=== PATIENT | male | born 1940 | race Caucasian/White ===

== ENCOUNTER 2018-02-10 14:17 | Outpatient (CLI) | payer MEDICARE, BC, SELFPAY ==
[2018-02-10 15:40] LABS: Abs Immature Grans 0.04 k/cumm (0.0-0.09); Absolute Basophil Count 0.02 k/cumm (0.0-0.2); Absolute Eosinophil Count 0.06 k/cumm (0.0-0.7); Absolute Lymphocyte Count 1.39 k/cumm (1.2-3.4); Absolute Monocyte Count 0.54 k/cumm (0.11-0.7); Absolute Neutrophil Count 5.64 k/cumm (1.2-6.7); Basophils % 0.3; Eosinophils % 0.8; HCT 36.6 % (40.0-50.0); HGB 13.1 g/dL (13.5-17.5); Immature Grans % 0.5; Lymphocytes % 18.1; Mean Corp. HGB Concentration 35.8 g/dL (32.0-36.0); Mean Corpuscular Hemoglobin 32.9 pg (27.0-33.0); Mean Platelet Volume 8.8 fL (8.0-11.0); Neutrophils % 73.3; Platelet Count 264 x1000/uL (130-400); RBC 3.98 m/cumm (4.50-6.00); RBC Distribution Width 12.5 % (11.8-14.1); White Blood Cell Count 7.69 k/cumm (4.4-10.8)
[2018-02-10 16:11] LABS: ALT 25 U/L (12-78); AST 19 U/L (15-37); Albumin 3.5 g/dL (3.4-5.0); Alkaline Phosphatase 78 U/L (46-116); Anion Gap 13.5 mmol/L (3-11); BUN 17 mg/dL (7-18); Bilirubin, Total 0.5 mg/dL (0.2-1.0); CO2 26.5 mmol/L (21.0-32.0); CREATININE 0.95 mg/dL (0.70-1.30); Calcium 8.8 mg/dL (8.5-10.1); Chloride 100 mmol/L (98-107); Glucose 148 mg/dL (70-100); Potassium 3.3 mmol/L (3.5-5.1); Sodium 140 mmol/L (136-145); Total Protein 6.9 g/dL (6.4-8.2)
[2018-02-13 09:22] LABS: PSA, Diagnostic 1.7 ng/ml (0-6.5)
== END 2018-02-10 14:37 ==
PROVIDERS: PCP Nurse Practitioner; Visit Provider Internal Medicine Hematology & Oncology
DX: C61 Malignant neoplasm of prostate (principal)
CPT/HCPCS: 36415; 80053; 84153; 85025

== ENCOUNTER 2018-05-02 14:36 | Outpatient (CLI) | payer MEDICARE, BC, SELFPAY ==
[2018-05-02 15:40] LABS: HCT 38.2 % (40.0-50.0); HGB 13.6 g/dL (13.5-17.5); Mean Corp. HGB Concentration 35.6 g/dL (32.0-36.0); Mean Corpuscular Hemoglobin 32.6 pg (27.0-33.0); Mean Corpuscular Volume 91.6 fL (80-95); Mean Platelet Volume 9.4 fL (8.0-11.0); Platelet Count 265 x1000/uL (130-400); RBC 4.17 m/cumm (4.50-6.00); RBC Distribution Width 12.3 % (11.8-14.1); White Blood Cell Count 7.86 k/cumm (4.4-10.8)
[2018-05-02 16:14] LABS: ALT 18 U/L (12-78); AST 19 U/L (15-37); Albumin 3.4 g/dL (3.4-5.0); Alkaline Phosphatase 85 U/L (46-116); Anion Gap 8.4 mmol/L (3-11); BUN 17 mg/dL (7-18); Bilirubin, Total 0.6 mg/dL (0.2-1.0); CO2 32.6 mmol/L (21.0-32.0); CREATININE 0.94 mg/dL (0.70-1.30); Calcium 9.2 mg/dL (8.5-10.1); Chloride 96 mmol/L (98-107); Glucose 102 mg/dL (70-100); Potassium 3.6 mmol/L (3.5-5.1); Sodium 137 mmol/L (136-145); Total Protein 6.7 g/dL (6.4-8.2)
== END 2018-05-02 14:56 ==
PROVIDERS: PCP Nurse Practitioner; Visit Provider Nurse Practitioner
DX: E78.00 Pure hypercholesterolemia, unspecified (principal); I10 Essential (primary) hypertension; R73.01 Impaired fasting glucose; Z01.818 Encounter for other preprocedural examination
CPT/HCPCS: 36415; 80053; 85027

== ENCOUNTER 2018-05-22 01:27 | Outpatient (CLI) | payer MEDICARE, BC, SELFPAY ==
[2018-05-22 11:51] LABS: Abs Immature Grans 0.05 k/cumm (0.0-0.09); Absolute Basophil Count 0.04 k/cumm (0.0-0.2); Absolute Eosinophil Count 0.22 k/cumm (0.0-0.7); Absolute Lymphocyte Count 2.49 k/cumm (1.2-3.4); Absolute Neutrophil Count 6.34 k/cumm (1.2-6.7); Basophils % 0.4; Eosinophils % 2.2; HCT 37.3 % (40.0-50.0); HGB 13.4 g/dL (13.5-17.5); Immature Grans % 0.5; Lymphocytes % 24.8; Mean Corp. HGB Concentration 35.9 g/dL (32.0-36.0); Mean Corpuscular Volume 91.9 fL (80-95); Mean Platelet Volume 8.6 fL (8.0-11.0); Neutrophils % 63.1; Platelet Count 289 x1000/uL (130-400); RBC 4.06 m/cumm (4.50-6.00); RBC Distribution Width 12.3 % (11.8-14.1); White Blood Cell Count 10.04 k/cumm (4.4-10.8)
[2018-05-22 12:03] LABS: ALT 18 U/L (12-78); AST 20 U/L (15-37); Albumin 3.4 g/dL (3.4-5.0); Alkaline Phosphatase 82 U/L (46-116); Anion Gap 10.9 mmol/L (3-11); BUN 17 mg/dL (7-18); Bilirubin, Total 0.5 mg/dL (0.2-1.0); CO2 27.1 mmol/L (21.0-32.0); CREATININE 0.87 mg/dL (0.70-1.30); Chloride 100 mmol/L (98-107); Glucose 112 mg/dL (70-100); Potassium 3.1 mmol/L (3.5-5.1); Sodium 138 mmol/L (136-145)
[2018-05-23 09:37] LABS: PSA, Diagnostic 2.5 ng/ml (0-6.5)
== END 2018-05-22 01:47 ==
PROVIDERS: PCP Nurse Practitioner; Visit Provider Internal Medicine Hematology & Oncology
DX: C61 Malignant neoplasm of prostate (principal)
CPT/HCPCS: 36415; 80053; 84153; 85025

== ENCOUNTER 2018-06-01 07:58 | Outpatient (CLI) | payer MEDICARE, BC, SELFPAY ==
[2018-06-01 13:44] LABS: BUN 15 mg/dL (7-18); CREATININE 0.97 mg/dL (0.70-1.30); Calcium 9.1 mg/dL (8.5-10.1); Chloride 101 mmol/L (98-107); Glucose 136 mg/dL (70-100); Sodium 137 mmol/L (136-145)
== END 2018-06-01 08:18 ==
PROVIDERS: PCP Nurse Practitioner; Visit Provider Internal Medicine Hematology & Oncology
DX: E87.6 Hypokalemia (principal)
CPT/HCPCS: 36415; 80048

== ENCOUNTER 2018-06-12 07:20 | Outpatient (CLI) | payer MEDICARE, BC, SELFPAY ==
[2018-06-12 11:00] LABS: HCT 42.2 % (40.0-50.0); HGB 14.8 g/dL (13.5-17.5); Mean Corp. HGB Concentration 35.1 g/dL (32.0-36.0); Mean Corpuscular Hemoglobin 32.7 pg (27.0-33.0); Mean Corpuscular Volume 93.4 fL (80-95); Mean Platelet Volume 9.2 fL (8.0-11.0); Platelet Count 316 x1000/uL (130-400); RBC 4.52 m/cumm (4.50-6.00); RBC Distribution Width 12.9 % (11.8-14.1)
[2018-06-12 11:09] LABS: ALT 17 U/L (12-78); AST 16 U/L (15-37); Albumin 3.4 g/dL (3.4-5.0); Alkaline Phosphatase 105 U/L (46-116); Anion Gap 8.6 mmol/L (3-11); BUN 17 mg/dL (7-18); Bilirubin, Total 0.6 mg/dL (0.2-1.0); CO2 29.4 mmol/L (21.0-32.0); CREATININE 0.94 mg/dL (0.70-1.30); Calcium 8.8 mg/dL (8.5-10.1); Chloride 97 mmol/L (98-107); Glucose 150 mg/dL (70-100); Potassium 3.6 mmol/L (3.5-5.1); Sodium 135 mmol/L (136-145); Total Protein 7.7 g/dL (6.4-8.2)
[2018-06-12 11:11] LABS: Absolute Basophil Count 0.14 k/cumm (0.0-0.2); Absolute Eosinophil Count 0.27 k/cumm (0.0-0.7); Absolute Lymphocyte Count 1.78 k/cumm (1.2-3.4); Absolute Monocyte Count 0.41 k/cumm (0.11-0.7); Diff Comment Manual Differential; RBC Morphology Normal
[2018-06-13 09:51] LABS: PSA, Diagnostic 4.5 ng/ml (0-6.5)
== END 2018-06-12 07:40 ==
PROVIDERS: PCP Nurse Practitioner; Visit Provider Internal Medicine Hematology & Oncology
DX: C61 Malignant neoplasm of prostate (principal)
CPT/HCPCS: 36415; 80053; 84153; 85025

== ENCOUNTER 2018-07-05 02:59 | Outpatient (CLI) | payer MEDICARE, BC, SELFPAY ==
[2018-07-05 10:13] LABS: Abs Immature Grans 0.13 k/cumm (0.0-0.09); Absolute Eosinophil Count 0.05 k/cumm (0.0-0.7); Absolute Lymphocyte Count 1.82 k/cumm (1.2-3.4); Absolute Monocyte Count 0.91 k/cumm (0.11-0.7); Absolute Neutrophil Count 9.35 k/cumm (1.2-6.7); Basophils % 0.2; Eosinophils % 0.4; HCT 39.9 % (40.0-50.0); HGB 14.2 g/dL (13.5-17.5); Immature Grans % 1.1; Lymphocytes % 14.8; Mean Corp. HGB Concentration 35.6 g/dL (32.0-36.0); Mean Corpuscular Hemoglobin 32.8 pg (27.0-33.0); Mean Corpuscular Volume 92.1 fL (80-95); Mean Platelet Volume 8.7 fL (8.0-11.0); Monocytes % 7.4; Neutrophils % 76.1; Platelet Count 292 x1000/uL (130-400); RBC 4.33 m/cumm (4.50-6.00); RBC Distribution Width 12.2 % (11.8-14.1); White Blood Cell Count 12.29 k/cumm (4.4-10.8)
[2018-07-05 10:16] LABS: Absolute Basophil Count 0.02 k/cumm (0.0-0.2)
[2018-07-05 10:17] LABS: ALT 17 U/L (12-78); AST 17 U/L (15-37); Albumin 3.6 g/dL (3.4-5.0); Alkaline Phosphatase 97 U/L (46-116); Anion Gap 10.8 mmol/L (3-11); BUN 17 mg/dL (7-18); Bilirubin, Total 0.8 mg/dL (0.2-1.0); CO2 27.2 mmol/L (21.0-32.0); Calcium 9.1 mg/dL (8.5-10.1); Chloride 95 mmol/L (98-107); Glucose 101 mg/dL (70-100); Potassium 3.5 mmol/L (3.5-5.1); Sodium 133 mmol/L (136-145); Total Protein 7.3 g/dL (6.4-8.2)
[2018-07-06 10:02] LABS: PSA, Diagnostic 3.8 ng/ml (0-6.5)
== END 2018-07-05 03:19 ==
PROVIDERS: PCP Nurse Practitioner; Visit Provider Internal Medicine Hematology & Oncology
DX: C61 Malignant neoplasm of prostate (principal)
CPT/HCPCS: 36415; 80053; 84153; 85025

== ENCOUNTER 2018-08-15 09:35 | Outpatient (CLI) | payer MEDICARE, BC, SELFPAY ==
[2018-08-15 10:32] LABS: Abs Immature Grans 0.08 k/cumm (0.0-0.09); Absolute Basophil Count 0.02 k/cumm (0.0-0.2); Absolute Eosinophil Count 0.05 k/cumm (0.0-0.7); Absolute Lymphocyte Count 1.35 k/cumm (1.2-3.4); Absolute Monocyte Count 0.78 k/cumm (0.11-0.7); Absolute Neutrophil Count 7.99 k/cumm (1.2-6.7); Basophils % 0.2; Eosinophils % 0.5; HCT 37.5 % (40.0-50.0); Immature Grans % 0.8; Lymphocytes % 13.1; Mean Corp. HGB Concentration 34.7 g/dL (32.0-36.0); Mean Corpuscular Hemoglobin 32.7 pg (27.0-33.0); Mean Corpuscular Volume 94.2 fL (80-95); Mean Platelet Volume 9.3 fL (8.0-11.0); Monocytes % 7.6; Neutrophils % 77.8; Platelet Count 284 x1000/uL (130-400); RBC 3.98 m/cumm (4.50-6.00); RBC Distribution Width 12.5 % (11.8-14.1); White Blood Cell Count 10.27 k/cumm (4.4-10.8)
[2018-08-15 10:55] LABS: ALT 21 U/L (12-78); AST 17 U/L (15-37); Albumin 3.5 g/dL (3.4-5.0); Alkaline Phosphatase 81 U/L (46-116); Anion Gap 9.6 mmol/L (3-11); BUN 17 mg/dL (7-18); Bilirubin, Total 0.8 mg/dL (0.2-1.0); CO2 27.4 mmol/L (21.0-32.0); CREATININE 0.87 mg/dL (0.70-1.30); Calcium 8.7 mg/dL (8.5-10.1); Chloride 98 mmol/L (98-107); Glucose 140 mg/dL (70-100); Potassium 3.5 mmol/L (3.5-5.1); Sodium 135 mmol/L (136-145); Total Protein 6.4 g/dL (6.4-8.2)
[2018-08-16 09:12] LABS: PSA, Diagnostic 2.7 ng/ml (0-6.5)
== END 2018-08-15 09:55 ==
PROVIDERS: PCP Nurse Practitioner; Visit Provider Internal Medicine Hematology & Oncology
DX: C61 Malignant neoplasm of prostate (principal)
CPT/HCPCS: 36415; 80053; 84153; 85025

== ENCOUNTER 2018-11-09 01:55 | Outpatient (CLI) | payer MEDICARE, SELFPAY ==
[2018-11-09 08:31] LABS: Hemoglobin A1C 6.6 % (4.5-6.2)
[2018-11-09 09:14] LABS: ALT 24 U/L (12-78); AST 17 U/L (15-37); Albumin 3.5 g/dL (3.4-5.0); Alkaline Phosphatase 79 U/L (46-116); Anion Gap 12.8 mmol/L (3-11); BUN 14 mg/dL (7-18); Bilirubin, Total 0.9 mg/dL (0.2-1.0); CO2 28.2 mmol/L (21.0-32.0); CREATININE 0.87 mg/dL (0.70-1.30); Calcium 8.8 mg/dL (8.5-10.1); Calculated LDL 66 mg/dL; Chloride 98 mmol/L (98-107); Cholesterol 159 mg/dL (50-200); Glucose 108 mg/dL (70-100); HDL Cholesterol 44 mg/dL (40-60); Potassium 3.4 mmol/L (3.5-5.1); Sodium 139 mmol/L (136-145); Total Protein 6.6 g/dL (6.4-8.2); Triglyceride 245 mg/dL (30-150)
== END 2018-11-09 02:15 ==
PROVIDERS: PCP Nurse Practitioner; Visit Provider Nurse Practitioner
DX: E78.00 Pure hypercholesterolemia, unspecified (principal); I10 Essential (primary) hypertension; R73.01 Impaired fasting glucose
CPT/HCPCS: 36415; 80053; 80061; 83721; 83036

== ENCOUNTER 2018-11-16 01:47 | Outpatient (CLI) | payer MEDICARE, SELFPAY ==
[2018-11-16 09:51] LABS: Absolute Basophil Count 0.03 k/cumm (0.0-0.2); Absolute Eosinophil Count 0.04 k/cumm (0.0-0.7); Absolute Monocyte Count 1.02 k/cumm (0.11-0.7); Basophils % 0.2; Eosinophils % 0.3; HCT 38.1 % (40.0-50.0); HGB 13.6 g/dL (13.5-17.5); Immature Grans % 0.8; Lymphocytes % 10.1; Mean Corp. HGB Concentration 35.7 g/dL (32.0-36.0); Mean Corpuscular Hemoglobin 32.9 pg (27.0-33.0); Mean Corpuscular Volume 92.3 fL (80-95); Mean Platelet Volume 8.7 fL (8.0-11.0); Monocytes % 7.9; Neutrophils % 80.7; Platelet Count 284 x1000/uL (130-400); RBC 4.13 m/cumm (4.50-6.00); RBC Distribution Width 11.9 % (11.8-14.1); White Blood Cell Count 12.89 k/cumm (4.4-10.8)
[2018-11-16 10:29] LABS: ALT 21 U/L (12-78); AST 13 U/L (15-37); Albumin 2.4 g/dL (3.4-5.0); Alkaline Phosphatase 70 U/L (46-116); Anion Gap 8.4 mmol/L (3-11); BUN 18 mg/dL (7-18); Bilirubin, Total 0.8 mg/dL (0.2-1.0); CO2 28.6 mmol/L (21.0-32.0); CREATININE 0.83 mg/dL (0.70-1.30); Calcium 9.2 mg/dL (8.5-10.1); Chloride 98 mmol/L (98-107); Glucose 147 mg/dL (70-100); Potassium 3.3 mmol/L (3.5-5.1); Sodium 135 mmol/L (136-145); Total Protein 6.7 g/dL (6.4-8.2)
[2018-11-17 10:19] LABS: PSA, Diagnostic 6.2 ng/ml (0-6.5)
== END 2018-11-16 02:07 ==
PROVIDERS: PCP Nurse Practitioner; Visit Provider Internal Medicine Hematology & Oncology
DX: C61 Malignant neoplasm of prostate (principal)
CPT/HCPCS: 36415; 80053; 84153; 85025

== ENCOUNTER 2018-12-05 01:38 | Outpatient (CLI) | payer MEDICARE, SELFPAY ==
--- NOTE | 2018-12-05 08:15 | DI.NM_ITS ---
SYMPTOMS/DIAGNOSIS: RISING PSA, EVALUATE FOR BONE METS, H/O PROSTATE CA, C61 WHOLE BODY BONE SCAN: 24.6 mCi of technetium 99 labelled methylene diphosphonate was injected intravenously. Examination is compared with the previous whole body bone scan from [facility] of 08/09/2017. There are a few small focal areas of minimally increased uptake involving lumbar spine, which are nonspecific and which are consistent with degenerative changes. A small focus of increased uptake is also noted at the proximal aspect of the left 7th rib. This is also nonspecific. Today's CT does not show a specific lesion at this site, but there are degenerative changes throughout the thoracic spine. Focus of mildly increased uptake is also seen in the right 6th rib anteriorly; this may represent prior trauma. No other area of significantly increased uptake seen. CONCLUSION: A few foci of nonspecific increased uptake are seen consistent with degenerative change. The pattern of presumed degenerative changes has changed slightly since the previous examination, but there is no convincing evidence of bony metastatic disease.
[2018-12-05 08:52] LABS: Abs Immature Grans 0.11 k/cumm (0.0-0.09); Absolute Basophil Count 0.03 k/cumm (0.0-0.2); Absolute Eosinophil Count 0.06 k/cumm (0.0-0.7); Absolute Lymphocyte Count 2.42 k/cumm (1.2-3.4); Basophils % 0.3; Eosinophils % 0.5; HCT 38.3 % (40.0-50.0); HGB 13.6 g/dL (13.5-17.5); Lymphocytes % 21.2; Mean Corp. HGB Concentration 35.5 g/dL (32.0-36.0); Mean Corpuscular Hemoglobin 33.1 pg (27.0-33.0); Mean Corpuscular Volume 93.2 fL (80-95); Mean Platelet Volume 9.2 fL (8.0-11.0); Monocytes % 8.8; Neutrophils % 68.2; Platelet Count 272 x1000/uL (130-400); RBC 4.11 m/cumm (4.50-6.00); RBC Distribution Width 12.3 % (11.8-14.1); White Blood Cell Count 11.42 k/cumm (4.4-10.8)
[2018-12-05 08:53] LABS: Absolute Neutrophil Count 7.79 k/cumm (1.2-6.7)
[2018-12-05 09:16] LABS: ALT 31 U/L (12-78); AST 20 U/L (15-37); Albumin 3.6 g/dL (3.4-5.0); Alkaline Phosphatase 70 U/L (46-116); Anion Gap 13.4 mmol/L (3-11); BUN 15 mg/dL (7-18); Bilirubin, Total 0.7 mg/dL (0.2-1.0); CO2 26.6 mmol/L (21.0-32.0); CREATININE 0.94 mg/dL (0.70-1.30); Calcium 8.7 mg/dL (8.5-10.1); Chloride 97 mmol/L (98-107); Glucose 112 mg/dL (70-100); Sodium 137 mmol/L (136-145); Total Protein 7.2 g/dL (6.4-8.2)
[2018-12-05 09:19] LABS: Potassium 2.5 mmol/L (3.5-5.1)
--- NOTE | 2018-12-05 10:30 | DI.CT_ITS ---
SYMPTOM/DIAGNOSIS: PROSTATE CA C61, RISING PSA. RESTAGING. CHEST , ABDOMEN AND PELVIS CT: 12/05 CT examination of the chest, abdomen and pelvis was performed with a bolus infusion of 100 cc Omnipaque 350 and ingestion of dilute Barium. There are multiple enlarged lymph nodes in the superior mediastinum with a 28 mm in diameter right paratracheal node at the level of the aortic arch. There is subcarinal adenopathy noted as well measuring up to about 4.5 cm in diameter on transaxial images. There is an 18 mm in diameter left perihilar rounded nodule in the lower lobe adjacent to the inner lobar fissure. No pleural effusion seen. Areas of atelectasis noted in the left lung base. Tracheobronchial tree appears intact. No evidence of pulmonary embolic disease. Thoracic aorta and major branches appear intact. Cardiac size within normal limits. No pericardial effusion. There are multiple low attenuation lesions in the liver. The largest, which lies in the right hepatic lobe, measures about 15 mm in diameter. This appears to have been present on previous examination of Feb 2012 and measures about 14 mm in diameter at that time. Most of the hepatic lesions have attenuation consistent with cysts. The largest lesion has intermediate attenuation and may represent hemangioma. Metastatic lesion not excluded but less likely considering the lack of waste/materials exchange specialist time. Gallbladder, bile ducts and pancreas are unremarkable. Right renal cysts noted. Otherwise the kidneys and adrenals are unremarkable. No retroperitoneal pelvic or mesenteric adenopathy. Small and large bowel are unremarkable in appearance. Abdominal aorta is of normal diameter and no major vascular abnormality is seen. Note is made of Fink rods at the lumbosacral junction. No focal bony lesion identified on scanning of the chest, abdomen or pelvis. Marked degenerative changes noted throughout the spine. CONCLUSION: Findings of mediastinal adenopathy and left perihilar lung mass, no prior chest CT available for comparison. The findings could represent metastatic disease from prostate carcinoma but the possibility of primary lung carcinoma would also have to be raised. Indeterminate hepatic lesions most likely represent benign process as they are largely unchanged from previous CT of 2011. No additional significant imaging findings.
[2018-12-05] MEDS: Omnipaque 350 MG/ML 100 ML BTL IJ (10:33)
[2018-12-05] MEDS: Breeza Beverage 473 ML BTL PO (10:34)
[2018-12-05] MEDS: Omnipaque 350 MG/ML 50 ML BTL PO (10:34)
--- NOTE | 2018-12-06 05:09 | NUR.NOTE ---
Nursing Note: faxed referal 12/06/18
[2018-12-06 09:43] LABS: PSA, Screening 7.4 ng/ml (0-6.5)
== END 2018-12-05 01:58 ==
PROVIDERS: PCP Nurse Practitioner; Visit Provider Nurse Practitioner Adult Health
DX: R97.21 Rising PSA following treatment for malignant neoplasm of prostate (principal)
CPT/HCPCS: 74177; 78306; 80053; 84153; 71260; 85025; J3490; Q9967

== ENCOUNTER 2018-12-05 11:34 | Emergency (ER) | payer MEDICARE, SELFPAY ==
--- NOTE | 2018-12-05 11:38 | NUR.NOTE ---
Nursing Note: pt was sent here from DR Cottrell for having a critical K level pt took 2 of his at home potassium pills 1100 to fix this PT is unsure of the dosage
[2018-12-05 11:40] VITALS: BP 152/73; PULSE 72; RESP 16; TEMP 36.5; O2SAT 95
--- NOTE | 2018-12-05 11:54 | W.ED.GENAD ---
Discharge Plan Disposition Patient Disposition: HOME Condition: Good Discharge Details Chief Complaint: GenMedical Clinical Impression: Hypokalemia Primary Care Provider: Kenisha Steinberg ED Provider: Alex Garay Home Meds and New Rx's Prescriptions: Continued acetaminophen [Tylenol] 325 MG tablet 1 - 2 tab PO PRN RF: 0 lupron 1 ea IM DIRECTED RF: 0 aspirin [Aspirin Low-Strength] 81 MG tablet,chewable 81 mg PO DAILY Qty: 1 RF: 12 multivitamin [Daily Vitamin] 1 EACH tablet 1 ea PO DAILY RF: 0 naproxen 250 MG tablet 250 mg PO PRN RF: 0 capsaicin 60 GM cream 1 applic Topical DAILY RF: 0 magnesium oxide 400 MG tablet 400 mg PO DAILY RF: 0 abiraterone [Zytiga] 250 MG tablet 4 tab PO DAILY RF: 0 prednisone 5 MG tablet 5 mg PO BID RF: 0 calcium carbonate-vitamin D3 [Calcium 600 + D(3)] 1 EACH tablet 1 ea PO BID RF: 0 omega 0-azv-fkw-fish oil 1 EACH capsule 1 ea PO DAILY RF: 0 potassium chloride 10 MEQ capsule, extended release 40 meq PO DAILY Qty: 360 RF: 3 omeprazole 20 mg capsule,delayed release(DR/EC) 20 mg PO DAILY Qty: 90 RF: 3 atenolol-chlorthalidone [Tenoretic 50] 50-25 mg tablet 1 tab PO DAILY Qty: 90 RF: 3 atorvastatin 20 mg tablet 20 mg PO QHS Qty: 90 RF: 3 Discharge Instructions Instructions: Hypokalemia (ED) Additional Instructions: For the next 3 days please take 3 tablets in the morning and 3 tablets in the afternoon for a total of 60 mEq daily. Please follow-up with your primary care provider for redraw of your labs and return to the emergency department for any new or worsening symptoms. Referrals: Kenisha Steinberg, JENNYFER [Primary Care Provider] - 2 days (For recheck of your labs) Discharge Data Discharge Date/Time-TO BE ENTERED AT DEPARTURE: 12/05/18 15:35 Medical Decision Making Patient presenting the emergency department for chief complaint of low potassium. Patient states that he was informed by his oncologist that he should come to the emergency department due to low potassium of 2.5. Patient states that he has ongoing low potassium and typically takes potassium pills but due to needing to be n.p.o. for CT imaging that he had done this morning he had not taken his oral potassium. When finding out it was low he took 2 tablets prior to coming to the emergency department. This was a total of 20 mEq. Patient denies any chest pain, muscle cramps, states that he is otherwise asymptomatic and has no complaints. Physical exam is unremarkable. Plan to check patient's labs and further give potassium repletion. Of notation patient is due for a bone scan and already had preprocedural injection given that patient is asymptomatic I feel that if radiology can still perform this that patient is stable to continue with this test. Review of labs does show a potassium of 2.7 nonspecific elevated white blood cell count, low sodium and chloride and increased anion gap. Given this patient was given IV potassium and plan to give further oral potassium after 10 mEq IV. Patient reassessed after IV potassium was completed and still remains asymptomatic. Given this I feel that patient can be safely discharged with continuing oral potassium. For the next 3 days I did have patient increase potassium by 20 mEq for a total of 60 mEq daily and then prefer to have patient rechecked by primary care provider for reassessment of his labs. Return precautions were discussed. After discussion of diagnosis and plan of care patient has no further needs, questions, or concerns and states clear understanding to return to the emergency department for any worsening symptoms. HPI General Mode of arrival: ambulatory. Date/Time Provider Initiated Documentation: 12/05/18 11:42. Limitations to Documentation: no limitations. Information obtained by: patient and RN notes reviewed. History of Present Illness 78 year old M presents to the emergency department with the chief complaint of low potassium, described as similar to prior episodes, Quality is described as other (Denies any pain or discomfort), Patient notes no other symptoms.. Patient did receive the following treatments prior to arrival, other (2 tablets oral potassium total 20meq) Related Data Home Medications Medication Instructions Recorded Confirmed acetaminophen [Tylenol] 1 - 2 tab PO PRN 07/10/12 12/05/18 Lupron 1 ea IM DIRECTED 07/12/12 12/05/18 aspirin [Aspirin Low-Strength] 81 mg PO DAILY #1 tab-cap 08/31/13 12/05/18 multivitamin [Daily Vitamin] 1 ea PO DAILY 11/23/13 12/05/18 naproxen 250 mg PO PRN 11/18/14 12/05/18 capsaicin 1 applic TOPICAL DAILY script 07/22/16 12/05/18 magnesium oxide 400 mg PO DAILY 08/27/16 12/05/18 abiraterone [Zytiga] 4 tab PO DAILY 10/08/16 12/05/18 calcium carbonate-vitamin D3 1 ea PO BID 03/10/17 12/05/18 [Calcium 600 + D(3)] prednisone 5 mg PO BID tab-cap 03/10/17 12/05/18 omega 3-kzz-kml-fish oil 1 ea PO DAILY 08/18/17 12/05/18 potassium chloride 40 meq PO DAILY #360 tab-cap 11/23/17 12/05/18 omeprazole 20 mg capsule,delayed 20 mg PO DAILY #90 cap 06/19/18 12/05/18 release atenolol 50 mg-chlorthalidone 25 1 tab PO DAILY #90 tab-cap 08/14/18 12/05/18 mg tablet atorvastatin 20 mg tablet 20 mg PO QHS #90 tab 10/30/18 12/05/18 Previous Rx's Medication Instructions Recorded potassium chloride 40 meq PO DAILY #360 tab-cap 11/23/17 omeprazole 20 mg capsule,delayed 20 mg PO DAILY #90 cap 06/19/18 release atenolol 50 mg-chlorthalidone 25 1 tab PO DAILY #90 tab-cap 08/14/18 mg tablet atorvastatin 20 mg tablet 20 mg PO QHS #90 tab 10/30/18 Allergies Allergy/AdvReac Type Severity Reaction Status Date / Time amlodipine Allergy Severe swelling Verified 12/05/18 11:42 of face losartan AdvReac Intermediate Jittery Verified 12/05/18 11:42 hydrochlorothiazide AdvReac Unknown Verified 12/05/18 11:42 lisinopril AdvReac cough Verified 12/05/18 11:42 General Stated Complaint: GenMedical BRANDON: 3 Review of Systems Constitutional Denies body ache(s), Denies chills and Denies fever(s) Cardiovascular Denies chest pain and Denies dyspnea Respiratory Denies dyspnea Gastrointestinal Denies abdominal pain, Denies nausea and Denies vomiting Musculoskeletal Denies myalgias and Denies muscle cramps Integumentary/Breasts Denies rash Neurologic Denies sensory deficit [facility] Medical History GERD (gastroesophageal reflux disease) HLD (hyperlipidemia) HTN (hypertension) IFG (impaired fasting glucose) Prostate cancer Surgical History S/P cervical discectomy (Resolved 06/13/18) Social History Smoking/Tobacco Use Status: Never Alcohol Intake: never Drug use: Never Do you feel safe at home: Yes Do you feel safe in your relationship?: Yes Exam Const General: cooperative, no acute distress and not ill appearing Orientation: alert, awake and oriented x3 HENMT Mouth: moist mucous membranes Resp Effort & Inspection: normal respiratory effort, able to speak in complete sentences and no respiratory distress Cardio Rate: regular rate Rhythm: regular rhythm Heart Sounds: S1 normal, S2 normal, no click, no gallops, no murmurs and no rubs Neuro General: alert, awake, oriented x3, moves all extremities and no focal motor deficits Sensory Exam: no sensory deficits noted Course Vital Signs Temperature 36.5 C 12/05/18 11:40 Pulse 72 12/05/18 11:40 Respiratory Rate 16 12/05/18 11:40 Blood Pressure 152/73 H 12/05/18 11:40 Pulse Oximetry 95 12/05/18 11:40 Temperature 36.5 C 12/05/18 11:40 Temperature Source Skin 12/05/18 11:40 Pulse 72 12/05/18 11:40 Respiratory Rate 16 12/05/18 11:40 Respiratory Effort 12/05/18 11:42 Blood Pressure 152/73 H 12/05/18 11:40 Blood Pressure Position Supine 12/05/18 11:40 Pulse Oximetry 95 12/05/18 11:40 Oxygen Delivery Method Room Air 12/05/18 11:40 Oxygen Flow Rate 0 12/05/18 11:40 Pain Level 0 12/05/18 11:40
[2018-12-05 12:04] LABS: Abs Immature Grans 0.11 k/cumm (0.0-0.09); Absolute Basophil Count 0.03 k/cumm (0.0-0.2); Absolute Eosinophil Count 0.06 k/cumm (0.0-0.7); Absolute Lymphocyte Count 2.16 k/cumm (1.2-3.4); Absolute Monocyte Count 0.91 k/cumm (0.11-0.7); Basophils % 0.2; Eosinophils % 0.5; HCT 38.7 % (40.0-50.0); HGB 13.7 g/dL (13.5-17.5); Immature Grans % 0.9; Mean Corp. HGB Concentration 35.4 g/dL (32.0-36.0); Mean Corpuscular Hemoglobin 32.7 pg (27.0-33.0); Mean Corpuscular Volume 92.4 fL (80-95); Mean Platelet Volume 9.2 fL (8.0-11.0); Monocytes % 7.2; Neutrophils % 74.2; Platelet Count 265 x1000/uL (130-400); RBC 4.19 m/cumm (4.50-6.00); RBC Distribution Width 12.2 % (11.8-14.1)
[2018-12-05 12:05] LABS: Absolute Neutrophil Count 9.42 k/cumm (1.2-6.7)
[2018-12-05 12:20] LABS: ALT 28 U/L (12-78); AST 18 U/L (15-37); Albumin 3.4 g/dL (3.4-5.0); Alkaline Phosphatase 67 U/L (46-116); Anion Gap 12.2 mmol/L (3-11); BUN 15 mg/dL (7-18); Bilirubin, Total 0.7 mg/dL (0.2-1.0); CO2 26.8 mmol/L (21.0-32.0); CREATININE 0.97 mg/dL (0.70-1.30); Calcium 8.4 mg/dL (8.5-10.1); Chloride 95 mmol/L (98-107); Glucose 159 mg/dL (70-100); Sodium 134 mmol/L (136-145)
[2018-12-05 12:21] LABS: Potassium 2.7 mmol/L (3.5-5.1)
[2018-12-05] MEDS: POTASSIUM CHLORIDE 10 MEQ/100 ML BAG 100 MEQ IVPB (12:59)
[2018-12-05] MEDS: Normal Saline 500 ML IV (12:59)
[2018-12-05 17:42] VITALS: BP 152/73; PULSE 72; RESP 16; TEMP 36.5; O2SAT 95
== END 2018-12-05 15:35 | disposition home or self-care (01) ==
PROVIDERS: Emergency Provider Nurse Practitioner Family; PCP Nurse Practitioner
DX: E87.6 Hypokalemia (principal); I10 Essential (primary) hypertension; C61 Malignant neoplasm of prostate
CPT/HCPCS: 36415; 74177; 78306; 80053; 84153; 93005; 96361; 96365; 99284; 71260; 85025; 93010; 99283; J3480; J3490; Q9967

== ENCOUNTER 2018-12-08 08:14 | Outpatient (CLI) | payer MEDICARE, SELFPAY ==
[2018-12-08 09:31] LABS: Potassium 3.3 mmol/L (3.5-5.1)
== END 2018-12-08 08:34 ==
PROVIDERS: PCP Nurse Practitioner; Visit Provider Nurse Practitioner
DX: E87.6 Hypokalemia (principal)
CPT/HCPCS: 36415; 84132

== ENCOUNTER 2018-12-13 01:40 | Outpatient (CLI) | payer MEDICARE, SELFPAY ==
[2018-12-13 07:40] LABS: Absolute Basophil Count 0.02 k/cumm (0.0-0.2); Absolute Eosinophil Count 0.09 k/cumm (0.0-0.7); Absolute Lymphocyte Count 1.58 k/cumm (1.2-3.4); Absolute Monocyte Count 0.78 k/cumm (0.11-0.7); Absolute Neutrophil Count 9.62 k/cumm (1.2-6.7); Basophils % 0.2; Eosinophils % 0.7; HCT 37.9 % (40.0-50.0); HGB 13.2 g/dL (13.5-17.5); Immature Grans % 0.8; Mean Corp. HGB Concentration 34.8 g/dL (32.0-36.0); Mean Corpuscular Hemoglobin 32.8 pg (27.0-33.0); Monocytes % 6.4; Neutrophils % 78.9; Platelet Count 322 x1000/uL (130-400); RBC 4.03 m/cumm (4.50-6.00); RBC Distribution Width 12.2 % (11.8-14.1); White Blood Cell Count 12.19 k/cumm (4.4-10.8)
[2018-12-13 07:53] LABS: ALT 31 U/L (12-78); AST 21 U/L (15-37); Albumin 3.3 g/dL (3.4-5.0); Alkaline Phosphatase 69 U/L (46-116); Anion Gap 12.7 mmol/L (3-11); BUN 14 mg/dL (7-18); Bilirubin, Total 1.1 mg/dL (0.2-1.0); CO2 25.3 mmol/L (21.0-32.0); CREATININE 0.88 mg/dL (0.70-1.30); Calcium 8.6 mg/dL (8.5-10.1); Chloride 97 mmol/L (98-107); Glucose 125 mg/dL (70-100); Potassium 3.4 mmol/L (3.5-5.1); Sodium 135 mmol/L (136-145); Total Protein 6.9 g/dL (6.4-8.2)
[2018-12-14 11:47] LABS: PSA, Screening 9.6 ng/ml (0-6.5)
== END 2018-12-13 02:00 ==
PROVIDERS: Nurse Practitioner Adult Health; PCP Nurse Practitioner; Visit Provider Internal Medicine Hematology & Oncology
DX: C61 Malignant neoplasm of prostate (principal)
CPT/HCPCS: 36415; 80053; 84153; 85025

== ENCOUNTER 2019-01-08 13:08 | Emergency (ER) | payer MEDICARE, SELFPAY ==
[2019-01-08] VITALS (29 sets, daily range): BP systolic 106–135; BP diastolic 48–76; PULSE 60–75; RESP 14–26; TEMP 36.4–36.9; O2SAT 88–95
--- NOTE | 2019-01-08 13:23 | ED.GENADUL_ITS ---
Discharge Plan Disposition Patient Disposition: HOME Condition: Stable Discharge Details Chief Complaint: SOB Clinical Impression: Dyspnea, Hypokalemia, Hypomagnesemia, Left lower lobe pneumonia Primary Care Provider: Kenisha Steinberg ED Provider: Yadiel Soares Home Meds and New Rx's Prescriptions: New cefpodoxime 200 mg tablet 200 mg PO BID Qty: 20 RF: 0 Continued fexofenadine [Allergy Relief (fexofenadine)] 180 mg tablet 180 mg PO DAILY Qty: 7 RF: 0 acetaminophen [Tylenol] 325 MG tablet 1 - 2 tab PO PRN RF: 0 lupron 1 ea IM DIRECTED RF: 0 aspirin [Aspirin Low-Strength] 81 MG tablet,chewable 81 mg PO DAILY Qty: 1 RF: 12 multivitamin [Daily Vitamin] 1 EACH tablet 1 ea PO DAILY RF: 0 naproxen 250 MG tablet 250 mg PO PRN RF: 0 capsaicin 60 GM cream 1 applic Topical DAILY RF: 0 magnesium oxide 400 MG tablet 400 mg PO DAILY RF: 0 calcium carbonate-vitamin D3 [Calcium 600 + D(3)] 1 EACH tablet 1 ea PO BID RF: 0 omega 8-nex-bnf-fish oil 1 EACH capsule 1 ea PO DAILY RF: 0 omeprazole 20 mg capsule,delayed release(DR/EC) 20 mg PO DAILY Qty: 90 RF: 3 atenolol-chlorthalidone [Tenoretic 50] 50-25 mg tablet 1 tab PO DAILY Qty: 90 RF: 3 atorvastatin 20 mg tablet 20 mg PO QHS Qty: 90 RF: 3 enzalutamide 40 mg capsule 160 mg PO DAILY RF: 0 potassium chloride 10 MEQ capsule, extended release 20 meq PO TID RF: 0 Discharge Instructions Instructions: Hypokalemia (ED), Dyspnea (ED), Hypomagnesemia (ED), Pneumonia (ED) Additional Instructions: Please return immediately to the emergency department if you develop any new or worsening symptoms or if you become otherwise concerned. It is extremely important that you call as soon as possible to schedule follow-up appointments this week with both your primary care doctor and your oncologist as we discussed. You received potassium in the emergency department today and should continue your potassium supplementation at home. Please take antibiotics as prescribed. Follow-up with Dr. Cottrell in clinic as planned. Return for any acute concern Referrals: Jonnie Cottrell MD [MD CONSULTING PHYSICIAN] - Kenisha Steinberg NP [Primary Care Provider] - Discharge Data Discharge Date/Time-TO BE ENTERED AT DEPARTURE: 01/08/19 18:47 Medical Decision Making <Marilee Johnson MD - Last Filed: 01/29/19 16:55> Loyd Roche is an 78-year-old man with a history of prostate cancer currently undergoing treatment, hypertension, hyperlipidemia who presented to the emergency department with dyspnea with exertion for the past 2 weeks. On exam patient is well and nontoxic appearing. Lungs are clear to auscultation. No lower extremity edema or posterior calf tenderness to palpation. Concern for pneumonia versus PE versus less likely ACS versus other. Exam/history is not consistent with acute emergent intracranial process, acute emergent intra- abdominal process, sepsis. Plan for EKG, CT chest, screening labs, telemetry. Will monitor and reassess. Labs resulted with hypo kalemia at 2.7, magnesium at 1.5. Will replete potassium and magnesium. I did discuss patient presentation results with Dr. Cottrell, his oncologist, who agreed with CT chest and recommended that if patient not be admitted for respiratory concerns, then patient could either be more preferably admitted for inpatient monitoring of his electrolyte status or followed as an outpatient if patient desired discharge. Patient continues to have no complaint while at rest. We will continue to monitor. Patient continues to be asymptomatic on reassessment. Patient signed out to Dr. Soares at time of shift change with CT, repeat troponin, reassessment pending. Medical Records Medical records reviewed: Yes I reviewed the patient's medical records. Lab Data Lab results reviewed: Yes I reviewed the patient's lab results. ECG Data Attestation: I personally reviewed and interpreted this ECG (s) as follows: Interpretation: EKG shows sinus rhythm at 72, normal axis, diffuse nonspecific ST changes, these same changes are present on EKG 05/13, however due to artifact on prior EKG unclear if changes are at baseline. Nondiagnostic EKG, no STEMI. <Yadiel Soares MD - Last Filed: 01/08/19 20:00> Received signout from Dr. Johnson. Please see her note regarding details initial presentation, exam, plan of care. Patient's CT scan of the chest revealed new airspace consolidation in the left lower lobe with air bronchograms, favoring pneumonia. Bilateral atelectasis. Stable 2 cm nodule. Stable liver densities. Repeat troponin negative. CT scan with developing left lower lobe airspace disease consistent with pneumonia. Discussed with patient he opts for treatment as an outpatient as per previous conversation with Dr. Johnson. We will start him on oral cephalosporin, he will follow-up with Dr. Cottrell in clinic. He is stable and improved at this time. ECG Data Attestation: I personally reviewed and interpreted this ECG (s) as follows: Interpretation: EKG obtained at 1818 hrs. reveals a normal sinus rhythm with a rate of 70, the QRS is narrow and there is no ST segment elevation. Nonspecific ST segment flattening present. HPI <Marilee Johnson MD - Last Filed: 01/29/19 16:55> General Mode of arrival: ambulatory . Date/Time Provider Initiated Documentation: 01/08/19 13:23 . Limitations to Documentation: no limitations . Information obtained by: patient, family, RN notes reviewed and old records reviewed . HPI Narrative: Loyd Roche is an 78-year-old man with a history of prostate cancer currently being treated, hypertension, hyperlipidemia presenting to the emergency department with shortness of breath. Patient is accompanied by his also provides a history. They report that patient has been on oral chemotherapeutic agents recently. Approximately 2 weeks ago his oral chemotherapeutic agent was switched. At that time he seemed to develop some shortness of breath with exertion. 1 week ago his oral chemotherapeutic agents were stopped entirely. Patient reports that his shortness of breath seems to have continued to progress gradually. He reports that he has no shortness of breath at rest or when lying flat. He denies having any pain. He notes mild dry cough for approximately 2 weeks. Denies fevers, vomiting, diarrhea, numbness, weakness, rash. Patient states he has been taking his medications as prescribed. No other recent illness. Has had some decreased appetite recently. Related Data Home Medications Medication Instructions Recorded Confirmed acetaminophen [Tylenol] 1 - 2 tab PO PRN 07/10/12 01/08/19 Lupron 1 ea IM DIRECTED 07/12/12 01/08/19 aspirin [Aspirin Low-Strength] 81 mg PO DAILY #1 tab-cap 08/31/13 01/08/19 multivitamin [Daily Vitamin] 1 ea PO DAILY 11/23/13 01/08/19 naproxen 250 mg PO PRN 11/18/14 01/08/19 capsaicin 1 applic TOPICAL DAILY script 07/22/16 01/08/19 magnesium oxide 400 mg PO DAILY 08/27/16 01/08/19 calcium carbonate-vitamin D3 1 ea PO BID 03/10/17 01/08/19 [Calcium 600 + D(3)] omega 7-wga-ixe-fish oil 1 ea PO DAILY 08/18/17 01/08/19 omeprazole 20 mg capsule,delayed 20 mg PO DAILY #90 cap 06/19/18 01/08/19 release atenolol 50 mg-chlorthalidone 25 1 tab PO DAILY #90 tab-cap 08/14/18 01/08/19 mg tablet atorvastatin 20 mg tablet 20 mg PO QHS #90 tab 10/30/18 01/08/19 enzalutamide 40 mg capsule 160 mg PO DAILY 12/28/18 01/02/19 fexofenadine 180 mg tablet 180 mg PO DAILY #7 tab 01/02/19 01/08/19 cefpodoxime 200 mg PO BID #20 tab 01/08/19 potassium chloride 20 meq PO TID 01/08/19 01/08/19 Previous Rx's Medication Instructions Recorded omeprazole 20 mg capsule,delayed 20 mg PO DAILY #90 cap 06/19/18 release atenolol 50 mg-chlorthalidone 25 1 tab PO DAILY #90 tab-cap 08/14/18 mg tablet atorvastatin 20 mg tablet 20 mg PO QHS #90 tab 10/30/18 fexofenadine 180 mg tablet 180 mg PO DAILY #7 tab 01/02/19 cefpodoxime 200 mg PO BID #20 tab 01/08/19 Allergies Allergy/AdvReac Type Severity Reaction Status Date / Time amlodipine Allergy Severe swelling Verified 01/08/19 13:29 of face losartan AdvReac Intermediate Jittery Verified 01/08/19 13:29 hydrochlorothiazide AdvReac Unknown Verified 01/08/19 13:29 lisinopril AdvReac cough Verified 01/08/19 13:29 General Stated Complaint: SOB BRANDON: 3 Review of Systems <Marilee Johnson MD - Last Filed: 01/29/19 16:55> Review of Systems Narrative: Constitutional: denies fevers Eyes: denies eye pain ENT: denies facial pain, dental pain, sore throat Cardiovascular: denies chest pain, edema Respiratory: denies SOB at rest, orthopnea, PND, reports dyspnea on exertion, cough GI: denies abdominal pain, vomiting, diarrhea : denies flank pain MSK: denies back pain, neck pain, arthralgias, myalgias Skin: denies rash Neuro: denies headaches, numbness, weakness PFSH <Marilee Johnson MD - Last Filed: 01/29/19 16:55> Medical History GERD (gastroesophageal reflux disease) HLD (hyperlipidemia) HTN (hypertension) IFG (impaired fasting glucose) Prostate cancer Surgical History (Updated 12/15/18 @ 13:34 by Kathy Issa RN) S/P cervical discectomy (Resolved 06/13/18) Anterior discectomy and instrumented fusion C5-6 S/P lumbar spinal fusion (Acute) 1986 and 1989 S/P prostatectomy (Acute ~03/2003) Status post lumbar spinal fusion (Acute ~10/2005) C5 Social History Smoking/Tobacco Use Status: Never Alcohol Intake: never Drug use: Never Do you feel safe at home: Yes Do you feel safe in your relationship?: Yes Exam <Marilee Johnson MD - Last Filed: 01/29/19 16:55> Narrative Exam Narrative: Constitutional: well and [id number]-ghtwpsimp, pleasant, conversing normally HENT: head atraumatic/normocephalic/normal inspection, mucous membranes moist Eyes: conjunctiva normal, sclera normal, pupils 3mm b/l Neck: no stridor, normal ROM, trachea midline Chest: normal inspection Resp: normal work of breathing, LCTAB Cardio: normal rate, normal rhythm, no murmur appreciated GI: abdomen soft, non-tender, non-distended Back: normal inspection, no rash Skin: warm, dry, normal color, no rash Neuro: alert, not altered, grossly non-focal, normal tone Ext: no edema, no posterior calf tenderness to palpation Psych: normal mood, normal affect, normal behavior Course <Marilee Johnson MD - Last Filed: 01/29/19 16:55> Vital Signs Vital signs: Vital Signs Temperature 36.9 C 01/08/19 13:16 Pulse 74 01/08/19 13:16 Respiratory Rate 15 01/08/19 13:16 Blood Pressure 135/69 01/08/19 13:16 Pulse Oximetry 95 01/08/19 13:16 Temperature 36.9 C 01/08/19 13:16 Temperature Source Skin 01/08/19 13:16 Pulse 74 01/08/19 13:16 Respiratory Rate 15 01/08/19 13:16 Blood Pressure 135/69 01/08/19 13:16 Blood Pressure Position Sitting 01/08/19 13:16 Pulse Oximetry 95 01/08/19 13:16 Oxygen Delivery Method Room Air 01/08/19 13:16 Oxygen Flow Rate 0 01/08/19 13:16 Pain Level 0 01/08/19 13:16 Sign Out <Marilee Johnson MD - Last Filed: 01/29/19 16:55> Sign Out Data: Sign Out Comment: Patient signed out to Dr. Soares pending CT scan results at time of shift change Last updated by Marilee Johnson MD at 01/08/19 16:53
[2019-01-08 13:44] LABS: Abs Immature Grans 0.03 k/cumm (0.0-0.09); Absolute Basophil Count 0.03 k/cumm (0.0-0.2); Absolute Eosinophil Count 0.21 k/cumm (0.0-0.7); Absolute Lymphocyte Count 1.32 k/cumm (1.2-3.4); Absolute Monocyte Count 0.71 k/cumm (0.11-0.7); Absolute Neutrophil Count 3.28 k/cumm (1.2-6.7); Basophils % 0.5; Eosinophils % 3.8; HCT 32.8 % (40.0-50.0); HGB 11.8 g/dL (13.5-17.5); Immature Grans % 0.5; Lymphocytes % 23.7; Mean Corpuscular Hemoglobin 32.9 pg (27.0-33.0); Mean Corpuscular Volume 91.4 fL (80-95); Mean Platelet Volume 8.5 fL (8.0-11.0); Monocytes % 12.7; Neutrophils % 58.8; Platelet Count 353 x1000/uL (130-400); RBC 3.59 m/cumm (4.50-6.00); RBC Distribution Width 12.3 % (11.8-14.1); White Blood Cell Count 5.58 k/cumm (4.4-10.8)
[2019-01-08 13:57] LABS: INR 1.1 (0.9-1.1); PTT Activated 25.2 sec (21.0-31.4); Prothrombin Time 10.9 sec (9.3-11.0)
[2019-01-08 14:01] LABS: ALT 25 U/L (16-63); AST 34 U/L (15-37); Albumin 2.9 g/dL (3.4-5.0); Alkaline Phosphatase 72 U/L (46-116); Anion Gap 10.9 mmol/L (3-11); BUN 7 mg/dL (7-18); CO2 28.1 mmol/L (21.0-32.0); CREATININE 0.99 mg/dL (0.70-1.30); Calcium 8.1 mg/dL (8.5-10.1); Chloride 92 mmol/L (98-107); Glucose 150 mg/dL (70-100); Magnesium 1.5 mg/dL (1.8-2.4); NT-proBNP 323 pg/mL; Sodium 131 mmol/L (136-145); Total Protein 6.4 g/dL (6.4-8.2)
[2019-01-08 14:04] LABS: Potassium 2.7 mmol/L (3.5-5.1); Troponin I < 0.05 ng/mL (0.00-0.06)
[2019-01-08 14:13] LABS: D-Dimer 1698 ng/mlFEU (<500)
--- NOTE | 2019-01-08 14:14 | DI.CT_ITS ---
EXAM: CT CHEST PE CTA CLINICAL HISTORY: SOB WITH EXERTION TECHNIQUE: CT angiography was performed with multi slice acquisition and multi planar and 3D reconst ruction. CT angiography was performed utilizing intravenous infusion of 100 cc of Omnipaque 350. COMPARISON: CT CHEST/ABD/PEL W from 12/05/2018 FINDINGS: The examination is compared with most recent prior CT 12/05/2018. Images obtained through the upper abdomen show unremarkable appearance of visualized portions of kidneys except for a previously noted right renal cyst. Adrenals unremarkable. Poorly defined low attenuation hepatic lesions again noted , these had previously been noted to be stable since 2011. No evidence of pulmonary embolic disease. No thoracic aortic dissection or aneurysm. Stable mediast inal adenopathy noted since December 05. Left perihilar mass again noted about 17 millimeters in greatest diameter, grossly unchanged from Nov ust study. There is increasing consolidation in the left lower lobe distal to the level of the mass which may represent a postobstructive consolidation, this was not present on the previous examination . No other significant change in appearance of the lungs. Tracheobronchial tree appears intact exce pt for narrowing of subsegmental left lower lobe bronchi. IMPRESSION: 1. No evidence of pulmonary embolic disease. 2. New left lower lobe air space consolidation, suspect postobstructive pneumonia.
[2019-01-08] MEDS: POTASSIUM CHLORIDE 20 MEQ/100 ML BAG 50 MEQ IVPB (14:20)
[2019-01-08] MEDS: MAGNESIUM SULFATE 2 GM/50 ML BAG IVPB (14:20)
[2019-01-08] MEDS: Normal Saline 1,000 ML 100 ML IV (14:22)
[2019-01-08] MEDS: Normal Saline Flush 10 ML SYR IVP (14:28)
[2019-01-08] MEDS: Omnipaque 350 MG/ML 100 ML BTL IJ (16:48)
--- NOTE | 2019-01-08 17:33 | DI.VRAD_ITS ---
EXAM: CT Angiography Chest With Contrast EXAM DATE/TIME: 01/08/2019 2:14 PM CLINICAL HISTORY: 78 years old, male; Other: SOB with exertion TECHNIQUE: Imaging protocol: Computed tomographic angiography of the chest with intravenous contrast. 3D rendering: MIP reconstructed images were created and reviewed. Radiation optimization: All CT scans at this facility use at least one of these dose optimization techniques: automated exposure control; mA and/or kV adjustment per patient size (includes targeted exams where dose is matched to clinical indication); or iterative reconstruction. Contrast material: OMNIPAQUE 350; Contrast volume: 100 ml; Contrast route: IV; COMPARISON: CT CHEST/ABD/PEL W 12/05/2018 10:20 AM FINDINGS: Pulmonary arteries: Normal. No pulmonary emboli. 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 No acute aortic pathology. Mild calcific atherosclerotic disease of the aorta is present. Thyroid: Heterogeneous thyroid gland may be further evaluated with ultrasound if clinically warranted and feasible. Lungs: Stable 2 cm nodule in the anterior segment of the left upper lobe on image 42 series 5 could be related to infiltrative disease from known prostate carcinoma. New airspace consolidation in the left lower lobe with associated air bronchograms favors infectious pneumonia in the appropriate medical setting. There is superimposed atelectasis at the left lung base likewise appreciated. There is dependent atelectasis also noted in both lungs. Remainder of the lungs appear grossly clear. Airways are patent. Pleural space: Unremarkable. No pneumothorax. No pleural effusion. Heart: The heart is moderately enlarged. No pericardial thickening or effusion. There is mild atherosclerotic calcification of the coronary arteries. Suggestion of asymmetric left ventricular hypertrophy. Diaphragm: There is stable elevation of the left hemidiaphragm. Liver: Ill-defined hypodense lesions throughout the liver, the largest identified in the right hepatic lobe measuring 1.4 cm are essentially stable. Other smaller hypodense lesions are seen in the left hepatic lobe on image 80 series 5 and the left hepatic lobe on image 75 series 5. Lymph nodes: Stable mediastinal adenopathy is present. For example, a 1.7 cm right paratracheal lymph node on image 26 series 5 is stable. Another example, a 2 cm subcarinal lymph node on image 47 series 5 is also stable. This may be related to reactive or infiltrative adenopathy from known prostate carcinoma. Bones/joints: No acute skeletal pathology. Severe multilevel degenerative changes of the spine, as manifested by multilevel anterior osteophytes and multilevel decrease in intervertebral disc space. Soft tissues: Unremarkable. Other findings: No acute findings in the visualized upper abdominal organs otherwise appreciated. IMPRESSION: New left lower lobe airspace consolidation favoring infectious pneumonia in the appropriate clinical setting. Otherwise stable examination, detailed above. Dictated and Authenticated by: Karsten Ramírez MD. Ordering:DC Hunt MD
[2019-01-08 18:01] LABS: Troponin I < 0.05 ng/mL (0.00-0.06)
[2019-01-08] MEDS: Cefpodoxime 200 MG TAB PO (18:40)
== END 2019-01-08 18:47 | disposition home or self-care (01) ==
PROVIDERS: Student in an Organized Health Care Education/Training Program; Emergency Provider Emergency Medicine; PCP Nurse Practitioner
DX: R06.00 Dyspnea, unspecified (principal); E87.6 Hypokalemia; E83.42 Hypomagnesemia; J18.9 Pneumonia, unspecified organism; C61 Malignant neoplasm of prostate; I10 Essential (primary) hypertension; Z79.899 Other long term (current) drug therapy
CPT/HCPCS: 36415; 71275; 80053; 93005; 96365; 96366; 96368; 99285; 83735; 83880; 84484; 85025; 85379; 85610; 85730; 93010; J3480; J3490

== ENCOUNTER 2019-02-06 02:07 | Outpatient (CLI) | payer MEDICARE, SELFPAY ==
[2019-02-06 10:17] LABS: Abs Immature Grans 0.02 k/cumm (0.0-0.09); Absolute Basophil Count 0.05 k/cumm (0.0-0.2); Absolute Eosinophil Count 0.23 k/cumm (0.0-0.7); Absolute Lymphocyte Count 2.08 k/cumm (1.2-3.4); Absolute Monocyte Count 0.86 k/cumm (0.11-0.7); Absolute Neutrophil Count 5.06 k/cumm (1.2-6.7); Basophils % 0.6; Eosinophils % 2.8; HCT 38.2 % (40.0-50.0); HGB 13.3 g/dL (13.5-17.5); Immature Grans % 0.2; Lymphocytes % 25.1; Mean Corp. HGB Concentration 34.8 g/dL (32.0-36.0); Mean Corpuscular Hemoglobin 31.7 pg (27.0-33.0); Mean Platelet Volume 8.5 fL (8.0-11.0); Monocytes % 10.4; Neutrophils % 60.9; Platelet Count 373 x1000/uL (130-400)
[2019-02-06 11:04] LABS: ALT 25 U/L (16-63); AST 27 U/L (15-37); Albumin 3.6 g/dL (3.4-5.0); Alkaline Phosphatase 82 U/L (46-116); Anion Gap 9.1 mmol/L (3-11); BUN 14 mg/dL (7-18); Bilirubin, Total 0.8 mg/dL (0.2-1.0); CO2 30.9 mmol/L (21.0-32.0); CREATININE 0.87 mg/dL (0.70-1.30); Calcium 9.5 mg/dL (8.5-10.1); Chloride 99 mmol/L (98-107); Glucose 122 mg/dL (70-100); Potassium 4.1 mmol/L (3.5-5.1); Sodium 139 mmol/L (136-145); Total Protein 6.9 g/dL (6.4-8.2)
[2019-02-07 10:19] LABS: PSA, Diagnostic 0.8 ng/ml (0-6.5)
== END 2019-02-06 02:27 ==
PROVIDERS: PCP Family Medicine; Visit Provider Internal Medicine Hematology & Oncology
DX: C61 Malignant neoplasm of prostate (principal); C79.51 Secondary malignant neoplasm of bone
CPT/HCPCS: 36415; 80053; 84153; 85025

== ENCOUNTER 2019-02-15 01:06 | Outpatient (CLI) | payer MEDICARE, SELFPAY ==
--- NOTE | 2019-02-15 14:15 | DI.CT_ITS ---
EXAM: CT CHEST W CLINICAL HISTORY: PROSTATE CANCER C61, RESTAGING TECHNIQUE: CT examination of the chest was performed with a bolus infusion of 70 cc of Omnipaque 350 . COMPARISON: CT CHEST/ABD/PEL W from 12/05/2018 CT CHEST PE CTA from 01/08/2019 FINDINGS: Current examination is compared with previous examination of 01/08/2019. Previously noted left lower lobe airspace consolidation appears decreased on today's examination. No new consolidation seen. N onspecific pretracheal left hilar and subcarinal nodes grossly unchanged or slightly smaller in dede rison with the prior study. No new adenopathy. Multiple small focal low-attenuation hepatic lesions probably unchanged from previous studies including December 05. Right renal cyst again noted. Adre nals unremarkable. Pancreas unremarkable. Spleen normal in appearance. IMPRESSION: Interval decrease in degree of left lower lobe consolidation. No gross interval change in nonspecifi c mediastinal adenopathy, presumably neoplastic.
[2019-02-15] MEDS: Omnipaque 350 MG/ML 100 ML BTL IJ (14:33)
== END 2019-02-15 01:26 ==
PROVIDERS: PCP Family Medicine; Visit Provider Internal Medicine Hematology & Oncology
DX: C61 Malignant neoplasm of prostate (principal); Z12.89 Encounter for screening for malignant neoplasm of other sites; J98.4 Other disorders of lung; K76.89 Other specified diseases of liver
CPT/HCPCS: 71260; J3490

== ENCOUNTER 2019-02-20 02:37 | Outpatient (CLI) | payer MEDICARE, SELFPAY ==
[2019-02-20 10:30] LABS: Abs Immature Grans 0.01 k/cumm (0.0-0.09); Absolute Basophil Count 0.04 k/cumm (0.0-0.2); Absolute Eosinophil Count 0.22 k/cumm (0.0-0.7); Absolute Lymphocyte Count 1.87 k/cumm (1.2-3.4); Absolute Monocyte Count 0.66 k/cumm (0.11-0.7); Absolute Neutrophil Count 3.54 k/cumm (1.2-6.7); Basophils % 0.6; Eosinophils % 3.5; HCT 36.2 % (40.0-50.0); HGB 12.6 g/dL (13.5-17.5); Immature Grans % 0.2; Lymphocytes % 29.5; Mean Corp. HGB Concentration 34.8 g/dL (32.0-36.0); Mean Corpuscular Hemoglobin 31.5 pg (27.0-33.0); Mean Corpuscular Volume 90.5 fL (80-95); Mean Platelet Volume 8.6 fL (8.0-11.0); Monocytes % 10.4; Neutrophils % 55.8; Platelet Count 351 x1000/uL (130-400); RBC Distribution Width 11.9 % (11.8-14.1); White Blood Cell Count 6.34 k/cumm (4.4-10.8)
[2019-02-20 11:09] LABS: ALT 25 U/L (16-63); AST 25 U/L (15-37); Albumin 3.4 g/dL (3.4-5.0); Alkaline Phosphatase 76 U/L (46-116); Anion Gap 10.5 mmol/L (3-11); BUN 12 mg/dL (7-18); Bilirubin, Total 0.6 mg/dL (0.2-1.0); CO2 27.5 mmol/L (21.0-32.0); CREATININE 0.81 mg/dL (0.70-1.30); Calcium 9.1 mg/dL (8.5-10.1); Chloride 102 mmol/L (98-107); Glucose 116 mg/dL (70-100); Potassium 3.6 mmol/L (3.5-5.1); Sodium 140 mmol/L (136-145); Total Protein 6.4 g/dL (6.4-8.2)
[2019-02-21 10:25] LABS: PSA, Diagnostic 0.7 ng/ml (0-6.5)
== END 2019-02-20 02:57 ==
PROVIDERS: PCP Family Medicine; Visit Provider Internal Medicine Hematology & Oncology
DX: C61 Malignant neoplasm of prostate (principal)
CPT/HCPCS: 36415; 80053; 84153; 85025

== ENCOUNTER 2019-03-13 01:53 | Outpatient (CLI) | payer MEDICARE, SELFPAY ==
[2019-03-13 09:40] LABS: Abs Immature Grans 0.02 k/cumm (0.0-0.09); Absolute Basophil Count 0.04 k/cumm (0.0-0.2); Absolute Eosinophil Count 0.18 k/cumm (0.0-0.7); Absolute Lymphocyte Count 1.96 k/cumm (1.2-3.4); Absolute Monocyte Count 0.68 k/cumm (0.11-0.7); Absolute Neutrophil Count 3.74 k/cumm (1.2-6.7); Basophils % 0.6; Eosinophils % 2.7; HCT 35.8 % (40.0-50.0); HGB 12.7 g/dL (13.5-17.5); Immature Grans % 0.3; Lymphocytes % 29.6; Mean Corp. HGB Concentration 35.5 g/dL (32.0-36.0); Mean Corpuscular Hemoglobin 31.7 pg (27.0-33.0); Mean Corpuscular Volume 89.3 fL (80-95); Mean Platelet Volume 8.5 fL (8.0-11.0); Monocytes % 10.3; Neutrophils % 56.5; Platelet Count 331 x1000/uL (130-400); RBC 4.01 m/cumm (4.50-6.00); RBC Distribution Width 12.1 % (11.8-14.1); White Blood Cell Count 6.62 k/cumm (4.4-10.8)
[2019-03-13 10:20] LABS: ALT 27 U/L (16-63); AST 26 U/L (15-37); Albumin 3.5 g/dL (3.4-5.0); Alkaline Phosphatase 90 U/L (46-116); Anion Gap 9.5 mmol/L (3-11); BUN 14 mg/dL (7-18); Bilirubin, Total 0.6 mg/dL (0.2-1.0); CO2 27.5 mmol/L (21.0-32.0); CREATININE 0.77 mg/dL (0.70-1.30); Calcium 9.4 mg/dL (8.5-10.1); Chloride 101 mmol/L (98-107); Glucose 110 mg/dL (70-100); Sodium 138 mmol/L (136-145); Total Protein 6.6 g/dL (6.4-8.2)
[2019-03-14 15:10] LABS: PSA, Diagnostic 0.9 ng/mL (0.0-6.5)
== END 2019-03-13 02:13 ==
PROVIDERS: PCP Family Medicine; Visit Provider Internal Medicine Hematology & Oncology
DX: C61 Malignant neoplasm of prostate (principal)
CPT/HCPCS: 36415; 80053; 84153; 85025

== ENCOUNTER 2019-04-10 03:03 | Outpatient (CLI) | payer MEDICARE, SELFPAY ==
[2019-04-10 09:50] LABS: Abs Immature Grans 0.02 k/cumm (0.0-0.09); Absolute Basophil Count 0.04 k/cumm (0.0-0.2); Absolute Eosinophil Count 0.24 k/cumm (0.0-0.7); Absolute Lymphocyte Count 1.95 k/cumm (1.2-3.4); Absolute Monocyte Count 0.74 k/cumm (0.11-0.7); Absolute Neutrophil Count 3.32 k/cumm (1.2-6.7); Basophils % 0.6; Eosinophils % 3.8; HCT 35.8 % (40.0-50.0); HGB 12.6 g/dL (13.5-17.5); Immature Grans % 0.3; Lymphocytes % 30.9; Mean Corp. HGB Concentration 35.2 g/dL (32.0-36.0); Mean Corpuscular Hemoglobin 31.3 pg (27.0-33.0); Mean Corpuscular Volume 88.8 fL (80-95); Mean Platelet Volume 8.7 fL (8.0-11.0); Monocytes % 11.7; Neutrophils % 52.7; Platelet Count 329 x1000/uL (130-400); RBC 4.03 m/cumm (4.50-6.00); RBC Distribution Width 12.5 % (11.8-14.1); White Blood Cell Count 6.31 k/cumm (4.4-10.8)
[2019-04-10 11:19] LABS: ALT 24 U/L (16-63); AST 27 U/L (15-37); Albumin 3.6 g/dL (3.4-5.0); Alkaline Phosphatase 79 U/L (46-116); Anion Gap 9.3 mmol/L (3-11); BUN 17 mg/dL (7-18); Bilirubin, Total 0.6 mg/dL (0.2-1.0); CO2 26.7 mmol/L (21.0-32.0); CREATININE 0.71 mg/dL (0.70-1.30); Calcium 9.6 mg/dL (8.5-10.1); Chloride 103 mmol/L (98-107); Glucose 137 mg/dL (74-106); Potassium 4.1 mmol/L (3.5-5.1); Sodium 139 mmol/L (136-145); Total Protein 6.7 g/dL (6.4-8.2)
[2019-04-11 13:09] LABS: PSA, Ultrasensitive 1.3 ng/mL (<= 7.2)
== END 2019-04-10 03:23 ==
PROVIDERS: PCP Family Medicine; Visit Provider Internal Medicine Hematology & Oncology
DX: C61 Malignant neoplasm of prostate (principal)
CPT/HCPCS: 36415; 80053; 84153; 85025

== ENCOUNTER 2019-05-08 02:31 | Outpatient (CLI) | payer MEDICARE, SELFPAY ==
[2019-05-08 09:52] LABS: Abs Immature Grans 0.02 k/cumm (0.0-0.09); Absolute Basophil Count 0.03 k/cumm (0.0-0.2); Absolute Eosinophil Count 0.24 k/cumm (0.0-0.7); Absolute Monocyte Count 0.61 k/cumm (0.11-0.7); Absolute Neutrophil Count 2.77 k/cumm (1.2-6.7); Basophils % 0.5; Eosinophils % 4.3; HCT 36.6 % (40.0-50.0); Immature Grans % 0.4 %; Lymphocytes % 34.1; Mean Corp. HGB Concentration 35.5 g/dL (32.0-36.0); Mean Corpuscular Hemoglobin 31.7 pg (27.0-33.0); Mean Corpuscular Volume 89.3 fL (80-95); Mean Platelet Volume 8.5 fL (8.0-11.0); Neutrophils % 49.7; Platelet Count 301 x1000/uL (130-400); RBC Distribution Width 12.8 % (11.8-14.1); White Blood Cell Count 5.57 k/cumm (4.4-10.8)
[2019-05-08 11:18] LABS: ALT 18 U/L (16-63); AST 24 U/L (15-37); Albumin 3.6 g/dL (3.4-5.0); Alkaline Phosphatase 81 U/L (46-116); BUN 12 mg/dL (7-18); Bilirubin, Total 0.9 mg/dL (0.2-1.0); CREATININE 0.85 mg/dL (0.70-1.30); Calcium 9.5 mg/dL (8.5-10.1); Chloride 101 mmol/L (98-107); Glucose 126 mg/dL (74-106); Potassium 4.3 mmol/L (3.5-5.1); Sodium 139 mmol/L (136-145); Total Protein 6.7 g/dL (6.4-8.2)
[2019-05-09 19:10] LABS: PSA, Ultrasensitive 2.1 ng/mL (<= 7.2)
== END 2019-05-08 02:51 ==
PROVIDERS: PCP Family Medicine; Visit Provider Internal Medicine Hematology & Oncology
DX: C61 Malignant neoplasm of prostate (principal)
CPT/HCPCS: 36415; 80053; 84153; 85025

== ENCOUNTER 2019-05-09 00:34 | Outpatient (CLI) | payer MEDICARE, SELFPAY ==
[2019-05-09] MEDS: Omnipaque 350 MG/ML 100 ML BTL IJ (14:58)
--- NOTE | 2019-05-09 15:02 | DI.CT_ITS ---
EXAM: CT CHEST W CLINICAL HISTORY: PROSTATE CANCER C61 WITH METASTASES TO MEDIASTINAL LYMPH NODES, ON TREATMENT, REST AGING TECHNIQUE: Imaging Protocol: Axial computed tomography images with coronal and sagittal reformatted images were created and reviewed CONTRAST MATERIAL: Intravenous: Omnipaque 350 Contrast volume:70 mL contrast route:IV - COMPARISON: CT CHEST W from 02/15/2019 FINDINGS: Tracheobronchial tree: Patent where visualized. Mediastinum and Raven: The subcarinal adenopathy now measures 4.1 cm transverse x 2.7 cm craniocaudad. This compares to 4 x 2.7 centimeters on the prior examination. There is a right paratracheal lymph node, which now measures 1.7 x 1.3 cm. Previously this measured 2.1 x 1.3 cm. There is a right par atracheal lymph node, which measures 1.1 cm and is unchanged. Pulmonary parenchyma: The area of nodularity in the left lower lobe adjacent to the major fissure is stable. There is a stable area of consolidation in the left lower lobe. No new pulmonary nodules or infiltrates are present. Pleura: No effusion or pneumothorax. Heart: Mild cardiomegaly. Mild coronary artery calcification. No pericardial effusion. Aorta: Atherosclerosis. Upper abdomen: Stable low-attenuation lesions in the liver. Stable right renal cyst. Lymph nodes: Please see above. Bones: DISH. IMPRESSION: 1. Stable or slight decrease in size of mediastinal lymph nodes. 2. Stable left lower lobe nodularity and consolidation. DATA REPOSITORY: All CT scans at this facility are submitted to the National Radiology Data Registry (NRDR) Dose Index Registry (DIR) with the [employer] (ACR). RADIATION OPTIMIZATION: All CT scans at this facility use at least one of these dose optimization te chniques: automated exposure control; mA and/or kV adjustment per patient size (includes targeted exa ms where dose is matched to clinical indication); or iterative reconstruction.
== END 2019-05-09 00:54 ==
PROVIDERS: PCP Family Medicine; Visit Provider Internal Medicine Hematology & Oncology
DX: C61 Malignant neoplasm of prostate (principal); R91.1 Solitary pulmonary nodule; R59.0 Localized enlarged lymph nodes; I51.7 Cardiomegaly; K76.89 Other specified diseases of liver
CPT/HCPCS: 71260; J3490

== ENCOUNTER 2019-06-19 02:23 | Outpatient (CLI) | payer MEDICARE, SELFPAY ==
[2019-06-19 10:06] LABS: Abs Immature Grans 0.01 k/cumm (0.0-0.09); Absolute Basophil Count 0.03 k/cumm (0.0-0.2); Absolute Lymphocyte Count 2.19 k/cumm (1.2-3.4); Absolute Monocyte Count 0.61 k/cumm (0.11-0.7); Absolute Neutrophil Count 2.67 k/cumm (1.2-6.7); Basophils % 0.5; Eosinophils % 3.5; HCT 38.9 % (40.0-50.0); HGB 13.9 g/dL (13.5-17.5); Immature Grans % 0.2 %; Lymphocytes % 38.4; Mean Corp. HGB Concentration 35.7 g/dL (32.0-36.0); Mean Corpuscular Hemoglobin 32.2 pg (27.0-33.0); Mean Platelet Volume 8.5 fL (8.0-11.0); Monocytes % 10.7; Neutrophils % 46.7; Platelet Count 328 x1000/uL (130-400); RBC 4.32 m/cumm (4.50-6.00); RBC Distribution Width 12.6 % (11.8-14.1); White Blood Cell Count 5.71 k/cumm (4.4-10.8)
[2019-06-19 11:17] LABS: ALT 20 U/L (16-63); AST 26 U/L (15-37); Albumin 3.6 g/dL (3.4-5.0); Alkaline Phosphatase 84 U/L (46-116); Anion Gap 11.6 mmol/L (3-11); BUN 16 mg/dL (7-18); Bilirubin, Total 0.7 mg/dL (0.2-1.0); CO2 26.4 mmol/L (21.0-32.0); CREATININE 0.76 mg/dL (0.70-1.30); Calcium 9.4 mg/dL (8.5-10.1); Chloride 101 mmol/L (98-107); Glucose 121 mg/dL (74-106); Potassium 4.2 mmol/L (3.5-5.1); Sodium 139 mmol/L (136-145); Total Protein 6.7 g/dL (6.4-8.2)
[2019-06-20 12:28] LABS: PSA, Ultrasensitive 4.5 ng/mL (<= 7.2)
== END 2019-06-19 02:43 ==
PROVIDERS: PCP Family Medicine; Visit Provider Internal Medicine Hematology & Oncology
DX: C61 Malignant neoplasm of prostate (principal)
CPT/HCPCS: 36415; 80053; 84153; 85025

== ENCOUNTER 2019-07-04 02:03 | Outpatient (CLI) | payer MEDICARE, SELFPAY ==
--- NOTE | 2019-07-04 | DI.CT_ITS ---
EXAM: CT CHEST/ABD/PEL W CLINICAL HISTORY: PROSTATE CA WITH MEDIASTINAL METASTASES, ON HORMONE THERAPY. TECHNIQUE: Imaging Protocol: Axial computed tomography images with coronal and sagittal reformatted images were created and reviewed CONTRAST MATERIAL: Intravenous: Omnipaque 350 Contrast volume:100 ml Oral: yes COMPARISON: CT CHEST/ABD/PEL W from 12/05/2018 CT CHEST PE CTA from 01/08/2019 CT CHEST W from 05/09/2019 NM BONE SCAN WHOLE BODY GRP from 07/04/2019 FINDINGS: CHEST: Thyroid: Unremarkable Tracheobronchial tree: Patent where visualized. Mediastinum and Raven: There has been interval increase in size of mediastinal and left hilar adenopat hy. The right paratracheal node now measures 2.3 cm in diameter. A subcarinal node measures 5.2 by 2. 9 cm in transverse and AP dimensions. Other smaller lymph nodes have also increased in size. Pulmonary parenchyma: There is increased size of previously noted left lower lobe nodule, now measuri ng 2 cm in diameter. There are increased densities in the left lower lobe compared with the previous exam. The findings could represent interstitial metastases. . Pleura: No effusion or pneumothorax. Aorta: Mild dilatation of the ascending aorta. Pulmonary arteries are well opacified and no emboli ar e seen. Heart: Enlarged, unchanged. Bones: Diffuse flowing osteophytes. The bones appear osteoporotic. ABDOMEN: Liver: Multiple small low-density lesions in the liver appear stable.. Gallbladder and biliary tract: No radiodense calculus or dilation. Pancreas: Normal density, no abnormal calcifications or inflammatory process. Spleen: Normal. Kidneys: Normal size, contour and axis. No radiodense stones or obstructive uropathy. No masses seen. Right renal cysts. Retroaortic left renal vein. Adrenal glands: No masses seen. Aorta: Abdominal portion non-dilated. Lymph nodes: Within normal limits. PELVIS: Bladder: Symmetric distention, no gross wall thickening. The patient is status post prostatectomy. Bowel: No obstruction or bowel wall thickening. Peritoneal cavity: No ascites, collection or mesenteric inflammatory response. Bones: There is hardware in the lower lumbar spine creating artifact. Prominent disc osteophytes are seen. Reproductive organs: Within normal limits. IMPRESSION: Interval increase in size of adenopathy in the chest. Interval increase in size of left lower lobe no dule and left lower lobe pulmonary densities. Stable low-density liver lesions, most of which appear to represent cysts. DATA REPOSITORY: All CT scans at this facility are submitted to the National Radiology Data Registry (NRDR) Dose Index Registry (DIR) with the [employer] (ACR). RADIATION OPTIMIZATION: All CT scans at this facility use at least one of these dose optimization te chniques: automated exposure control; mA and/or kV adjustment per patient size (includes targeted exa ms where dose is matched to clinical indication); or iterative reconstruction.
--- NOTE | 2019-07-04 08:00 | DI.NM_ITS ---
EXAM: NM BONE SCAN WHOLE BODY GRP CLINICAL HISTORY: PROSTATE CA, RISING PSA, RESTAGING EXAM. TECHNIQUE: Injected Dose: 25 mCi Tc-99m MDP Delayed Images: 2-3 hours. COMPARISON: WHOLE BODY BONE SCAN from 12/05/2018 CT CHEST/ABD/PEL W from 07/04/2019 FINDINGS: Again noted is increased activity in the lower cervical spine, which may be secondary to previous dat nikki. There are small foci of mildly increased activity in the thoracic and lumbar spine, which eith er appear unchanged or decreased in intensity when compared with the previous exam. Previously noted increased activity in an anterior right rib is no longer seen. Increased activity in the AC joints and knees are consistent with degenerative changes. Bilateral renal excretion is identified. . IMPRESSION: Small nonspecific foci of increased activity in the thoracic and lumbar spine either stable or decrea sed in intensity. No new areas of abnormal bony labeling are seen. DATA REPOSITORY:
[2019-07-04 08:30] LABS: ALT 16 U/L (16-63); AST 29 U/L (15-37); Albumin 3.5 g/dL (3.4-5.0); Alkaline Phosphatase 74 U/L (46-116); BUN 17 mg/dL (7-18); Bilirubin, Total 0.6 mg/dL (0.2-1.0); CREATININE 0.93 mg/dL (0.70-1.30); Calcium 8.6 mg/dL (8.5-10.1); Chloride 102 mmol/L (98-107); Glucose 143 mg/dL (74-106); Potassium 3.3 mmol/L (3.5-5.1); Sodium 139 mmol/L (136-145)
[2019-07-04 08:36] LABS: Abs Immature Grans 0.02 k/cumm (0.0-0.09); Absolute Basophil Count 0.03 k/cumm (0.0-0.2); Absolute Eosinophil Count 0.22 k/cumm (0.0-0.7); Absolute Lymphocyte Count 1.95 k/cumm (1.2-3.4); Absolute Monocyte Count 0.56 k/cumm (0.11-0.7); Absolute Neutrophil Count 2.85 k/cumm (1.2-6.7); Basophils % 0.5; Eosinophils % 3.9; HCT 37.5 % (40.0-50.0); HGB 13.6 g/dL (13.5-17.5); Immature Grans % 0.4 %; Lymphocytes % 34.6; Mean Corp. HGB Concentration 36.3 g/dL (32.0-36.0); Mean Corpuscular Hemoglobin 32.4 pg (27.0-33.0); Mean Corpuscular Volume 89.3 fL (80-95); Mean Platelet Volume 8.4 fL (8.0-11.0); Monocytes % 9.9; Neutrophils % 50.7; Platelet Count 303 x1000/uL (130-400); RBC Distribution Width 12.7 % (11.8-14.1); White Blood Cell Count 5.63 k/cumm (4.4-10.8)
[2019-07-04] MEDS: Normal Saline - Diluent 50 ML VIAL IV (09:42)
[2019-07-04] MEDS: Omnipaque 350 MG/ML 100 ML BTL IJ (09:43)
[2019-07-04] MEDS: Normal Saline Flush 10 ML SYR IVP (10:13)
[2019-07-05 11:20] LABS: PSA, Ultrasensitive 6.4 ng/mL (<= 7.2)
== END 2019-07-04 02:23 ==
PROVIDERS: PCP Family Medicine; Visit Provider Internal Medicine Hematology & Oncology
DX: C61 Malignant neoplasm of prostate (principal); C79.51 Secondary malignant neoplasm of bone; R97.20 Elevated prostate specific antigen [PSA]; R59.0 Localized enlarged lymph nodes; R91.8 Other nonspecific abnormal finding of lung field; I51.7 Cardiomegaly; K76.89 Other specified diseases of liver; Z90.79 Acquired absence of other genital organ(s)
CPT/HCPCS: 74177; 78306; 80053; 84153; 71260; 85025; J3490

== ENCOUNTER 2019-07-24 04:35 | Outpatient (CLI) | payer MEDICARE, SELFPAY ==
[2019-07-24 08:51] LABS: Absolute Basophil Count 0.04 k/cumm (0.0-0.2); Absolute Lymphocyte Count 2.29 k/cumm (1.2-3.4); Absolute Monocyte Count 1.27 k/cumm (0.11-0.7); Absolute Neutrophil Count 6.35 k/cumm (1.2-6.7); Basophils % 0.4; HCT 37.7 % (40.0-50.0); HGB 13.4 g/dL (13.5-17.5); Lymphocytes % 22.6; Mean Corp. HGB Concentration 35.5 g/dL (32.0-36.0); Mean Corpuscular Hemoglobin 32.2 pg (27.0-33.0); Mean Corpuscular Volume 90.6 fL (80-95); Mean Platelet Volume 8.2 fL (8.0-11.0); Monocytes % 12.5; Neutrophils % 62.5; Platelet Count 378 x1000/uL (130-400); RBC 4.16 m/cumm (4.50-6.00); RBC Distribution Width 12.7 % (11.8-14.1); White Blood Cell Count 10.15 k/cumm (4.4-10.8)
[2019-07-24 08:52] LABS: ALT 25 U/L (16-63); AST 25 U/L (15-37); Albumin 3.4 g/dL (3.4-5.0); Alkaline Phosphatase 70 U/L (46-116); Anion Gap 9.1 mmol/L (3-11); BUN 14 mg/dL (7-18); Bilirubin, Total 0.4 mg/dL (0.2-1.0); CO2 25.9 mmol/L (21.0-32.0); CREATININE 0.77 mg/dL (0.70-1.30); Calcium 8.9 mg/dL (8.5-10.1); Chloride 104 mmol/L (98-107); Glucose 118 mg/dL (74-106); Potassium 3.7 mmol/L (3.5-5.1); Sodium 139 mmol/L (136-145); Total Protein 6.9 g/dL (6.4-8.2)
[2019-07-25 13:14] LABS: PSA, Ultrasensitive 10.3 ng/mL (<= 7.2)
== END 2019-07-24 04:55 ==
PROVIDERS: PCP Family Medicine; Visit Provider Internal Medicine Hematology & Oncology
DX: C61 Malignant neoplasm of prostate (principal)
CPT/HCPCS: 36415; 80053; 84153; 85025

== ENCOUNTER 2019-08-17 03:43 | Outpatient (RCR) | payer MEDICARE, SELFPAY ==
[2019-08-17] MEDS: Normal Saline Flush 10 ML SYR IVP (10:37)
[2019-08-17 10:44] LABS: Abs Immature Grans 0.15 k/cumm (0.0-0.09); Absolute Basophil Count 0.03 k/cumm (0.0-0.2); Absolute Eosinophil Count 0.01 k/cumm (0.0-0.7); Basophils % 0.2; Eosinophils % 0.1; HCT 36.5 % (40.0-50.0); HGB 12.6 g/dL (13.5-17.5); Immature Grans % 1.2 %; Mean Corp. HGB Concentration 34.5 g/dL (32.0-36.0); Mean Corpuscular Hemoglobin 31.9 pg (27.0-33.0); Mean Corpuscular Volume 92.4 fL (80-95); Neutrophils % 70.5; Platelet Count 313 x1000/uL (130-400); RBC 3.95 m/cumm (4.50-6.00); RBC Distribution Width 13.1 % (11.8-14.1); White Blood Cell Count 12.98 k/cumm (4.4-10.8)
[2019-08-17 10:45] LABS: Absolute Lymphocyte Count 2.34 k/cumm (1.2-3.4); Absolute Neutrophil Count 9.15 k/cumm (1.2-6.7)
[2019-08-17 10:58] LABS: ALT 24 U/L (16-63); AST 20 U/L (15-37); Albumin 3.3 g/dL (3.4-5.0); Alkaline Phosphatase 61 U/L (46-116); Anion Gap 7.5 mmol/L (3-11); BUN 16 mg/dL (7-18); Bilirubin, Total 0.5 mg/dL (0.2-1.0); CO2 27.5 mmol/L (21.0-32.0); CREATININE 0.76 mg/dL (0.70-1.30); Calcium 8.7 mg/dL (8.5-10.1); Chloride 101 mmol/L (98-107); Glucose 107 mg/dL (74-106); Potassium 3.7 mmol/L (3.5-5.1); Sodium 136 mmol/L (136-145); Total Protein 6.8 g/dL (6.4-8.2)
[2019-08-20 10:58] LABS: PSA, Ultrasensitive 8.8 ng/mL (<= 7.2)
== END 2019-08-23 23:59 | disposition home or self-care (01) ==
LOC: INF 03:43
PROVIDERS: PCP Family Medicine; Visit Provider Internal Medicine Hematology & Oncology
DX: C61 Malignant neoplasm of prostate (principal); Z45.2 Encounter for adjustment and management of vascular access device
CPT/HCPCS: 36591; 80053; 84153; 85025

== ENCOUNTER 2019-08-29 01:27 | Outpatient (CLI) | payer MEDICARE, SELFPAY ==
--- NOTE | 2019-08-29 | DI.CT_ITS ---
EXAM: CT CHEST W CLINICAL HISTORY: METASTATIC PROSTATE CA,C61,C77.1, MEDIASTINAL ADENOPATHY TECHNIQUE: Imaging Protocol: Axial computed tomography images with coronal and sagittal reformatted images were created and reviewed CONTRAST MATERIAL: Intravenous: Omnipaque 350 Contrast volume:70 ml. COMPARISON: ABD PELVIS WITH CONTRAST from 03/09/2011 ABD PELVIS WITH CONTRAST from 07/13/2011 CT CHEST/ABD/PEL W from 07/04/2019 NM BONE SCAN WHOLE BODY GRP from 07/04/2019 FINDINGS: Tracheobronchial tree: Patent where visualized. Pulmonary parenchyma: There has been interval decrease in the left lower lobe nodule, now measuring 1.5 cm. There is been some improvement in the left lower lobe areas of increased density. No new no dules are identified. Pleura: No effusion or pneumothorax. Heart: The left atrium is dilated. Mild coronary artery calcifications are seen. Aorta: Thoracic aorta non-dilated. Lymph nodes: There has been significant interval decrease in size of mediastinal and hilar adenopathy . The right paratracheal lymph node measures 13 millimeters in greatest dimension. The subcarinal a denopathy measures 3.6 x 1.6 cm compared with 5.2 x 2.9 cm on the previous exam.. Bones: Flowing osteophytes and and prominent lucency is again present in the mid to lower thoracic sp ine.. Tubes, Catheters, and Lines: Port over the right pectoral muscle with the tip near the junction of th e SVC with right atrium. Upper abdomen: There are stable low-density lesions in the liver.. IMPRESSION: Interval decrease in size left lower lobe nodule and adjacent interstitial changes. Interval decreas e in size of mediastinal adenopathy. RADIATION DOSE DELIVERED: Total DLP DATA REPOSITORY: All CT scans at this facility are submitted to the National Radiology Data Registry (NRDR) Dose Index Registry (DIR) with the [employer] (ACR). RADIATION OPTIMIZATION: All CT scans at this facility use at least one of these dose optimization te chniques: automated exposure control; mA and/or kV adjustment per patient size (includes targeted exa ms where dose is matched to clinical indication); or iterative reconstruction.
[2019-08-29] MEDS: Normal Saline - Diluent 50 ML VIAL IV (13:25)
[2019-08-29] MEDS: Omnipaque 350 MG/ML 100 ML BTL 70 ML IJ (13:26)
[2019-08-29] MEDS: Normal Saline Flush 10 ML SYR IVP (13:28)
== END 2019-08-29 01:47 ==
PROVIDERS: PCP Family Medicine; Visit Provider Internal Medicine Hematology & Oncology
DX: C61 Malignant neoplasm of prostate (principal); C77.1 Secondary and unspecified malignant neoplasm of intrathoracic lymph nodes; K76.89 Other specified diseases of liver; R91.1 Solitary pulmonary nodule
CPT/HCPCS: 96523; 71260; J3490

== ENCOUNTER 2019-09-07 10:25 | Outpatient (RCR) | payer MEDICARE, SELFPAY ==
[2019-08-29] MEDS: Heparin 500 UNITS/5 ML SYRINGE IV (13:03)
[2019-08-29] MEDS: Normal Saline Flush 10 ML SYR IVP (13:03)
[2019-09-07] MEDS: Normal Saline Flush 10 ML SYR IVP (10:35)
[2019-09-07 10:57] LABS: Abs Immature Grans 0.11 k/cumm (0.0-0.09); Absolute Lymphocyte Count 2.03 k/cumm (1.2-3.4); Absolute Monocyte Count 1.08 k/cumm (0.11-0.7); Basophils % 0.1; HGB 12.4 g/dL (13.5-17.5); Immature Grans % 0.8 %; Lymphocytes % 14.8; Mean Corp. HGB Concentration 33.5 g/dL (32.0-36.0); Mean Corpuscular Hemoglobin 31.3 pg (27.0-33.0); Mean Corpuscular Volume 93.4 fL (80-95); Mean Platelet Volume 8.4 fL (8.0-11.0); Monocytes % 7.9; Neutrophils % 76.4; Platelet Count 319 x1000/uL (130-400); RBC 3.96 m/cumm (4.50-6.00); RBC Distribution Width 13.9 % (11.8-14.1); White Blood Cell Count 13.69 k/cumm (4.4-10.8)
[2019-09-07 10:59] LABS: Absolute Basophil Count 0.01 k/cumm (0.0-0.2); Absolute Neutrophil Count 10.46 k/cumm (1.2-6.7)
[2019-09-07 11:00] LABS: ALT 29 U/L (16-63); AST 20 U/L (15-37); Albumin 3.4 g/dL (3.4-5.0); Alkaline Phosphatase 61 U/L (46-116); Anion Gap 6.2 mmol/L (3-11); BUN 23 mg/dL (7-18); Bilirubin, Total 0.5 mg/dL (0.2-1.0); CO2 28.8 mmol/L (21.0-32.0); Calcium 8.9 mg/dL (8.5-10.1); Chloride 100 mmol/L (98-107); Glucose 99 mg/dL (74-106); Potassium 3.9 mmol/L (3.5-5.1); Sodium 135 mmol/L (136-145); Total Protein 6.9 g/dL (6.4-8.2)
== END 2019-09-23 23:59 | disposition home or self-care (01) ==
LOC: INF 10:25
PROVIDERS: PCP Family Medicine; Visit Provider Internal Medicine Hematology & Oncology
DX: C61 Malignant neoplasm of prostate (principal); Z45.2 Encounter for adjustment and management of vascular access device
CPT/HCPCS: 36591; 80053; 84153; 96523; 85025

== ENCOUNTER 2019-10-19 10:00 | Outpatient (RCR) | payer MEDICARE, SELFPAY ==
[2019-09-28] MEDS: Normal Saline Flush 10 ML SYR IVP (10:37)
[2019-09-28 10:43] LABS: Abs Immature Grans 0.06 k/cumm (0.0-0.09); Absolute Basophil Count 0.02 k/cumm (0.0-0.2); Absolute Eosinophil Count 0.01 k/cumm (0.0-0.7); Absolute Lymphocyte Count 1.45 k/cumm (1.2-3.4); Absolute Monocyte Count 0.82 k/cumm (0.11-0.7); Absolute Neutrophil Count 6.52 k/cumm (1.2-6.7); Basophils % 0.2; Eosinophils % 0.1; HCT 34.9 % (40.0-50.0); HGB 11.8 g/dL (13.5-17.5); Immature Grans % 0.7 %; Lymphocytes % 16.3; Mean Corp. HGB Concentration 33.8 g/dL (32.0-36.0); Mean Corpuscular Hemoglobin 31.9 pg (27.0-33.0); Mean Corpuscular Volume 94.3 fL (80-95); Monocytes % 9.2; Neutrophils % 73.5; Platelet Count 270 x1000/uL (130-400); RBC Distribution Width 14.5 % (11.8-14.1); White Blood Cell Count 8.88 k/cumm (4.4-10.8)
[2019-09-28 11:06] LABS: ALT 29 U/L (16-63); AST 19 U/L (15-37); Albumin 3.3 g/dL (3.4-5.0); Alkaline Phosphatase 59 U/L (46-116); Anion Gap 7.8 mmol/L (3-11); BUN 18 mg/dL (7-18); Bilirubin, Total 0.5 mg/dL (0.2-1.0); CO2 26.2 mmol/L (21.0-32.0); CREATININE 0.89 mg/dL (0.70-1.30); Calcium 8.6 mg/dL (8.5-10.1); Chloride 102 mmol/L (98-107); Glucose 122 mg/dL (74-106); Potassium 3.9 mmol/L (3.5-5.1); Sodium 136 mmol/L (136-145); Total Protein 6.5 g/dL (6.4-8.2)
[2019-10-01 11:10] LABS: PSA, Diagnostic 3.2 ng/mL (0.0-6.5)
[2019-10-19] MEDS: Normal Saline Flush 10 ML SYR IVP (10:28)
[2019-10-19] MEDS: Heparin 500 UNITS/5 ML SYRINGE IV (10:28)
[2019-10-19 10:31] LABS: Abs Immature Grans 0.11 k/cumm (0.0-0.09); Absolute Basophil Count 0.03 k/cumm (0.0-0.2); Absolute Lymphocyte Count 1.95 k/cumm (1.2-3.4); Absolute Monocyte Count 1.14 k/cumm (0.11-0.7); Basophils % 0.2; HGB 12.8 g/dL (13.5-17.5); Immature Grans % 0.8 %; Lymphocytes % 14.5; Mean Corp. HGB Concentration 34.6 g/dL (32.0-36.0); Mean Corpuscular Hemoglobin 32.2 pg (27.0-33.0); Mean Platelet Volume 8.2 fL (8.0-11.0); Monocytes % 8.5; Platelet Count 342 x1000/uL (130-400); RBC 3.98 m/cumm (4.50-6.00); RBC Distribution Width 14.7 % (11.8-14.1); White Blood Cell Count 13.42 k/cumm (4.4-10.8)
[2019-10-19 10:40] LABS: ALT 30 U/L (16-63); AST 22 U/L (15-37); Albumin 3.5 g/dL (3.4-5.0); Alkaline Phosphatase 61 U/L (46-116); Anion Gap 7.8 mmol/L (3-11); BUN 18 mg/dL (7-18); Bilirubin, Total 0.5 mg/dL (0.2-1.0); CO2 29.2 mmol/L (21.0-32.0); CREATININE 0.88 mg/dL (0.70-1.30); Calcium 9.2 mg/dL (8.5-10.1); Chloride 100 mmol/L (98-107); Glucose 130 mg/dL (74-106); Potassium 3.3 mmol/L (3.5-5.1); Sodium 137 mmol/L (136-145); Total Protein 6.9 g/dL (6.4-8.2)
[2019-10-22 10:33] LABS: PSA, Diagnostic 2.2 ng/mL (0.0-6.5)
== END 2019-10-23 23:59 | disposition home or self-care (01) ==
LOC: INF 10:00
PROVIDERS: PCP Family Medicine; Visit Provider Internal Medicine Hematology & Oncology
DX: C61 Malignant neoplasm of prostate (principal); Z45.2 Encounter for adjustment and management of vascular access device
CPT/HCPCS: 36591; 80053; 84153; 85025

== ENCOUNTER 2019-11-09 10:38 | Outpatient (RCR) | payer MEDICARE, SELFPAY ==
[2019-11-09] MEDS: Normal Saline Flush 10 ML SYR IVP (10:30)
[2019-11-09 11:08] LABS: Abs Immature Grans 0.11 k/cumm (0.0-0.09); Absolute Eosinophil Count 0.01 k/cumm (0.0-0.7); Absolute Lymphocyte Count 1.56 k/cumm (1.2-3.4); Absolute Monocyte Count 1.14 k/cumm (0.11-0.7); Absolute Neutrophil Count 11.73 k/cumm (1.2-6.7); Basophils % 0.1; Eosinophils % 0.1; HCT 37.6 % (40.0-50.0); HGB 12.6 g/dL (13.5-17.5); Immature Grans % 0.8 %; Lymphocytes % 10.7; Mean Corp. HGB Concentration 33.5 g/dL (32.0-36.0); Mean Corpuscular Hemoglobin 31.5 pg (27.0-33.0); Mean Platelet Volume 8.4 fL (8.0-11.0); Monocytes % 7.8; Neutrophils % 80.5; Platelet Count 336 x1000/uL (130-400); RBC Distribution Width 15.1 % (11.8-14.1); White Blood Cell Count 14.57 k/cumm (4.4-10.8)
[2019-11-09 11:16] LABS: Absolute Basophil Count 0.01 k/cumm (0.0-0.2)
[2019-11-09 11:18] LABS: ALT 39 U/L (16-63); AST 22 U/L (15-37); Albumin 3.5 g/dL (3.4-5.0); Alkaline Phosphatase 57 U/L (46-116); Anion Gap 9.5 mmol/L (3-11); BUN 22 mg/dL (7-18); Bilirubin, Total 0.4 mg/dL (0.2-1.0); CO2 28.5 mmol/L (21.0-32.0); CREATININE 0.81 mg/dL (0.70-1.30); Calcium 8.9 mg/dL (8.5-10.1); Chloride 99 mmol/L (98-107); Glucose 149 mg/dL (74-106); Potassium 3.3 mmol/L (3.5-5.1); Sodium 137 mmol/L (136-145); Total Protein 6.8 g/dL (6.4-8.2)
[2019-11-12 13:57] LABS: PSA, Ultrasensitive 1.6 ng/mL (<= 7.2)
== END 2019-11-23 23:59 | disposition home or self-care (01) ==
LOC: INF 10:38
PROVIDERS: PCP Family Medicine; Visit Provider Internal Medicine Hematology & Oncology
DX: C61 Malignant neoplasm of prostate (principal); Z45.2 Encounter for adjustment and management of vascular access device
CPT/HCPCS: 36591; 80053; 84153; 85025

== ENCOUNTER 2019-12-14 04:33 | Outpatient (RCR) | payer MEDICARE, SELFPAY ==
[2019-11-30] MEDS: Normal Saline Flush 10 ML SYR IVP (10:20)
[2019-11-30 10:49] LABS: Absolute Basophil Count 0.03 10^3/uL (0.0-0.2); Absolute Eosinophil Count 0.01 10^3/uL (0.0-0.7); Absolute Lymphocyte Count 1.99 10^3/uL (1.2-3.4); Absolute Monocyte Count 0.93 10^3/uL (0.1-0.8); Absolute Neutrophil Count 8.16 10^3/uL (1.2-6.7); Basophils % 0.3; Eosinophils % 0.1; HCT 37.1 % (40.0-50.0); HGB 12.3 g/dL (13.5-17.5); Immature Grans % 0.9; Lymphocytes % 17.7; MCH 31.2 pg (27.0-33.0); MCHC 33.2 % (32.0-36.0); MCV 94.2 fL (80-95); MPV 8.3 fL (8.0-11.0); Monocytes % 8.3; Neutrophils % 72.7; Nucleated RBC 0 %; Platelet Count 266 10^3/uL (130-400); RBC 3.94 10^6/uL (4.36-5.78); RDW 14.8 % (11.8-14.1); RDW-SD 50.6 fL; WBC 11.23 10^3/uL (4.4-10.8)
[2019-11-30 11:02] LABS: ALT 39 U/L (16-63); AST 24 U/L (15-37); Albumin 3.4 g/dL (3.4-5.0); Alkaline Phosphatase 54 U/L (46-116); Anion Gap 8.2 mmol/L (3-11); BUN 20 mg/dL (7-18); Bilirubin, Total 0.5 mg/dL (0.2-1.0); CO2 27.8 mmol/L (21.0-32.0); CREATININE 0.88 mg/dL (0.70-1.30); Calcium 8.8 mg/dL (8.5-10.1); Chloride 99 mmol/L (98-107); Glucose 172 mg/dL (74-106); Potassium 3.5 mmol/L (3.5-5.1); Sodium 135 mmol/L (136-145); Total Protein 6.6 g/dL (6.4-8.2)
[2019-12-03 09:56] LABS: PSA, Diagnostic 0.9 ng/mL (0.0-6.5)
[2019-12-14] MEDS: Normal Saline Flush 10 ML SYR IVP (09:41)
[2019-12-14 09:44] LABS: Abs Immature Grans 0.08 10^3/uL (0.0-0.06); Absolute Basophil Count 0.04 10^3/uL (0.0-0.2); Absolute Eosinophil Count 0.07 10^3/uL (0.0-0.7); Absolute Lymphocyte Count 2.13 10^3/uL (1.2-3.4); Absolute Neutrophil Count 8.79 10^3/uL (1.2-6.7); Basophils % 0.3; Eosinophils % 0.6; HGB 12.7 g/dL (13.5-17.5); Immature Grans % 0.7; Lymphocytes % 17.7; MCH 31.9 pg (27.0-33.0); MCHC 33.4 % (32.0-36.0); MCV 95.5 fL (80-95); MPV 8.4 fL (8.0-11.0); Monocytes % 7.6; Neutrophils % 73.1; Nucleated RBC 0 %; Platelet Count 246 10^3/uL (130-400); RBC 3.98 10^6/uL (4.36-5.78); RDW 14.6 % (11.8-14.1); RDW-SD 50.5 fL; WBC 12.03 10^3/uL (4.4-10.8)
[2019-12-14 09:47] LABS: Absolute Monocyte Count 0.91 10^3/uL (0.1-0.8)
[2019-12-14 09:58] LABS: ALT 34 U/L (16-63); AST 27 U/L (15-37); Albumin 3.5 g/dL (3.4-5.0); Alkaline Phosphatase 64 U/L (46-116); BUN 16 mg/dL (7-18); Bilirubin, Total 0.6 mg/dL (0.2-1.0); CREATININE 0.82 mg/dL (0.70-1.30); Chloride 100 mmol/L (98-107); Glucose 124 mg/dL (74-106); Potassium 3.7 mmol/L (3.5-5.1); Sodium 135 mmol/L (136-145); Total Protein 6.7 g/dL (6.4-8.2)
[2020-01-04] MEDS: Normal Saline Flush 10 ML SYR IVP (09:35)
[2020-01-04 10:06] LABS: Abs Immature Grans 0.11 10^3/uL (0.0-0.06); Absolute Basophil Count 0.05 10^3/uL (0.0-0.2); Absolute Eosinophil Count 0.01 10^3/uL (0.0-0.7); Absolute Lymphocyte Count 2.46 10^3/uL (1.2-3.4); Absolute Monocyte Count 1.15 10^3/uL (0.1-0.8); Absolute Neutrophil Count 5.67 10^3/uL (1.2-6.7); Basophils % 0.5; Eosinophils % 0.1; HCT 35.4 % (40.0-50.0); HGB 12.1 g/dL (13.5-17.5); Immature Grans % 1.2; MCHC 34.2 % (32.0-36.0); MCV 93.7 fL (80-95); MPV 8.4 fL (8.0-11.0); Monocytes % 12.2; Nucleated RBC 0 %; Platelet Count 289 10^3/uL (130-400); RBC 3.78 10^6/uL (4.36-5.78); RDW 14.2 % (11.8-14.1); RDW-SD 47.7 fL; WBC 9.45 10^3/uL (4.4-10.8)
[2020-01-04 10:20] LABS: ALT 34 U/L (16-63); AST 20 U/L (15-37); Albumin 3.3 g/dL (3.4-5.0); Alkaline Phosphatase 51 U/L (46-116); Anion Gap 7.2 mmol/L (3-11); BUN 22 mg/dL (7-18); Bilirubin, Total 0.5 mg/dL (0.2-1.0); CO2 27.8 mmol/L (21.0-32.0); CREATININE 0.82 mg/dL (0.70-1.30); Chloride 100 mmol/L (98-107); Glucose 111 mg/dL (74-106); Potassium 3.5 mmol/L (3.5-5.1); Sodium 135 mmol/L (136-145); Total Protein 6.5 g/dL (6.4-8.2)
[2020-01-07 10:13] LABS: PSA, Ultrasensitive 0.65 ng/mL (<= 7.2)
== END 2019-12-23 23:29 | disposition home or self-care (01) ==
LOC: INF 04:33
PROVIDERS: PCP Family Medicine; Visit Provider Internal Medicine Hematology & Oncology
DX: C61 Malignant neoplasm of prostate (principal); Z45.2 Encounter for adjustment and management of vascular access device
CPT/HCPCS: 36591; 80053; 84153; 85025

== ENCOUNTER 2020-01-23 02:59 | Outpatient (CLI) | payer MEDICARE, SELFPAY ==
--- NOTE | 2020-01-23 | DI.CT_ITS ---
EXAM: CT CHEST/ABD/PEL W CLINICAL HISTORY: METASTATIC PROSTATE CA,C61,C77.1,ON CHEMO, RESTAGING EXAM. TECHNIQUE: Imaging Protocol: Axial computed tomography images with coronal and sagittal reformatted images were created and reviewed CONTRAST MATERIAL: Intravenous: Omnipaque 350 Contrast volume:100 ml Oral: no COMPARISON: CT CT CHEST/ABD/PEL W from 07/04/[address] CHEST W from 08/29/2019 FINDINGS: CHEST: Thyroid: Unremarkable Tracheobronchial tree: Patent where visualized. Mediastinum and Raven: Continued decrease in mediastinal adenopathy. The largest node is again in the subcarinal region. It is difficult to separate from the esophagus, now measures approximately 12 by 18 millimeters. Pulmonary parenchyma: 13 millimeter left lower lobe nodule, decreased from the previous exam. The neri ngs are suboptimally evaluated due to respiratory motion and basilar atelectasis. No new nodules are seen. Pleura: No effusion or pneumothorax. Lymph nodes: Within normal limits. Aorta: Thoracic portion non-dilated. Heart: Enlarged. Bones: Severe osteoporosis and flowing osteophytes. No compression fractures. ABDOMEN: Liver: Normal density. Stable low-density lesions, presumably cysts. Gallbladder and biliary tract: No radiodense calculus or dilation. Pancreas: Normal density, no abnormal calcifications or inflammatory process. Spleen: Normal. Kidneys: Normal size, contour and axis. No radiodense stones or obstructive uropathy. No masses seen. Right renal cysts. Adrenal glands: No masses seen. Aorta: Abdominal portion non-dilated. Retroaortic left renal vein. Lymph nodes: Within normal limits. PELVIS: Bladder: Symmetric distention, no gross wall thickening. Bowel: No obstruction or bowel wall thickening. Peritoneal cavity: No ascites, collection or mesenteric inflammatory response. Bones: Severe osteoporosis. Hardware in the lumbar spine. Reproductive organs: Status post prostatectomy. IMPRESSION: Significant decrease in size of mediastinal adenopathy. Decreased size of left lower lobe nodule. No evidence of metastatic disease in the abdomen or pelvis. RADIATION DOSE DELIVERED: 1,737.67mGy.cm Total DLP DATA REPOSITORY: All CT scans at this facility are submitted to the National Radiology Data Registry (NRDR) Dose Index Registry (DIR) with the [employer] (ACR). RADIATION OPTIMIZATION: All CT scans at this facility use at least one of these dose optimization te chniques: automated exposure control; mA and/or kV adjustment per patient size (includes targeted exa ms where dose is matched to clinical indication); or iterative reconstruction.
[2020-01-23] MEDS: Omnipaque 350 MG/ML 100 ML BTL IJ (10:10)
[2020-01-23] MEDS: Normal Saline - Diluent 50 ML VIAL IV (10:11)
[2020-01-23] MEDS: Normal Saline Flush 10 ML SYR IVP (10:12)
== END 2020-01-23 03:19 ==
PROVIDERS: PCP Family Medicine; Visit Provider Internal Medicine Hematology & Oncology
DX: C61 Malignant neoplasm of prostate (principal); C77.1 Secondary and unspecified malignant neoplasm of intrathoracic lymph nodes; R91.1 Solitary pulmonary nodule; R59.0 Localized enlarged lymph nodes
CPT/HCPCS: 74177; 71260; J3490

== ENCOUNTER 2020-01-23 06:53 | Outpatient (RCR) | payer MEDICARE, SELFPAY | END 2020-01-23 23:00 | disposition other institution (70) | LOC: INF 06:53 | PROVIDERS: PCP Family Medicine; Visit Provider Internal Medicine Hematology & Oncology | DX: Z45.2 Encounter for adjustment and management of vascular access device (principal); C61 Malignant neoplasm of prostate; C77.1 Secondary and unspecified malignant neoplasm of intrathoracic lymph nodes; R91.1 Solitary pulmonary nodule; R59.0 Localized enlarged lymph nodes | CPT/HCPCS: 36591; 74177; 80053; 84153; 96523; 71260; 85025; J3490 ==

== ENCOUNTER 2020-01-23 08:00 | Outpatient (RCR) | payer MEDICARE, SELFPAY ==
[2020-01-23] MEDS: Normal Saline Flush 10 ML SYR IVP (08:13)
[2020-01-23] MEDS: Heparin 500 UNITS/5 ML SYRINGE (08:13)
== END 2020-01-23 23:59 | disposition home or self-care (01) ==
LOC: INF 08:00
PROVIDERS: PCP Family Medicine; Visit Provider Internal Medicine Hematology & Oncology
DX: Z53.9 Procedure and treatment not carried out, unspecified reason (principal)
CPT/HCPCS: 96523

== ENCOUNTER 2020-02-01 05:37 | Outpatient (RCR) | payer MEDICARE, SELFPAY ==
[2020-02-01] MEDS: Normal Saline Flush 10 ML SYR IVP (13:27)
[2020-02-01 13:43] LABS: Abs Immature Grans 0.07 10^3/uL (0.0-0.06); Absolute Basophil Count 0.05 10^3/uL (0.0-0.2); Absolute Eosinophil Count 0.12 10^3/uL (0.0-0.7); Absolute Lymphocyte Count 1.36 10^3/uL (1.2-3.4); Absolute Monocyte Count 0.52 10^3/uL (0.1-0.8); Absolute Neutrophil Count 7.45 10^3/uL (1.2-6.7); Basophils % 0.5; Eosinophils % 1.3; HCT 35.4 % (40.0-50.0); HGB 11.8 g/dL (13.5-17.5); Immature Grans % 0.7; Lymphocytes % 14.2; MCH 31.7 pg (27.0-33.0); MCHC 33.3 % (32.0-36.0); MCV 95.2 fL (80-95); MPV 8.8 fL (8.0-11.0); Monocytes % 5.4; Neutrophils % 77.9; Nucleated RBC 0 %; Platelet Count 272 10^3/uL (130-400); RBC 3.72 10^6/uL (4.36-5.78); RDW 13.3 % (11.8-14.1); RDW-SD 46.3 fL; WBC 9.57 10^3/uL (4.4-10.8)
[2020-02-01 13:51] LABS: ALT 28 U/L (16-63); AST 23 U/L (15-37); Albumin 3.2 g/dL (3.4-5.0); Alkaline Phosphatase 62 U/L (46-116); Anion Gap 10.2 mmol/L (3-11); BUN 17 mg/dL (7-18); Bilirubin, Total 0.5 mg/dL (0.2-1.0); CO2 25.8 mmol/L (21.0-32.0); CREATININE 0.92 mg/dL (0.70-1.30); Calcium 8.9 mg/dL (8.5-10.1); Chloride 101 mmol/L (98-107); Glucose 159 mg/dL (74-106); Potassium 4.1 mmol/L (3.5-5.1); Sodium 137 mmol/L (136-145); Total Protein 6.6 g/dL (6.4-8.2)
[2020-02-04 10:54] LABS: PSA, Ultrasensitive 0.22 ng/mL (<= 7.2)
== END 2020-02-23 23:59 | disposition home or self-care (01) ==
LOC: INF 05:37
PROVIDERS: PCP Family Medicine; Visit Provider Internal Medicine Hematology & Oncology
DX: C61 Malignant neoplasm of prostate (principal); Z45.2 Encounter for adjustment and management of vascular access device
CPT/HCPCS: 36591; 80053; 84153; 85025

== ENCOUNTER 2020-03-07 01:10 | Outpatient (CLI) | payer MEDICARE, SELFPAY ==
[2020-03-07 09:15] LABS: Abs Immature Grans 0.02 10^3/uL (0.0-0.06); Absolute Basophil Count 0.07 10^3/uL (0.0-0.2); Absolute Eosinophil Count 0.55 10^3/uL (0.0-0.7); Absolute Monocyte Count 0.59 10^3/uL (0.1-0.8); Absolute Neutrophil Count 3.21 10^3/uL (1.2-6.7); Basophils % 1.1; HCT 34.4 % (40.0-50.0); HGB 12.1 g/dL (13.5-17.5); Immature Grans % 0.3; Lymphocytes % 27.7; MCHC 35.2 % (32.0-36.0); MPV 8.7 fL (8.0-11.0); Monocytes % 9.6; Neutrophils % 52.3; Nucleated RBC 0 %; Platelet Count 267 10^3/uL (130-400); RBC 3.78 10^6/uL (4.36-5.78); RDW 12.3 % (11.8-14.1); RDW-SD 41.4 fL; WBC 6.14 10^3/uL (4.4-10.8)
[2020-03-07 09:52] LABS: ALT 20 U/L (16-63); AST 25 U/L (15-37); Albumin 3.4 g/dL (3.4-5.0); Alkaline Phosphatase 116 U/L (46-116); Anion Gap 12.2 mmol/L (3-11); BUN 14 mg/dL (7-18); Bilirubin, Total 0.5 mg/dL (0.2-1.0); CO2 24.8 mmol/L (21.0-32.0); CREATININE 0.96 mg/dL (0.70-1.30); Calcium 8.9 mg/dL (8.5-10.1); Chloride 101 mmol/L (98-107); Glucose 135 mg/dL (74-106); Potassium 3.4 mmol/L (3.5-5.1); Sodium 138 mmol/L (136-145); Total Protein 6.4 g/dL (6.4-8.2)
== END 2020-03-07 01:30 ==
PROVIDERS: PCP Family Medicine; Visit Provider Internal Medicine Hematology & Oncology
DX: C61 Malignant neoplasm of prostate (principal)
CPT/HCPCS: 36415; 80053; 84153; 85025

== ENCOUNTER 2020-04-29 03:24 | Outpatient (CLI) | payer MEDICARE, SELFPAY ==
[2020-04-29 08:51] LABS: Abs Immature Grans 0.01 10^3/uL (0.0-0.06); Absolute Basophil Count 0.04 10^3/uL (0.0-0.2); Absolute Eosinophil Count 0.27 10^3/uL (0.0-0.7); Absolute Lymphocyte Count 1.94 10^3/uL (1.2-3.4); Absolute Monocyte Count 0.53 10^3/uL (0.1-0.8); Absolute Neutrophil Count 2.74 10^3/uL (1.2-6.7); Basophils % 0.7; Eosinophils % 4.9; HCT 34.8 % (40.0-50.0); HGB 12.2 g/dL (13.5-17.5); Immature Grans % 0.2; Lymphocytes % 35.1; MCH 31.4 pg (27.0-33.0); MCHC 35.1 % (32.0-36.0); MCV 89.5 fL (80-95); MPV 8.9 fL (8.0-11.0); Monocytes % 9.6; Neutrophils % 49.5; Nucleated RBC 0 %; Platelet Count 218 10^3/uL (130-400); RBC 3.89 10^6/uL (4.36-5.78); RDW 12.3 % (11.8-14.1); RDW-SD 39.7 fL; WBC 5.53 10^3/uL (4.4-10.8)
[2020-04-29 09:44] LABS: ALT 21 U/L (16-63); AST 18 U/L (15-37); Albumin 3.7 g/dL (3.4-5.0); Alkaline Phosphatase 103 U/L (46-116); Anion Gap 9.5 mmol/L (3-11); BUN 20 mg/dL (7-18); Bilirubin, Total 0.5 mg/dL (0.2-1.0); CO2 25.5 mmol/L (21.0-32.0); CREATININE 0.92 mg/dL (0.70-1.30); Calcium 8.9 mg/dL (8.5-10.1); Chloride 106 mmol/L (98-107); Glucose 138 mg/dL (74-106); Potassium 3.5 mmol/L (3.5-5.1); Sodium 141 mmol/L (136-145); Total Protein 6.5 g/dL (6.4-8.2)
[2020-04-30 12:19] LABS: PSA, Ultrasensitive 0.48 ng/mL (<= 7.2)
== END 2020-04-29 03:44 ==
PROVIDERS: PCP Family Medicine; Visit Provider Internal Medicine Hematology & Oncology
DX: C61 Malignant neoplasm of prostate (principal)
CPT/HCPCS: 36415; 80053; 84153; 85025

== ENCOUNTER 2020-06-06 03:00 | Outpatient (CLI) | payer MEDICARE, SELFPAY ==
--- NOTE | 2020-06-06 | DI.CT_ITS ---
EXAM: CT CHEST/ABD/PEL W CLINICAL HISTORY: PROSTATE CA,C61,ASSESS TREATMENT RESPONSE. TECHNIQUE: Imaging Protocol: Axial computed tomography images with coronal and sagittal reformatted images were created and reviewed CONTRAST MATERIAL: Intravenous: Omnipaque 350 Contrast volume:100 cc Oral: yes COMPARISON: CT CT CHEST/ABD/PEL W from 01/23/2020 FINDINGS: CHEST: Tracheobronchial tree: Patent where visualized. Mediastinum and Raven: No dominant adenopathy or fluid collection. Pulmonary parenchyma: Interval increase in size of left lower lobe pulmonary nodule narrow measuring 15 x 16 millimeters compared with 13 millimeters previously. There are there are multiple other area s of nodularity seen along the fissure and multiple tiny nodules in the left lower lobe which has whi ch have increased in size or are new since the previous exam. There is a vague nonspecific ground-gl ass opacity in the left in the left upper lobe. The right lung appears clear.. Pleura: No effusion or pneumothorax. Lymph nodes: Significant increase in size of right paratracheal lymph node 12 millimeters in diameter , which measured 3 by 9 millimeters on the previous exam.. Mild interval increase in size of precari nal lymph node from 8-12 millimeters. Slight interval increase in right hilar adenopathy. 12 millim eters superior mediastinal lymph node which was barely visible on the previous exam. Aorta: . Ascending aorta measures 4.5 cm in diameter. No dissection. Minimal calcifications. Heart: Mild enlargement of the left atrium. Mild coronary artery calcifications Bones: Syndesmophyte formation. The bones appear osteoporotic. No fracture, lytic or blastic lesion is seen. Port over left right chest wall with tip in the upper right atrium. ABDOMEN and pelvis: Liver again shows multiple small cysts. The spleen, adrenals, and left kidney are unremarkable. There is a right there are right renal cysts. There is a retro aortic left renal vein. The the aorta shows mild calcification but no evidence of an aneurysm. There is no adenopathy or free fluid. The patient is status post prostatectomy. The bladder is nearly empty and shows mild diffuse wall thickening. Th e bowel is unremarkable. Metallic rods are seen at L5-S1. The bones appear osteoporotic. Degenerative disc changes are seen. No destructive bony lesion or blastic lesion is seen. IMPRESSION: Increased size left lower lobe pulmonary mass and multiple adjacent small nodules. Interval increase in size mediastinal lymph nodes. No metastatic disease is seen in the abdomen or pelvis. RADIATION DOSE DELIVERED: 1,331.7mGy.cm Total DLP DATA REPOSITORY: All CT scans at this facility are submitted to the National Radiology Data Registry (NRDR) Dose Index Registry (DIR) with the [employer] (ACR). RADIATION OPTIMIZATION: All CT scans at this facility use at least one of these dose optimization te chniques: automated exposure control; mA and/or kV adjustment per patient size (includes targeted exa ms where dose is matched to clinical indication); or iterative reconstruction.
[2020-06-06] MEDS: Omnipaque 350 MG/ML 50 ML BTL PO (07:52)
[2020-06-06] MEDS: Breeza Beverage 473 ML BTL PO ×2 (07:52→07:53)
== END 2020-06-06 03:01 ==
LOC: DI 03:00
PROVIDERS: PCP Family Medicine; Visit Provider Nurse Practitioner Family
DX: C61 Malignant neoplasm of prostate (principal); R91.8 Other nonspecific abnormal finding of lung field
CPT/HCPCS: 36591; 74177; 80053; 84153; 71260; 85025; Q9967

== ENCOUNTER 2020-06-06 03:44 | Outpatient (RCR) | payer MEDICARE, SELFPAY ==
[2020-06-06] MEDS: Normal Saline Flush 10 ML SYR IVP (07:48)
[2020-06-06 08:00] LABS: Abs Immature Grans 0.02 10^3/uL (0.0-0.06); Absolute Basophil Count 0.07 10^3/uL (0.0-0.2); Absolute Eosinophil Count 0.22 10^3/uL (0.0-0.7); Absolute Lymphocyte Count 2.92 10^3/uL (1.2-3.4); Absolute Monocyte Count 0.65 10^3/uL (0.1-0.8); Absolute Neutrophil Count 3.44 10^3/uL (1.2-6.7); HCT 35.5 % (40.0-50.0); HGB 12.7 g/dL (13.5-17.5); Immature Grans % 0.3; Lymphocytes % 39.9; MCHC 35.8 % (32.0-36.0); MCV 89.4 fL (80-95); MPV 8.8 fL (8.0-11.0); Monocytes % 8.9; Neutrophils % 46.9; Nucleated RBC 0 %; Platelet Count 238 10^3/uL (130-400); RBC 3.97 10^6/uL (4.36-5.78); RDW 12.5 % (11.8-14.1); RDW-SD 40.9 fL; WBC 7.32 10^3/uL (4.4-10.8)
[2020-06-06 08:12] LABS: ALT 29 U/L (16-63); AST 28 U/L (15-37); Albumin 3.7 g/dL (3.4-5.0); Alkaline Phosphatase 102 U/L (46-116); Anion Gap 10.7 mmol/L (3-11); BUN 17 mg/dL (7-18); CO2 25.3 mmol/L (21.0-32.0); CREATININE 0.9 mg/dL (0.70-1.30); Calcium 9.4 mg/dL (8.5-10.1); Chloride 104 mmol/L (98-107); Glucose 116 mg/dL (74-106); Potassium 3.8 mmol/L (3.5-5.1); Sodium 140 mmol/L (136-145); Total Protein 7.3 g/dL (6.4-8.2)
[2020-06-07 13:14] LABS: PSA, Ultrasensitive 1.2 ng/mL (<= 7.2)
== END 2020-06-22 23:59 | disposition home or self-care (01) ==
LOC: INF 03:44
PROVIDERS: PCP Family Medicine; Visit Provider Internal Medicine Hematology & Oncology
DX: C61 Malignant neoplasm of prostate (principal); C77.1 Secondary and unspecified malignant neoplasm of intrathoracic lymph nodes; Z45.2 Encounter for adjustment and management of vascular access device
CPT/HCPCS: 36591; 80053; 84153; 85025

== ENCOUNTER 2020-06-27 08:26 | Outpatient (RCR) | payer MEDICARE, SELFPAY ==
[2020-06-27] MEDS: Normal Saline Flush 10 ML SYR IVP (08:42)
[2020-06-27 08:44] LABS: Abs Immature Grans 0.03 10^3/uL (0.0-0.06); Absolute Basophil Count 0.04 10^3/uL (0.0-0.2); Absolute Eosinophil Count 0.26 10^3/uL (0.0-0.7); Absolute Lymphocyte Count 2.01 10^3/uL (1.2-3.4); Absolute Monocyte Count 0.56 10^3/uL (0.1-0.8); Absolute Neutrophil Count 3.13 10^3/uL (1.2-6.7); Basophils % 0.7; Eosinophils % 4.3; HCT 33.3 % (40.0-50.0); HGB 12.1 g/dL (13.5-17.5); Immature Grans % 0.5; Lymphocytes % 33.3; MCH 33.1 pg (27.0-33.0); MCHC 36.3 % (32.0-36.0); MPV 8.9 fL (8.0-11.0); Monocytes % 9.3; Neutrophils % 51.9; Nucleated RBC 0 %; Platelet Count 207 10^3/uL (130-400); RBC 3.66 10^6/uL (4.36-5.78); RDW 12.7 % (11.8-14.1); WBC 6.03 10^3/uL (4.4-10.8)
[2020-06-27 09:03] LABS: ALT 28 U/L (16-63); AST 25 U/L (15-37); Albumin 3.4 g/dL (3.4-5.0); Alkaline Phosphatase 92 U/L (46-116); Anion Gap 11.1 mmol/L (3-11); BUN 17 mg/dL (7-18); Bilirubin, Total 0.6 mg/dL (0.2-1.0); CO2 24.9 mmol/L (21.0-32.0); CREATININE 0.8 mg/dL (0.70-1.30); Calcium 8.8 mg/dL (8.5-10.1); Chloride 105 mmol/L (98-107); Glucose 142 mg/dL (74-106); Potassium 3.5 mmol/L (3.5-5.1); Sodium 141 mmol/L (136-145); Total Protein 6.9 g/dL (6.4-8.2)
[2020-06-30 13:28] LABS: PSA, Ultrasensitive 1.6 ng/mL (<= 7.2)
== END 2020-07-23 23:59 | disposition home or self-care (01) ==
LOC: INF 08:26
PROVIDERS: PCP Family Medicine; Visit Provider Internal Medicine Hematology & Oncology
DX: C61 Malignant neoplasm of prostate (principal); Z45.2 Encounter for adjustment and management of vascular access device
CPT/HCPCS: 36591; 80053; 84153; 85025

== ENCOUNTER 2020-07-22 03:49 | Outpatient (CLI) | payer MEDICARE, SELFPAY ==
[2020-07-22 13:11] LABS: Abs Immature Grans 0.02 10^3/uL (0.0-0.06); Absolute Basophil Count 0.07 10^3/uL (0.0-0.2); Absolute Eosinophil Count 0.15 10^3/uL (0.0-0.7); Absolute Lymphocyte Count 2.67 10^3/uL (1.2-3.4); Absolute Monocyte Count 0.61 10^3/uL (0.1-0.8); Absolute Neutrophil Count 3.02 10^3/uL (1.2-6.7); Basophils % 1.1; Eosinophils % 2.3; HCT 32.6 % (40.0-50.0); HGB 11.5 g/dL (13.5-17.5); Immature Grans % 0.3; Lymphocytes % 40.8; MCH 32.4 pg (27.0-33.0); MCHC 35.3 % (32.0-36.0); MCV 91.8 fL (80-95); MPV 8.5 fL (8.0-11.0); Monocytes % 9.3; Neutrophils % 46.2; Nucleated RBC 0 %; Platelet Count 225 10^3/uL (130-400); RBC 3.55 10^6/uL (4.36-5.78); RDW 12.4 % (11.8-14.1); WBC 6.54 10^3/uL (4.4-10.8)
[2020-07-22 14:01] LABS: ALT 28 U/L (16-63); AST 31 U/L (15-37); Albumin 3.3 g/dL (3.4-5.0); Alkaline Phosphatase 81 U/L (46-116); Anion Gap 10.2 mmol/L (3-11); BUN 14 mg/dL (7-18); Bilirubin, Total 0.4 mg/dL (0.2-1.0); CO2 26.8 mmol/L (21.0-32.0); CREATININE 0.9 mg/dL (0.70-1.30); Calcium 8.7 mg/dL (8.5-10.1); Chloride 103 mmol/L (98-107); Glucose 122 mg/dL (74-106); Sodium 140 mmol/L (136-145); Total Protein 6.5 g/dL (6.4-8.2)
[2020-07-23 15:54] LABS: PSA, Ultrasensitive 1.9 ng/mL (<= 7.2)
== END 2020-07-22 03:50 | disposition home or self-care (01) ==
LOC: LBO 03:50
PROVIDERS: PCP Family Medicine; Visit Provider Internal Medicine Hematology & Oncology
DX: C61 Malignant neoplasm of prostate (principal); C78.02 Secondary malignant neoplasm of left lung
CPT/HCPCS: 36415; 80053; 84153; 85025

== ENCOUNTER 2020-08-18 08:10 | Outpatient (CLI) | payer MEDICARE, SELFPAY ==
--- NOTE | 2020-08-18 08:00 | RT.EKG_ITS ---
APPROVED REPORT Exam: Resting ECG Patient Location: O HR:64 bpm ECG Measurements Heart Rate 64 AXIS SC 191 P -58 QRSd 87 QRS 5 QT 448 T 42 QTc 462 Conclusion Sinus rhythm.
== END 2020-08-18 08:11 | disposition home or self-care (01) ==
LOC: DI.CM 08:11
PROVIDERS: PCP Family Medicine; Visit Provider Family Medicine
DX: Z01.810 Encounter for preprocedural cardiovascular examination (principal)
CPT/HCPCS: 93010

== ENCOUNTER 2020-09-01 03:19 | Outpatient (CLI) | payer MEDICARE, SELFPAY ==
[2020-09-01 08:12] LABS: Abs Immature Grans 0.01 10^3/uL (0.0-0.06); Absolute Basophil Count 0.05 10^3/uL (0.0-0.2); Absolute Eosinophil Count 0.22 10^3/uL (0.0-0.7); Absolute Lymphocyte Count 1.07 10^3/uL (1.2-3.4); Absolute Monocyte Count 0.53 10^3/uL (0.1-0.8); Absolute Neutrophil Count 2.38 10^3/uL (1.2-6.7); Basophils % 1.2; Eosinophils % 5.2; HCT 34.1 % (40.0-50.0); HGB 11.9 g/dL (13.5-17.5); Immature Grans % 0.2; Lymphocytes % 25.1; MCH 32.8 pg (27.0-33.0); MCHC 34.9 % (32.0-36.0); MCV 93.9 fL (80-95); MPV 8.6 fL (8.0-11.0); Monocytes % 12.4; Neutrophils % 55.9; Nucleated RBC 0 %; Platelet Count 236 10^3/uL (130-400); RBC 3.63 10^6/uL (4.36-5.78); RDW 13.9 % (11.8-14.1); RDW-SD 48.3 fL; WBC 4.26 10^3/uL (4.4-10.8)
[2020-09-01 08:31] LABS: ALT 27 U/L (16-63); AST 27 U/L (15-37); Albumin 3.4 g/dL (3.4-5.0); Alkaline Phosphatase 83 U/L (46-116); Anion Gap 9.2 mmol/L (3-11); BUN 14 mg/dL (7-18); Bilirubin, Total 0.7 mg/dL (0.2-1.0); CO2 27.8 mmol/L (21.0-32.0); CREATININE 0.9 mg/dL (0.70-1.30); Calcium 8.9 mg/dL (8.5-10.1); Chloride 105 mmol/L (98-107); Glucose 114 mg/dL (74-106); Potassium 3.9 mmol/L (3.5-5.1); Sodium 142 mmol/L (136-145); Total Protein 6.7 g/dL (6.4-8.2)
[2020-09-02 11:20] LABS: PSA, Ultrasensitive 3.1 ng/mL (<= 7.2)
== END 2020-09-01 03:20 | disposition home or self-care (01) ==
LOC: LBO 03:19
PROVIDERS: PCP Family Medicine; Visit Provider Internal Medicine Hematology & Oncology
DX: C61 Malignant neoplasm of prostate (principal); C78.00 Secondary malignant neoplasm of unspecified lung
CPT/HCPCS: 36415; 80053; 84153; 85025

== ENCOUNTER 2020-10-03 04:04 | Outpatient (CLI) | payer MEDICARE, SELFPAY ==
[2020-10-03 10:18] LABS: Abs Immature Grans 0.02 10^3/uL (0.0-0.06); Absolute Basophil Count 0.07 10^3/uL (0.0-0.2); Absolute Eosinophil Count 0.29 10^3/uL (0.0-0.7); Absolute Lymphocyte Count 0.69 10^3/uL (1.2-3.4); Absolute Monocyte Count 0.65 10^3/uL (0.1-0.8); Absolute Neutrophil Count 2.81 10^3/uL (1.2-6.7); Basophils % 1.5; Eosinophils % 6.4; HCT 33.4 % (40.0-50.0); HGB 12.2 g/dL (13.5-17.5); Immature Grans % 0.4; Lymphocytes % 15.2; MCH 34.4 pg (27.0-33.0); MCHC 36.5 % (32.0-36.0); MCV 94.1 fL (80-95); MPV 8.1 fL (8.0-11.0); Monocytes % 14.3; Neutrophils % 62.2; Nucleated RBC 0 %; Platelet Count 178 10^3/uL (130-400); RBC 3.55 10^6/uL (4.36-5.78); RDW 13.8 % (11.8-14.1); WBC 4.53 10^3/uL (4.4-10.8)
[2020-10-03 10:37] LABS: ALT 31 U/L (16-63); AST 31 U/L (15-37); Albumin 3.4 g/dL (3.4-5.0); Alkaline Phosphatase 91 U/L (46-116); Anion Gap 7.5 mmol/L (3-11); BUN 19 mg/dL (7-18); Bilirubin, Total 0.5 mg/dL (0.2-1.0); CO2 27.5 mmol/L (21.0-32.0); Calcium 8.8 mg/dL (8.5-10.1); Chloride 104 mmol/L (98-107); Glucose 115 mg/dL (74-106); Potassium 3.7 mmol/L (3.5-5.1); Sodium 139 mmol/L (136-145); Total Protein 6.8 g/dL (6.4-8.2)
[2020-10-06 12:49] LABS: PSA, Ultrasensitive 6.4 ng/mL (<= 7.2)
== END 2020-10-03 04:05 | disposition home or self-care (01) ==
LOC: LBO 04:04
PROVIDERS: PCP Family Medicine; Visit Provider Internal Medicine Hematology & Oncology
DX: C61 Malignant neoplasm of prostate (principal); C78.02 Secondary malignant neoplasm of left lung
CPT/HCPCS: 36415; 80053; 84153; 85025

== ENCOUNTER 2020-10-20 01:54 | Outpatient (CLI) | payer MEDICARE, SELFPAY ==
--- NOTE | 2020-10-20 | DI.CT_ITS ---
Exam(s) CT CHEST W EXAM: CT CHEST W CLINICAL HISTORY: PROSTATE CA METS TO BONE, C61, C79.51. TECHNIQUE: Multi planar reconstructions were performed. CONTRAST MATERIAL: Omnipaque 350; 70 cc COMPARISON: CT CT CHEST W from 08/29/[address] CHEST/ABD/PEL W from 06/06/[address] CHEST/ABD/PEL W from 06/06/2020 FINDINGS: CHEST: Compared to most recent study of 06/06/2020 LUNGS: The left lower lobe para-infrahilar nodule is unchanged. A more peripheral nodule at the same level in subpleural location is also unchanged. Just below this level there is now another nodule whi ch is slightly more prominent than previous. In addition, there is increasing interstitial disease in the left lower lobe, most evident in the basal segments. There is no associated pleural effusion. There are no new nodules evident in the opposite-right lung. No pleural effusions on either side. No new findings in trachea and mainstem bronchi. MEDIASTINUM: Size of the previously described mediastinal lymph nodes have slightly increased. The an terior right retrosternal lymph node located just anterior to the innominate vein right of center has increased in size, previously measuring 10 by 10 millimeters and presently measuring 20 by 15 millim eters. Just below this level the right paratracheal lymph node has increased in size, previously digna uring 15 x 11 millimeter and presently measuring 20 x 20 millimeters. Just below this the precarinal right of center lymph node has increased in size from 12 by 9 millimeters to its present size of 19 b y 15 millimeters. There is no new obvious hilar adenopathy nor increase in subcarinal adenopathy. The re is no supraclavicular nor axillary adenopathy. The thyroid gland is not enlarged. Small less than 1 cm noncalcified nodules noted in the right thyro id lobe. CARDIAC: Heart size is unchanged. There is no pericardial effusion. Caliber of the ascending thoracic aorta is 3.9 cm. No dissection. There is also slight prominence of the diameter of the ascending tho racic aorta measuring approximately 2.9 cm. There is no adenopathy around the esophagus (which is not dilated).Caliber of the thoracic aorta is within normal limits. VISUALIZED UPPER ABDOMEN:There are no significant adrenal masses. The previously described hypodensi ties in the liver appear unchanged. A benign cyst exophytic off the medial aspect of the right kidney is noted, only partially included in the field of view of this chest study. OSSEOUS: Similar appearing large areas of lucency in the anterior aspect of multiple contiguous mid-l ower thoracic vertebral bodies appears unchanged from prior studies. Doubtful for significant lesions . Also calcified anterior longitudinal ligament again noted. Gradual kyphosis. No wedge compression f ractures.. IMPRESSION: 1. When compared to the CT scan of 06/06/2020 there has been some further deterioration. There is inc reasing interstitial disease in left lower lobe and there appears to be an additional small left lowe r lobe nodule, this just below the level of the stable appearing para-infrahilar left lower lobe lung nodule. There are no pleural effusions. However, there is also increasing size lymph nodes in the ri ght retrosternal and right paratracheal and right precarinal regions, as detailed above. 2. Visualized upper abdominal findings as above. 3. RADIATION DOSE DELIVERED: 462.08mGy.cm Total DLP DATA REPOSITORY: All CT scans at this facility are submitted to the National Radiology Data Registry (NRDR) Dose Index Registry (DIR) with the [employer] (ACR). RADIATION OPTIMIZATION: All CT scans at this facility use at least one of these dose optimization te chniques: automated exposure control; mA and/or kV adjustment per patient size (includes targeted exa ms where dose is matched to clinical indication); or iterative reconstruction.
[2020-10-20] MEDS: Omnipaque 350 MG/ML 100 ML BTL IJ (13:34)
[2020-10-20] MEDS: Normal Saline - Diluent 50 ML VIAL IV (13:36)
== END 2020-10-20 02:14 ==
PROVIDERS: PCP Family Medicine; Visit Provider Internal Medicine Hematology & Oncology
DX: C79.51 Secondary malignant neoplasm of bone (principal); C61 Malignant neoplasm of prostate; R59.9 Enlarged lymph nodes, unspecified; J98.4 Other disorders of lung
CPT/HCPCS: 36591; 80053; 84153; 71260; 85025; J3490

== ENCOUNTER 2020-10-20 02:54 | Outpatient (RCR) | payer MEDICARE, SELFPAY ==
[2020-10-20] MEDS: Normal Saline Flush 10 ML SYR IVP (12:41)
[2020-10-20] MEDS: Heparin 500 UNITS/5 ML SYRINGE IV (12:42)
[2020-10-20 12:49] LABS: Abs Immature Grans 0.01 10^3/uL (0.0-0.06); Absolute Basophil Count 0.09 10^3/uL (0.0-0.2); Absolute Eosinophil Count 0.35 10^3/uL (0.0-0.7); Absolute Lymphocyte Count 0.96 10^3/uL (1.2-3.4); Absolute Monocyte Count 0.61 10^3/uL (0.1-0.8); Absolute Neutrophil Count 2.53 10^3/uL (1.2-6.7); Eosinophils % 7.7; HCT 31.9 % (40.0-50.0); HGB 11.5 g/dL (13.5-17.5); Immature Grans % 0.2; Lymphocytes % 21.1; MCH 34.5 pg (27.0-33.0); MCHC 36.1 % (32.0-36.0); MCV 95.8 fL (80-95); MPV 8.4 fL (8.0-11.0); Monocytes % 13.4; Neutrophils % 55.6; Nucleated RBC 0 %; Platelet Count 186 10^3/uL (130-400); RBC 3.33 10^6/uL (4.36-5.78); RDW 13.8 % (11.8-14.1); RDW-SD 48.2 fL; WBC 4.55 10^3/uL (4.4-10.8)
[2020-10-20 13:02] LABS: ALT 30 U/L (16-63); AST 39 U/L (15-37); Albumin 3.4 g/dL (3.4-5.0); Alkaline Phosphatase 79 U/L (46-116); Anion Gap 9.6 mmol/L (3-11); BUN 18 mg/dL (7-18); Bilirubin, Total 0.6 mg/dL (0.2-1.0); CO2 26.4 mmol/L (21.0-32.0); CREATININE 0.9 mg/dL (0.70-1.30); Calcium 8.5 mg/dL (8.5-10.1); Chloride 104 mmol/L (98-107); Glucose 129 mg/dL (74-106); Potassium 3.5 mmol/L (3.5-5.1); Sodium 140 mmol/L (136-145); Total Protein 6.7 g/dL (6.4-8.2)
[2020-10-21 16:42] LABS: PSA, Ultrasensitive 10.5 ng/mL (<= 7.2)
== END 2020-10-22 23:59 | disposition home or self-care (01) ==
LOC: INF 02:54
PROVIDERS: PCP Family Medicine; Visit Provider Internal Medicine Hematology & Oncology
DX: C61 Malignant neoplasm of prostate (principal); Z45.2 Encounter for adjustment and management of vascular access device; C78.00 Secondary malignant neoplasm of unspecified lung
CPT/HCPCS: 36591; 80053; 84153; 85025

== ENCOUNTER 2020-11-07 05:48 | Outpatient (RCR) | payer MEDICARE, SELFPAY ==
[2020-11-07 09:35] LABS: Abs Immature Grans 0.03 10^3/uL (0.0-0.06); Absolute Basophil Count 0.06 10^3/uL (0.0-0.2); Absolute Eosinophil Count 0.13 10^3/uL (0.0-0.7); Absolute Lymphocyte Count 0.47 10^3/uL (1.2-3.4); Absolute Monocyte Count 0.38 10^3/uL (0.1-0.8); Absolute Neutrophil Count 4.36 10^3/uL (1.2-6.7); Basophils % 1.1; Eosinophils % 2.4; HCT 31.2 % (40.0-50.0); HGB 11.4 g/dL (13.5-17.5); Immature Grans % 0.6; Lymphocytes % 8.7; MCH 35.3 pg (27.0-33.0); MCHC 36.5 % (32.0-36.0); MCV 96.6 fL (80-95); MPV 8.7 fL (8.0-11.0); Neutrophils % 80.2; Nucleated RBC 0 %; Platelet Count 178 10^3/uL (130-400); RBC 3.23 10^6/uL (4.36-5.78); RDW 13.1 % (11.8-14.1); RDW-SD 46.8 fL; WBC 5.43 10^3/uL (4.4-10.8)
[2020-11-07] MEDS: Normal Saline Flush 10 ML SYR IVP (09:36)
[2020-11-07 09:47] LABS: ALT 28 U/L (16-63); AST 32 U/L (15-37); Albumin 3.2 g/dL (3.4-5.0); Alkaline Phosphatase 77 U/L (46-116); Anion Gap 8.4 mmol/L (3-11); BUN 13 mg/dL (7-18); Bilirubin, Total 0.8 mg/dL (0.2-1.0); CO2 26.6 mmol/L (21.0-32.0); CREATININE 0.9 mg/dL (0.70-1.30); Calcium 8.7 mg/dL (8.5-10.1); Chloride 102 mmol/L (98-107); Glucose 124 mg/dL (74-106); Potassium 3.3 mmol/L (3.5-5.1); Sodium 137 mmol/L (136-145); Total Protein 6.8 g/dL (6.4-8.2)
[2020-11-08 11:46] LABS: PSA, Ultrasensitive 13.1 ng/mL (<= 7.2)
== END 2020-11-22 23:59 | disposition home or self-care (01) ==
LOC: INF 05:48
PROVIDERS: PCP Family Medicine; Visit Provider Internal Medicine Hematology & Oncology
DX: C61 Malignant neoplasm of prostate (principal); C79.51 Secondary malignant neoplasm of bone; Z45.2 Encounter for adjustment and management of vascular access device
CPT/HCPCS: 36591; 80053; 84153; 85025

== ENCOUNTER 2020-12-19 03:50 | Outpatient (RCR) | payer MEDICARE, SELFPAY ==
[2020-11-28] MEDS: Normal Saline Flush 10 ML SYR IVP (10:20)
[2020-11-28 10:22] LABS: Abs Immature Grans 0.27 10^3/uL (0.0-0.06); Absolute Basophil Count 0.05 10^3/uL (0.0-0.2); Absolute Eosinophil Count 0.09 10^3/uL (0.0-0.7); Absolute Lymphocyte Count 0.41 10^3/uL (1.2-3.4); Absolute Monocyte Count 0.83 10^3/uL (0.1-0.8); Absolute Neutrophil Count 6.34 10^3/uL (1.2-6.7); Basophils % 0.6; Eosinophils % 1.1; HCT 29.4 % (40.0-50.0); HGB 10.4 g/dL (13.5-17.5); Immature Grans % 3.4; Lymphocytes % 5.1; MCH 34.8 pg (27.0-33.0); MCHC 35.4 % (32.0-36.0); MCV 98.3 fL (80-95); MPV 8.6 fL (8.0-11.0); Monocytes % 10.4; Neutrophils % 79.4; Nucleated RBC 0 %; Platelet Count 154 10^3/uL (130-400); RBC 2.99 10^6/uL (4.36-5.78); RDW 12.8 % (11.8-14.1); RDW-SD 45.5 fL; WBC 7.99 10^3/uL (4.4-10.8)
[2020-11-28 10:36] LABS: ALT 38 U/L (16-63); AST 30 U/L (15-37); Albumin 3.4 g/dL (3.4-5.0); Alkaline Phosphatase 65 U/L (46-116); Anion Gap 7.9 mmol/L (3-11); BUN 19 mg/dL (7-18); Bilirubin, Total 0.7 mg/dL (0.2-1.0); CO2 28.1 mmol/L (21.0-32.0); CREATININE 0.8 mg/dL (0.70-1.30); Calcium 8.7 mg/dL (8.5-10.1); Chloride 101 mmol/L (98-107); Glucose 159 mg/dL (74-106); Potassium 3.7 mmol/L (3.5-5.1); Sodium 137 mmol/L (136-145); Total Protein 6.6 g/dL (6.4-8.2)
[2020-12-01 11:57] LABS: PSA, Ultrasensitive 19.3 ng/mL (<= 7.2)
[2020-12-19] MEDS: Normal Saline Flush 10 ML SYR IVP (09:43)
[2020-12-19 09:55] LABS: Abs Immature Grans 0.29 10^3/uL (0.0-0.06); Absolute Basophil Count 0.07 10^3/uL (0.0-0.2); Absolute Eosinophil Count 0.02 10^3/uL (0.0-0.7); Absolute Lymphocyte Count 0.47 10^3/uL (1.2-3.4); Absolute Monocyte Count 0.89 10^3/uL (0.1-0.8); Absolute Neutrophil Count 8.83 10^3/uL (1.2-6.7); Basophils % 0.7; Eosinophils % 0.2; HCT 28.4 % (40.0-50.0); HGB 9.7 g/dL (13.5-17.5); Immature Grans % 2.7; Lymphocytes % 4.4; MCH 33.9 pg (27.0-33.0); MCHC 34.2 % (32.0-36.0); MCV 99.3 fL (80-95); MPV 8.8 fL (8.0-11.0); Monocytes % 8.4; Neutrophils % 83.6; Nucleated RBC 0 %; Platelet Count 260 10^3/uL (130-400); RBC 2.86 10^6/uL (4.36-5.78); RDW 14.1 % (11.8-14.1); RDW-SD 49.1 fL; WBC 10.57 10^3/uL (4.4-10.8)
[2020-12-19 10:09] LABS: ALT 35 U/L (16-63); AST 40 U/L (15-37); Albumin 3.1 g/dL (3.4-5.0); Alkaline Phosphatase 59 U/L (46-116); Anion Gap 9.7 mmol/L (3-11); BUN 18 mg/dL (7-18); Bilirubin, Total 0.8 mg/dL (0.2-1.0); CO2 26.3 mmol/L (21.0-32.0); CREATININE 1.1 mg/dL (0.70-1.30); Calcium 9.1 mg/dL (8.5-10.1); Chloride 99 mmol/L (98-107); Glucose 140 mg/dL (74-106); Potassium 3.9 mmol/L (3.5-5.1); Sodium 135 mmol/L (136-145); Total Protein 6.4 g/dL (6.4-8.2)
[2020-12-22 09:49] LABS: PSA, Ultrasensitive 27.1 ng/mL (<= 7.2)
== END 2020-12-23 23:59 | disposition home or self-care (01) ==
LOC: INF 03:50
PROVIDERS: PCP Family Medicine; Visit Provider Internal Medicine Hematology & Oncology
DX: C61 Malignant neoplasm of prostate (principal); C78.00 Secondary malignant neoplasm of unspecified lung; Z45.2 Encounter for adjustment and management of vascular access device
CPT/HCPCS: 36591; 80053; 84153; 85025

== ENCOUNTER 2021-01-09 04:39 | Outpatient (RCR) | payer MEDICARE, SELFPAY ==
[2021-01-09] MEDS: Normal Saline Flush 10 ML SYR IVP (09:45)
[2021-01-09 09:49] LABS: Abs Immature Grans 0.13 10^3/uL (0.0-0.06); Absolute Basophil Count 0.05 10^3/uL (0.0-0.2); Absolute Lymphocyte Count 0.66 10^3/uL (1.2-3.4); Basophils % 0.4; HCT 29.6 % (40.0-50.0); HGB 9.7 g/dL (13.5-17.5); Immature Grans % 1.1; Lymphocytes % 5.7; MCH 32.8 pg (27.0-33.0); MCHC 32.8 % (32.0-36.0); MPV 8.8 fL (8.0-11.0); Monocytes % 8.6; Neutrophils % 84.2; Nucleated RBC 0 %; Platelet Count 232 10^3/uL (130-400); RBC 2.96 10^6/uL (4.36-5.78); RDW 15.9 % (11.8-14.1); RDW-SD 57.3 fL; WBC 11.59 10^3/uL (4.4-10.8)
[2021-01-09 09:52] LABS: Absolute Neutrophil Count 9.76 10^3/uL (1.2-6.7)
[2021-01-09 10:02] LABS: ALT 32 U/L (16-63); AST 28 U/L (15-37); Albumin 3.2 g/dL (3.4-5.0); Alkaline Phosphatase 55 U/L (46-116); Anion Gap 7.6 mmol/L (3-11); BUN 16 mg/dL (7-18); Bilirubin, Total 0.6 mg/dL (0.2-1.0); CO2 26.4 mmol/L (21.0-32.0); CREATININE 1.1 mg/dL (0.70-1.30); Calcium 8.5 mg/dL (8.5-10.1); Chloride 102 mmol/L (98-107); Glucose 150 mg/dL (74-106); Potassium 3.8 mmol/L (3.5-5.1); Sodium 136 mmol/L (136-145); Total Protein 6.5 g/dL (6.4-8.2)
[2021-01-12 14:02] LABS: PSA, Ultrasensitive 17.4 ng/mL (<= 7.2)
== END 2021-01-22 23:59 | disposition home or self-care (01) ==
LOC: INF 04:39
PROVIDERS: PCP Family Medicine; Visit Provider Internal Medicine Hematology & Oncology
DX: C61 Malignant neoplasm of prostate (principal); C79.51 Secondary malignant neoplasm of bone; Z45.2 Encounter for adjustment and management of vascular access device
CPT/HCPCS: 36591; 80053; 84153; 85025

== ENCOUNTER 2021-01-29 02:14 | Outpatient (CLI) | payer MEDICARE, SELFPAY ==
--- NOTE | 2021-01-29 | DI.CT_ITS ---
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 COMPARISON: CT CT CHEST W from 10/20/[address] CHEST W from 10/20/2020 FINDINGS: Tracheobronchial tree: Patent where visualized. Pulmonary parenchyma: No focal consolidations are present. No architectural distortion. There has be en interval decrease in size of the superior most left pulmonary nodule measuring 0.8 cm on the curre nt examination. The more inferiorly located nodule is not visualized on the current examination. Th ere has been an overall improvement of the nodularity pubis Elma seen in the left lingula and the left lower lobe. The right lung remains clear. Mediastinum and Raven: There has been a decrease in size in the mediastinal adenopathy. The right par atracheal lymph node currently measures 1.4 x 1.5 cm compared with 2 x 2 cm. The precarinal lymph no de measures 1.6 x 1.5 cm this compares to 1.9 x 1.6 cm. Thyroid gland: There is a stable 0.5 cm hypodense nodule in the right thyroid gland. No follow-up is recommended. Pleura: No effusion or pneumothorax. Heart: The heart is stable in size. Coronary artery calcification. No pericardial effusion. Aorta: The ascending aorta measures 4.2 x 4.3 cm. Atherosclerosis. Upper abdomen: There again seen several hypodensities in the liver. Several of these are too small for further characterization but may reflect cysts. An incompletely imaged right renal cyst is prese nt. Lymph nodes: Please see the above discussion. Bones: Postsurgical changes are seen in the lower cervical spine. Degenerative changes are present t hroughout the thoracic spine. There are stable lucencies in the thoracic spine and sternum. This ma y reflect treatment. No sclerotic lesions are seen. Tubes, Catheters, and Lines: The tip of the patient's indwelling catheter is in good position at the cavoatrial junction. Soft tissues: Mild gynecomastia. IMPRESSION: 1. Interval improvement in the nodular infiltrates in the left lingula and left lower lobe. 2. Interval decrease in size and mediastinal adenopathy. RADIATION DOSE DELIVERED: 443.9mGy.cm Total DLP DATA REPOSITORY: All CT scans at this facility are submitted to the National Radiology Data Registry (NRDR) Dose Index Registry (DIR) with the [employer] (ACR). RADIATION OPTIMIZATION: All CT scans at this facility use at least one of these dose optimization te chniques: automated exposure control; mA and/or kV adjustment per patient size (includes targeted exa ms where dose is matched to clinical indication); or iterative reconstruction.
[2021-01-29] MEDS: Omnipaque 350 MG/ML 100 ML BTL 70 ML IJ (08:47)
[2021-01-29] MEDS: Normal Saline - Diluent 50 ML VIAL IV (08:48)
[2021-01-29] MEDS: Normal Saline Flush 10 ML SYR IVP (08:49)
== END 2021-01-29 02:34 ==
PROVIDERS: PCP Family Medicine; Visit Provider Nurse Practitioner Family
DX: C61 Malignant neoplasm of prostate (principal); C77.1 Secondary and unspecified malignant neoplasm of intrathoracic lymph nodes
CPT/HCPCS: 36591; 80053; 84153; 71260; 82565; 85025; J3490

== ENCOUNTER 2021-02-06 00:50 | Outpatient (RCR) | payer MEDICARE, SELFPAY ==
[2021-01-29] MEDS: Normal Saline Flush 10 ML SYR IVP (08:09)
[2021-01-29] MEDS: Heparin 500 UNITS/5 ML SYRINGE IV (08:09)
[2021-01-29 08:24] LABS: Abs Immature Grans 0.02 10^3/uL (0.0-0.06); Absolute Basophil Count 0.05 10^3/uL (0.0-0.2); Absolute Eosinophil Count 0.26 10^3/uL (0.0-0.7); Absolute Lymphocyte Count 1.06 10^3/uL (1.2-3.4); Absolute Monocyte Count 0.59 10^3/uL (0.1-0.8); Absolute Neutrophil Count 2.94 10^3/uL (1.2-6.7); Eosinophils % 5.3; HGB 10.3 g/dL (13.5-17.5); Immature Grans % 0.4; Lymphocytes % 21.5; MCH 32.3 pg (27.0-33.0); MCHC 34.3 % (32.0-36.0); MPV 8.3 fL (8.0-11.0); Neutrophils % 59.8; Nucleated RBC 0 %; Platelet Count 249 10^3/uL (130-400); RBC 3.19 10^6/uL (4.36-5.78); RDW 13.9 % (11.8-14.1); RDW-SD 48.1 fL; WBC 4.92 10^3/uL (4.4-10.8)
[2021-01-29 08:42] LABS: ALT 19 U/L (16-63); AST 23 U/L (15-37); Albumin 3.1 g/dL (3.4-5.0); Alkaline Phosphatase 74 U/L (46-116); Anion Gap 6.2 mmol/L (3-11); BUN 10 mg/dL (7-18); Bilirubin, Total 0.4 mg/dL (0.2-1.0); CO2 28.8 mmol/L (21.0-32.0); Calcium 8.5 mg/dL (8.5-10.1); Chloride 102 mmol/L (98-107); Glucose 154 mg/dL (74-106); Sodium 137 mmol/L (136-145); Total Protein 6.5 g/dL (6.4-8.2)
[2021-01-29 08:46] LABS: Potassium 2.9 mmol/L (3.5-5.1)
[2021-01-30 12:45] LABS: PSA, Ultrasensitive 8.8 ng/mL (<= 7.2)
[2021-02-06] MEDS: Normal Saline Flush 10 ML SYR IVP (12:19)
[2021-02-06 12:51] LABS: Abs Immature Grans 0.02 10^3/uL (0.0-0.06); Absolute Basophil Count 0.08 10^3/uL (0.0-0.2); Absolute Eosinophil Count 0.23 10^3/uL (0.0-0.7); Absolute Lymphocyte Count 1.24 10^3/uL (1.2-3.4); Absolute Monocyte Count 0.69 10^3/uL (0.1-0.8); Absolute Neutrophil Count 2.91 10^3/uL (1.2-6.7); Basophils % 1.5; Eosinophils % 4.4; HCT 31.2 % (40.0-50.0); HGB 10.4 g/dL (13.5-17.5); Immature Grans % 0.4; MCH 31.7 pg (27.0-33.0); MCHC 33.3 % (32.0-36.0); MCV 95.1 fL (80-95); MPV 8.6 fL (8.0-11.0); Monocytes % 13.3; Neutrophils % 56.4; Nucleated RBC 0 %; Platelet Count 270 10^3/uL (130-400); RBC 3.28 10^6/uL (4.36-5.78); RDW 13.3 % (11.8-14.1); RDW-SD 46.8 fL; WBC 5.17 10^3/uL (4.4-10.8)
[2021-02-06 13:08] LABS: ALT 18 U/L (16-63); AST 30 U/L (15-37); Albumin 3.1 g/dL (3.4-5.0); Alkaline Phosphatase 75 U/L (46-116); Anion Gap 7.9 mmol/L (3-11); BUN 12 mg/dL (7-18); Bilirubin, Total 0.5 mg/dL (0.2-1.0); CO2 28.1 mmol/L (21.0-32.0); CREATININE 0.8 mg/dL (0.70-1.30); Calcium 8.7 mg/dL (8.5-10.1); Chloride 104 mmol/L (98-107); Glucose 118 mg/dL (74-106); Potassium 3.6 mmol/L (3.5-5.1); Sodium 140 mmol/L (136-145); Total Protein 6.6 g/dL (6.4-8.2)
[2021-02-07 14:59] LABS: PSA, Ultrasensitive 10.3 ng/mL (<= 7.2)
== END 2021-02-22 23:59 | disposition home or self-care (01) ==
LOC: INF 00:50
PROVIDERS: PCP Family Medicine; Visit Provider Internal Medicine Hematology & Oncology
DX: C61 Malignant neoplasm of prostate (principal); C78.00 Secondary malignant neoplasm of unspecified lung; Z45.2 Encounter for adjustment and management of vascular access device
CPT/HCPCS: 36591; 80053; 84153; 85025

== ENCOUNTER 2021-03-20 00:49 | Outpatient (RCR) | payer MEDICARE, SELFPAY ==
[2021-02-27] MEDS: Normal Saline Flush 10 ML SYR IVP (09:37)
[2021-02-27 09:45] LABS: Abs Immature Grans 0.04 10^3/uL (0.0-0.06); Absolute Basophil Count 0.05 10^3/uL (0.0-0.2); Absolute Eosinophil Count 0.04 10^3/uL (0.0-0.7); Absolute Neutrophil Count 7.18 10^3/uL (1.2-6.7); Basophils % 0.6; Eosinophils % 0.5; HCT 31.7 % (40.0-50.0); HGB 10.5 g/dL (13.5-17.5); Immature Grans % 0.5; Lymphocytes % 9.2; MCH 31.7 pg (27.0-33.0); MCHC 33.1 % (32.0-36.0); MCV 95.8 fL (80-95); MPV 8.7 fL (8.0-11.0); Monocytes % 6.9; Neutrophils % 82.3; Nucleated RBC 0 %; Platelet Count 219 10^3/uL (130-400); RBC 3.31 10^6/uL (4.36-5.78); RDW 13.2 % (11.8-14.1); RDW-SD 46.4 fL; WBC 8.71 10^3/uL (4.4-10.8)
[2021-02-27 09:57] LABS: ALT 22 U/L (16-63); AST 25 U/L (15-37); Albumin 3.3 g/dL (3.4-5.0); Alkaline Phosphatase 64 U/L (46-116); Anion Gap 7.2 mmol/L (3-11); BUN 13 mg/dL (7-18); Bilirubin, Total 0.4 mg/dL (0.2-1.0); CO2 29.8 mmol/L (21.0-32.0); CREATININE 0.8 mg/dL (0.70-1.30); Calcium 8.7 mg/dL (8.5-10.1); Chloride 103 mmol/L (98-107); Glucose 115 mg/dL (74-106); Potassium 3.7 mmol/L (3.5-5.1); Sodium 140 mmol/L (136-145); Total Protein 6.5 g/dL (6.4-8.2)
[2021-02-28 13:45] LABS: PSA, Ultrasensitive 11.6 ng/mL (<= 7.2)
[2021-03-20] MEDS: Normal Saline Flush 10 ML SYR IVP (10:10)
[2021-03-20 10:41] LABS: Abs Immature Grans 0.03 10^3/uL (0.0-0.06); Absolute Basophil Count 0.06 10^3/uL (0.0-0.2); Absolute Eosinophil Count 0.07 10^3/uL (0.0-0.7); Absolute Lymphocyte Count 1.44 10^3/uL (1.2-3.4); Absolute Monocyte Count 0.78 10^3/uL (0.1-0.8); Absolute Neutrophil Count 3.45 10^3/uL (1.2-6.7); Eosinophils % 1.2; HCT 30.9 % (40.0-50.0); HGB 10.4 g/dL (13.5-17.5); Immature Grans % 0.5; Lymphocytes % 24.7; MCH 31.8 pg (27.0-33.0); MCHC 33.7 % (32.0-36.0); MCV 94.5 fL (80-95); MPV 8.9 fL (8.0-11.0); Monocytes % 13.4; Neutrophils % 59.2; Nucleated RBC 0 %; Platelet Count 219 10^3/uL (130-400); RBC 3.27 10^6/uL (4.36-5.78); RDW 13.3 % (11.8-14.1); RDW-SD 46.2 fL; WBC 5.83 10^3/uL (4.4-10.8)
[2021-03-20 10:55] LABS: ALT 23 U/L (16-63); AST 25 U/L (15-37); Albumin 3.3 g/dL (3.4-5.0); Alkaline Phosphatase 76 U/L (46-116); Anion Gap 8.7 mmol/L (3-11); BUN 23 mg/dL (7-18); Bilirubin, Total 0.4 mg/dL (0.2-1.0); CO2 28.3 mmol/L (21.0-32.0); Calcium 8.4 mg/dL (8.5-10.1); Chloride 104 mmol/L (98-107); Glucose 132 mg/dL (74-106); Potassium 3.6 mmol/L (3.5-5.1); Sodium 141 mmol/L (136-145); Total Protein 6.3 g/dL (6.4-8.2)
[2021-03-21 11:44] LABS: PSA, Ultrasensitive 10.3 ng/mL (<= 7.2)
== END 2021-03-24 23:59 | disposition home or self-care (01) ==
LOC: INF 00:49
PROVIDERS: PCP Family Medicine; Visit Provider Internal Medicine Hematology & Oncology
DX: C61 Malignant neoplasm of prostate (principal); C78.00 Secondary malignant neoplasm of unspecified lung
CPT/HCPCS: 36591; 80053; 84153; 85025

== ENCOUNTER 2021-04-10 02:33 | Outpatient (RCR) | payer MEDICARE, SELFPAY ==
[2021-04-10] MEDS: Normal Saline Flush 10 ML SYR IVP (09:39)
[2021-04-10 09:52] LABS: Abs Immature Grans 0.02 10^3/uL (0.0-0.06); Absolute Basophil Count 0.05 10^3/uL (0.0-0.2); Absolute Eosinophil Count 0.08 10^3/uL (0.0-0.7); Absolute Lymphocyte Count 1.61 10^3/uL (1.2-3.4); Absolute Monocyte Count 0.86 10^3/uL (0.1-0.8); Basophils % 0.9; Eosinophils % 1.4; HCT 30.8 % (40.0-50.0); HGB 10.4 g/dL (13.5-17.5); Immature Grans % 0.4; Lymphocytes % 28.6; MCH 32.4 pg (27.0-33.0); MCHC 33.8 % (32.0-36.0); MPV 8.5 fL (8.0-11.0); Monocytes % 15.3; Neutrophils % 53.4; Nucleated RBC 0 %; Platelet Count 206 10^3/uL (130-400); RBC 3.21 10^6/uL (4.36-5.78); RDW 13.8 % (11.8-14.1); RDW-SD 48.7 fL; WBC 5.62 10^3/uL (4.4-10.8)
[2021-04-10 10:10] LABS: ALT 24 U/L (16-63); AST 28 U/L (15-37); Albumin 3.3 g/dL (3.4-5.0); Alkaline Phosphatase 62 U/L (46-116); Anion Gap 7.7 mmol/L (3-11); BUN 19 mg/dL (7-18); Bilirubin, Total 0.5 mg/dL (0.2-1.0); CO2 27.3 mmol/L (21.0-32.0); CREATININE 0.9 mg/dL (0.70-1.30); Calcium 8.5 mg/dL (8.5-10.1); Chloride 104 mmol/L (98-107); Glucose 135 mg/dL (74-106); Potassium 3.3 mmol/L (3.5-5.1); Sodium 139 mmol/L (136-145); Total Protein 6.2 g/dL (6.4-8.2)
== END 2021-04-24 23:59 | disposition home or self-care (01) ==
LOC: INF 02:33
PROVIDERS: PCP Family Medicine; Visit Provider Internal Medicine Hematology & Oncology
DX: C61 Malignant neoplasm of prostate (principal); C78.00 Secondary malignant neoplasm of unspecified lung; Z45.2 Encounter for adjustment and management of vascular access device
CPT/HCPCS: 36591; 80053; 84153; 85025

== ENCOUNTER 2021-05-15 14:00 | Outpatient (RCR) | payer MEDICARE, SELFPAY ==
[2021-05-08] MEDS: Normal Saline Flush 10 ML SYR IVP (09:42)
[2021-05-08 09:55] LABS: Abs Immature Grans 0.07 10^3/uL (0.0-0.06); HCT 30.1 % (40.0-50.0); HGB 10.3 g/dL (13.5-17.5); MCH 31.8 pg (27.0-33.0); MCHC 34.2 % (32.0-36.0); MCV 92.9 fL (80-95); MPV 8.4 fL (8.0-11.0); Nucleated RBC 0 %; Platelet Count 333 10^3/uL (130-400); RBC 3.24 10^6/uL (4.36-5.78); RDW 13.3 % (11.8-14.1); RDW-SD 45.5 fL; WBC 13.55 10^3/uL (4.4-10.8)
[2021-05-08 10:23] LABS: ALT 17 U/L (16-63); AST 44 U/L (15-37); Alkaline Phosphatase 114 U/L (46-116); Anion Gap 12.6 mmol/L (3-11); BUN 24 mg/dL (7-18); Bilirubin, Total 0.9 mg/dL (0.2-1.0); CO2 25.4 mmol/L (21.0-32.0); CREATININE 1.2 mg/dL (0.70-1.30); Calcium 9.7 mg/dL (8.5-10.1); Chloride 93 mmol/L (98-107); Estimated GFR 57.96 (mL/min/1.73m2); Glucose 143 mg/dL (74-106); Potassium 3.6 mmol/L (3.5-5.1); Sodium 131 mmol/L (136-145); Total Protein 7.2 g/dL (6.4-8.2)
[2021-05-08 11:36] LABS: Absolute Neutrophil Count 11.52 10^3/uL (1.2-6.7)
[2021-05-08 11:37] LABS: Absolute Lymphocyte Count 0.54 10^3/uL (1.2-3.4); Absolute Monocyte Count 1.49 10^3/uL (0.1-0.8)
[2021-05-08 11:38] LABS: Diff Comment Manual Differential; RBC Morphology Normal
[2021-05-11 09:43] LABS: PSA, Ultrasensitive 31.3 ng/mL (<= 7.2)
[2021-05-15] MEDS: Normal Saline Flush 10 ML SYR IVP (14:19)
[2021-05-15 14:41] LABS: Absolute Basophil Count 0.04 10^3/uL (0.0-0.2); Absolute Eosinophil Count 0.05 10^3/uL (0.0-0.7); Absolute Lymphocyte Count 1.35 10^3/uL (1.2-3.4); Absolute Neutrophil Count 7.61 10^3/uL (1.2-6.7); Basophils % 0.4; Eosinophils % 0.5; HCT 33.2 % (40.0-50.0); HGB 11.1 g/dL (13.5-17.5); Lymphocytes % 13.2; MCH 31.7 pg (27.0-33.0); MCHC 33.4 % (32.0-36.0); MCV 94.9 fL (80-95); MPV 8.3 fL (8.0-11.0); Monocytes % 10.7; Neutrophils % 74.2; Nucleated RBC 0 %; Platelet Count 409 10^3/uL (130-400); RDW 13.8 % (11.8-14.1); RDW-SD 47.5 fL; WBC 10.25 10^3/uL (4.4-10.8)
[2021-05-15 14:53] LABS: ALT 22 U/L (16-63); AST 46 U/L (15-37); Albumin 2.7 g/dL (3.4-5.0); Alkaline Phosphatase 121 U/L (46-116); Anion Gap 13.2 mmol/L (3-11); BUN 17 mg/dL (7-18); Bilirubin, Total 0.6 mg/dL (0.2-1.0); CO2 22.8 mmol/L (21.0-32.0); CREATININE 1.2 mg/dL (0.70-1.30); Chloride 97 mmol/L (98-107); Estimated GFR 57.96 (mL/min/1.73m2); Glucose 152 mg/dL (74-106); Potassium 3.3 mmol/L (3.5-5.1); Sodium 133 mmol/L (136-145)
== END 2021-05-25 23:59 | disposition home or self-care (01) ==
LOC: INF 14:00
PROVIDERS: PCP Family Medicine; Visit Provider Internal Medicine Hematology & Oncology
DX: C61 Malignant neoplasm of prostate (principal); C78.00 Secondary malignant neoplasm of unspecified lung; Z45.2 Encounter for adjustment and management of vascular access device
CPT/HCPCS: 36591; 80053; 84153; 85025

== ENCOUNTER 2021-06-01 02:08 | Outpatient (CLI) | payer MEDICARE, SELFPAY ==
[2021-06-01] MEDS: Omnipaque 350 MG/ML 100 ML BTL IJ (07:55)
--- NOTE | 2021-06-01 07:57 | DI.CT_ITS ---
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 TECHNIQUE: Multi planar reconstructions were performed. CONTRAST MATERIAL: Omnipaque 350; 75 cc COMPARISON: CT CT CHEST W from 10/20/[address] CHEST W from 01/29/2021 FINDINGS: CHEST: LUNGS: There has been further deterioration in the appearance of the left lung. There is increased i nfiltrate in the left upper lobe, not previously present. There is also a noncalcified nodule measur ing 8 by 7 millimeters evident intimately associated the major fissure at the aortic arch level, not previously present. Other nodular infiltrates below this level are again noted and there is increasi ng infiltrate in the left lower lobe as well as in the left upper lobe and both superior and inferior lingular segments of the left lung as well as increasing infiltrate in the left lower lobe basal seg ments. No pleural effusion No new findings in the left mainstem bronchus. The opposite-right lung remains unchanged with only mild increased markings in the right lower lobe e vident and also no pleural effusion. Right mainstem bronchus is unremarkable. Distal tip of the right subclavian Port-A-Cath is at the lower SVC. MEDIASTINUM: Mild further increase in mediastinal adenopathy, with new enlarged precarinal lymph node s. Right paratracheal adenopathy again noted. Subcarinal adenopathy is again noted. Adenopathy in the anterior left mediastinal fat as increased. Also small lymph nodes more evident in the left hilu m on the present study. Right hilum remains unremarkable. No retrocrural adenopathy. No supraclavi cular nor axillary adenopathy evident. Thyroid gland size is normal. Small nodule in the right thyr oid lobe is unchanged. CARDIAC: Heart size is normal. There is no pericardial effusion.The ascending thoracic aorta is enla rged, measuring 4 cm diameter. No dissection. Diameter of the aortic arch and descending thoracic a baron are upper normal for this advanced age group. VISUALIZED UPPER ABDOMEN:There are no significant adrenal masses. Right kidney cysts noted. Multipl e hypodensities in the liver are again noted which may be cysts. Remain stable. OSSEOUS: No significant osseous lesions.Fusion hardware noted in the lower cervical spine. IMPRESSION: 1. There has been further deterioration in the appearance of the left lung field when compared to the most recent scan of 01/29/2021. There is increasing infiltrate in the left lung, both confluent and nodular. No associated pleural effusion. No new right lung findings. 2. Increasing mediastinal and left hilar adenopathy. Right hilum remains unremarkable. 3. Enlarged ascending thoracic aorta with diameter 4 cm. No dissection evident. RADIATION DOSE DELIVERED: 410.66mGy.cm Total DLP DATA REPOSITORY: All CT scans at this facility are submitted to the National Radiology Data Registry (NRDR) Dose Index Registry (DIR) with the [employer] (ACR). RADIATION OPTIMIZATION: All CT scans at this facility use at least one of these dose optimization te chniques: automated exposure control; mA and/or kV adjustment per patient size (includes targeted exa ms where dose is matched to clinical indication); or iterative reconstruction.
== END 2021-06-01 02:28 ==
PROVIDERS: PCP Family Medicine; Visit Provider Nurse Practitioner Family
DX: C61 Malignant neoplasm of prostate (principal); C78.02 Secondary malignant neoplasm of left lung; C77.1 Secondary and unspecified malignant neoplasm of intrathoracic lymph nodes; R59.0 Localized enlarged lymph nodes; I77.810 Thoracic aortic ectasia
CPT/HCPCS: 71260; J3490

== ENCOUNTER 2021-06-01 02:52 | Outpatient (RCR) | payer MEDICARE, SELFPAY ==
[2021-06-01] MEDS: Normal Saline Flush 10 ML SYR IVP (07:40)
[2021-06-01] MEDS: Heparin 500 UNITS/5 ML SYRINGE IV (07:40)
== END 2021-06-22 23:59 | disposition home or self-care (01) ==
LOC: INF 02:52
PROVIDERS: PCP Family Medicine; Visit Provider Internal Medicine Hematology & Oncology
DX: Z45.2 Encounter for adjustment and management of vascular access device (principal)
CPT/HCPCS: 96523

== ENCOUNTER 2021-07-12 06:43 | Emergency (ER) | payer MEDICARE, SELFPAY ==
[2021-07-12] VITALS (60 sets, daily range): BP systolic 84–144; BP diastolic 45–93; PULSE 78–132; RESP 15–37; TEMP 36.6–38.7; O2SAT 84–97
--- NOTE | 2021-07-12 06:30 | RT.EKG_ITS ---
APPROVED REPORT Exam: Resting ECG Reason for Exam: fall Patient Location: E HR:87 bpm ECG Measurements Heart Rate 87 AXIS AR 177 P 5 QRSd 79 QRS -8 QT 377 T 49 QTc 455 Conclusion Sinus rhythm...normal P axis, V-rate 60- 99 Physician: No significant ST elevation, less than 1 millimeter depression in V2 V3 and V4. No T wave inversions. These appear to be new changes compared to prior EKG on 08/18/2020. No STEMI.
--- NOTE | 2021-07-12 06:45 | DI.CT_ITS ---
Exam(s) CT HEAD FACIAL WO EXAM: CT HEAD FACIAL WO CLINICAL HISTORY: fell, hit head and face/nose. TECHNIQUE: Imaging Protocol: Axial computed tomography images with coronal and sagittal reformatted images were created and reviewed COMPARISON: No exams were available for comparison FINDINGS: BRAIN: There are no skull fractures nor fluid in the visualized paranasal sinuses. There is no evidence of intracranial hemorrhage, mass effect, or shift of midline structures. There are no extra-axial fluid collections. The ventricles are not enlarged or shifted and there is no blo od within the ventricular system nor within the basal cisterns. Is mild bilateral periventricular hypodensity consistent with chronic small vessel disease. No colt torial infarct evident. MAXILLOFACIAL CT SCAN: There is no evidence of facial fractures nor fluid in the visualized paranasal sinuses. There is no evidence of orbital blowout fracture. In the lower aspect of the field of view of this study there is fusion hardware in the cervical spine noted. IMPRESSION: No acute intracranial findings on this noninfused CT scan of the brain. No evidence of facial bone fractures nor orbital fractures. RADIATION DOSE DELIVERED: 1,098.65mGy.cm Total DLP DATA REPOSITORY: All CT scans at this facility are submitted to the National Radiology Data Registry (NRDR) Dose Index Registry (DIR) with the [employer] (ACR). RADIATION OPTIMIZATION: All CT scans at this facility use at least one of these dose optimization te chniques: automated exposure control; mA and/or kV adjustment per patient size (includes targeted exa ms where dose is matched to clinical indication); or iterative reconstruction.
--- NOTE | 2021-07-12 06:51 | DI.CT_ITS ---
Exam(s) CT CHEST PE ABD PELVIS W EXAM: CT CHEST PE ABD PELVIS W CLINICAL HISTORY: active cancer, sob, cough, hypoxic, fall. TECHNIQUE: Imaging Protocol: Axial CT angiography was performed with multi-slice acquisition and m ulti-planar and/or 3D reconstructions. CONTRAST MATERIAL: Intravenous: Omnipaque 350 Contrast volume:100 ml Oral: None COMPARISON: CT CT CHEST/ABD/PEL W from 06/06/2020 FINDINGS: CHEST: PULMONARY ARTERIES: There are no intra-arterial filling defects to suggest the presence of acute pulm onary emboli. LUNGS: There is no evidence of pulmonary infarction.However, there is now infiltrate throughout the l eft lung involving left upper lobe and superior lingular segment. Lingular segment infiltrate exhibi ts hepatitization or mass. Also infiltrate involving left lower lobe. No associated pleural effusio n. No infiltrate evident in the right lung. No pleural effusions on either side. MEDIASTINUM: There is prominent bilateral hilar and mediastinal adenopathy. Prominent subcarinal nuno nopathy. This has significantly increased when compared to 06/06/2020. Thyroid gland exhibits normal size. Contains a small sub cm nodule in the anterior right lobe. CARDIAC: Heart size is normal. There is no pericardial effusion. There is no significant shift of t he interventricular septum.Caliber of the thoracic aorta is upper normal. OSSEOUS: No significant osseous lesions.. ABDOMEN: There is no ascites. LIVER: In addition to previously documented multiple small hepatic cysts, there is now an abscess in the right hepatic lobe adjacent to the gallbladder fossa, this gas containing abscess measuring 4.6 c m by 3.3 cm. There is some mildly dilated intrahepatic ducts. CBD diameter is upper normal. GALLBLADDER/BILIARY: Gallbladder is slightly distended but does not appear to contain calculi. Never theless, there is faint haziness in the pericholecystic fat, suspicious for acute cholecystitis. PANCREAS: No evidence of pancreatic mass nor dilatation of the pancreatic duct. SPLEEN: Spleen is not enlarged. There are no intrasplenic lesions. Splenic and portal veins are wyatt nt. ADRENALS: There are no significant adrenal masses. KIDNEYS:Left kidney unremarkable. There is an exophytic cyst in superior pole region of the right ki dney which measures 3.7 by 2.2 cm. A smaller cyst is noted in the inferior pole of the right kidney measuring 1.2 x 1.1 cm.. No solid renal masses. No renal abscess. No calculi. No hydronephrosis. Retroaortic left renal ve in is incidentally noted. ABDOMINAL AORTA: Abdominal aorta is not enlarged. Celiac and superior mesenteric arteries are patent as is the inferior mesenteric artery. No obvious tight stenosis in the renal arteries. LYMPH NODES: There is no retroperitoneal or para-aortic adenopathy. ABDOMINAL WALL/GI: There is air-gas in the lateral right chest wall associated with the rib suspiciou s for abscess. There appears to be some air within the marrow cavity of the rib at this level. No evidence of significant anterior abdominal wall hernia. No bowel obstruction. PELVIS: LYMPH NODES: There is no intrapelvic nor inguinal adenopathy. GI: No evidence of appendicitis.No evidence of sigmoid diverticulitis. URINARY BLADDER: No calculi nor masses evident REPRODUCTIVE: Prostate tiny or surgically absent. No surgical clips in this region. OSSEOUS: Lumbar spine fusion surgery noted. Fusion hardware noted in the cervical spine. There is calcification in lung tuna ligament. There is height loss of T11 vertebral body which has increased from previous and there is dehiscence of the a nterior cortex. Suspect malignant or in flexures involvement of this vertebral body. IMPRESSION: 1. No evidence of acute pulmonary emboli but there is increased confluent infiltrate throughout the l eft lung as described above. Possible mass in the lingular segment with surrounding lymphatic involv ement of the left lung. There is also a 1.3 x 1.2 cm nodule in left upper lung contiguous with the m ajor fissure and presently containing a small central lucency, consistent with central necrosis. 2. There are no pleural effusions.However, there is now prominent bilateral hilar and mediastinal nuno nopathy evident. 3. There is a 4.6 x 3.3 cm abscess in the right hepatic lobe. This is immediately adjacent to the ga llbladder. Also mild gallbladder wall edema (no radiopaque calculi). In addition, there is air-gas seen within the somewhat edematous edematous tissues of the right abdominal wall adjacent to the infe rior aspect of right hepatic lobe. Suspicious for abscess. This also appears to possibly involve th e rib at this level. There appears to be gas within the right 8th rib at this level. 4. There is loss of height and cortical dehiscence in the T10 vertebral body now evident, consistent with either infection or neoplastic involvement. 5. Evidence of fusion surgery in the L5-S1 level. Mild anterolisthesis L5 upon S1. No abscess at th is level. No obvious abscess at this level. Study 1st read by [facility] Final report called by myself to ER physician 07/12/2021 at 13:58 p.m. RADIATION DOSE DELIVERED: 1,339.6mGy.cm Total DLP DATA REPOSITORY: All CT scans at this facility are submitted to the National Radiology Data Registry (NRDR) Dose Index Registry (DIR) with the [employer] (ACR). RADIATION OPTIMIZATION: All CT scans at this facility use at least one of these dose optimization te chniques: automated exposure control; mA and/or kV adjustment per patient size (includes targeted exa ms where dose is matched to clinical indication); or iterative reconstruction.
--- NOTE | 2021-07-12 06:56 | ED.GENADUL_ITS ---
Discharge Plan Disposition Patient Disposition: STILL A PATIENT Condition: Stable Discharge Details Clinical Impression: Fall, Acute dehydration Primary Care Provider: Kenisha Alves ED Provider: Khai Estevez Home Meds and New Rx's Prescriptions: No Action fexofenadine [Allergy Relief (fexofenadine)] 180 mg tablet 180 mg PO DAILY PRN0RF Rx Instructions: one a day until rash is gone atorvastatin 20 mg tablet 20 mg PO QHS Qty: 90 3RF potassium chloride 10 mEq capsule, extended release 10 meq PO BID Qty: 180 5RF fluticasone propionate 50 mcg/actuation spray,suspension 1 - 2 spray intranasal DAILY Qty: 15.8 5RF Rx Instructions: administer into each nostril acetaminophen [Tylenol] 325 MG tablet 1 - 2 tab PO PRN 0RF Rx Instructions: Every 4-6 hours PRN. aspirin [Aspirin Low-Strength] 81 MG tablet,chewable 81 mg PO DAILY Qty: 1 12RF multivitamin [Daily Vitamin] 1 EACH tablet 1 ea PO DAILY 0RF capsaicin 60 GM cream 1 applic Topical DAILY 0RF Rx Instructions: Dr. Cottrell [facility] 07/22/16 magnesium oxide 400 MG tablet 400 mg PO DAILY 0RF Rx Instructions: 250mg BID per 10/08/16 [facility] note-LH calcium carbonate-vitamin D3 [Calcium 600 + D(3)] 1 EACH tablet 1 ea PO BID 0RF Rx Instructions: [place] [facility] [place] [facility] [place] omega 8-oze-wmr-fish oil [Fish Oil] 1,000 mg (120 mg-180 mg) capsule 2 cap PO DAILY 0RF Label Comments: Per [facility] naproxen 250 mg tablet 250 mg PO BID PRN0RF Label Comments: Per [facility] atenolol-chlorthalidone 100-25 mg tablet 1 tab PO DAILY Qty: 90 5RF tramadol 50 mg tablet 100 mg PO Q8H PRN (Reason: pain) Qty: 180 5RF Rx Instructions: metastatic prostate cancer omeprazole 20 mg capsule,delayed release(/EC) 20 mg PO DAILY Qty: 90 3RF Medical Decision Making This is an 81-year-old male with a past medical history of back prostate cancer with metastasis, diabetes mellitus, hypertension, who presents today via EMS after a fall. Patient fell this evening while trying to get back to bed, and he felt notably weak EMS was called to help him get back up. In addition to that, he has also had vomiting for the last 3 days. But denies any blood. He denies any current abdominal pain. He denies any diabetes. Additionally he will have admits to cough for the last 1 to 2 weeks but not short of breath. He denies any current chest pain no. He did fall because of scraped his right elbow and did hit his nose He denies any other significant trauma. No other complaints time. Patient states he received chemotherapy last 2 weeks ago. He is not in any flexion. He states he is doing drinking much little to normal over the last few days and feels notably dehydrated. Physical exam demonstrates an abrasion over the nose and right elbow. No focal neurologic deficits. No other significant tenderness of the chest or abdomen. Due to the patient's age, his persistent vomiting over the last 3 days, as well as his cough and shortness of breath I do feel that further imaging is indicated. We will get a CT scan of the head and face secondary to the trauma to the area. Further imaging of the chest and abdomen which is other complaints. We will rehydrate the patient liter of normal saline, evaluate for cardiac etiology, monitor closely and reassess. EKG 6: [address] elevation, less than 1 millimeter depression in V2 V3 and V4. No T wave inversions. These appear to be new changes compared to prior EKG on 08/18/2020. No STEMI. HPI General Date/Time Provider Initiated Documentation: 07/12/21 06:55 . HPI Narrative: This is an 81-year-old male with a past medical history of back prostate cancer with metastasis, diabetes mellitus, hypertension, who presents today via EMS after a fall. Patient fell this evening while trying to get back to bed, and he felt notably weak EMS was called to help him get back up. In a ddition to that, he has also had vomiting for the last 3 days. But denies any blood. He denies any current abdominal pain. He denies any diabetes. Additionally he will have admits to cough for the last 1 to 2 weeks but not short of breath. He denies any current chest pain no. He did fall because of scraped his right elbow and did hit his nose He denies any other significant trauma. No other complaints time. Patient states he received chemotherapy last 2 weeks ago. He is not in any flexion. He states he is doing drinking much little to normal over the last few days and feels notably dehydrated. Related Data Home Medications Medication Instructions Recorded Confirmed acetaminophen 325 mg tablet 1 - 2 tab PO PRN 07/10/12 07/12/21 (Tylenol) aspirin 81 mg chewable tablet 81 mg PO DAILY #1 tab-cap 08/31/13 07/12/21 (Aspirin Low-Strength) multivitamin (Daily Vitamin) 1 ea PO DAILY 11/23/13 07/12/21 capsaicin 0.025 % topical cream 1 applic TOPICAL DAILY script 07/22/16 07/12/21 magnesium oxide 400 mg (241.3 mg 400 mg PO DAILY 08/27/16 07/12/21 magnesium) tablet calcium carbonate 600 mg-vitamin 1 ea PO BID 03/10/17 07/12/21 D3 5 mcg (200 unit) tablet (Calcium 600 + D(3)) naproxen 250 mg tablet 250 mg PO BID PRN 07/31/19 07/12/21 omega 0-wfi-nzp-fish oil 1,000 mg 2 cap PO DAILY cap 07/31/19 07/12/21 (120 mg-180 mg) capsule (Fish Oil) fexofenadine 180 mg tablet 180 mg PO DAILY PRN tab 12/17/19 07/12/21 (Allergy Relief (fexofenadine)) fluticasone propionate 50 1 - 2 spray INTRANASAL DAILY #15.8 04/08/20 07/12/21 mcg/actuation nasal ml spray,suspension atorvastatin 20 mg tablet 20 mg PO QHS #90 tab 08/18/20 07/12/21 potassium chloride 10 mEq 10 meq PO BID #180 cap 08/18/20 07/12/21 capsule,extended release atenolol 100 mg-chlorthalidone 25 1 tab PO DAILY #90 tab 11/03/20 07/12/21 mg tablet tramadol 50 mg tablet 100 mg PO Q8H PRN #180 tab 05/07/21 07/12/21 omeprazole 20 mg capsule,delayed 20 mg PO DAILY #90 cap 05/26/21 07/12/21 release Previous Rx's Medication Instructions Recorded fluticasone propionate 50 1 - 2 spray INTRANASAL DAILY #15.8 04/08/20 mcg/actuation nasal ml spray,suspension atorvastatin 20 mg tablet 20 mg PO QHS #90 tab 08/18/20 potassium chloride 10 mEq 10 meq PO BID #180 cap 08/18/20 capsule,extended release atenolol 100 mg-chlorthalidone 25 1 tab PO DAILY #90 tab 11/03/20 mg tablet tramadol 50 mg tablet 100 mg PO Q8H PRN #180 tab 05/07/21 omeprazole 20 mg capsule,delayed 20 mg PO DAILY #90 cap 05/26/21 release Allergies Allergy/AdvReac Type Severity Reaction Status Date / Time amlodipine Allergy Severe swelling Verified 04/27/21 14:03 of face losartan AdvReac Intermediate Jittery Verified 04/27/21 14:03 hydrochlorothiazide AdvReac Unknown Verified 04/27/21 14:03 lisinopril AdvReac cough Verified 04/27/21 14:03 General Stated Complaint: Nausea/Vomit/Diar BRANDON: 3 Review of Systems All systems reviewed & are unremarkable except as noted in HPI and below PFSH All Active Problems (Updated 07/12/21 @ 07:04 by Khai Estevez DO) Fall (Acute) Acute dehydration (Acute) DNR (do not resuscitate) (Acute) Physician orders for life-sustaining treatment (POLST) form indicates patient wish for [id number] status (Acute) Diabetes mellitus (Chronic) pre diabetes; on no meds 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 Cottrell Lung metastasis Essential hypertension (Acute 08/10/13) FRS 30 % Medical History Age-related nuclear cataract of left eye (10/09/15) Age-related nuclear cataract of right eye (10/09/15) Allergic rhinitis Back pain Benign neoplasm of colon (05/03/11) 2007 [facility] [place]; colonoscopy 2012 Dr Nova [facility] [place] Carpal tunnel syndrome (09/19/13) [facility] [place] 09/14/13 Cerumen impaction Cervical spinal stenosis (09/15/17) Conductive hearing loss, external ear DDD (degenerative disc disease), cervical (09/15/17) Disorder of sacrum Elevated cholesterol Epistaxis (07/29/16) GERD (gastroesophageal reflux disease) HLD (hyperlipidemia) HTN (hypertension) Hypertriglyceridemia (11/06/15) TG 690, Cardiology and patient elect to treat IFG (impaired fasting glucose) IFG (impaired fasting glucose) (02/23/13) Lumbosacral spondylosis without myelopathy Prostate cancer Right hand weakness Sacroiliac joint dysfunction of right side Shoulder pain Skin lesion of right leg Surgical History S/P cervical discectomy (06/13/18) Anterior discectomy and instrumented fusion C5-6 S/P lumbar spinal fusion 1986 and 1989 S/P prostatectomy (~03/2003) Status post lumbar spinal fusion (~10/2005) C5 Family History Mother , age 91 Cancer Father , age 64 Cancer Sister No problems noted. Sister , age 43 Cancer Sister Diabetes Brother , age 70 Cancer Diabetes Brother No problems noted. Son No problems noted. Maternal Grandfather , age 72 No problems noted. Paternal Grandfather No problems noted. Maternal Grandmother , age 80 No problems noted. Paternal Grandmother , age 54 Diabetes Heart disease Social History Smoking/Tobacco Use Status: Never Second Hand Exposure: Yes Smoking risk assessment performed?: Yes Alcohol Intake: former Drug use: Never Caregiver/Support person: Yes Pets and animals: Yes Pets and animals: cat(s) Sexually active: No Do you think of yourself as: straight/heterosexual What is your relationship status?: How often do you talk on the phone with friends or family?: decline to answer How often do you get together with friends or relatives?: never How often do you attend taoist or yazdanism services?: decline to answer Do you belong to any clubs or organized social groups?: no Panel score (0-1 are the most socially isolated patients): 1 Debra/Shinto: None Seatbelt use: always Helmet use: No Drive intox or ride w/intox class b driver: No Do you feel safe at home: Yes Do you feel safe in your relationship?: Yes Victim of physical abuse: No Victim of emotional abuse: No Victim of sexual abuse: No Exam Narrative Exam Narrative: 1.Const: Well-nourished, Well-developed, appearing stated age 2.Eyes: PERRL, no conjunctival injection, and symmetrical lids. 3.ENT: Atraumatic external nose and ears. Notably dry MM. Neck: Symmetric, trachea midline, No thyromegaly. There is no evidence of raccoon eyes, vega sign, CSF rhinorrhea, mastoid tenderness, cranial crepitus, hemotympanum, exophthalmos, or hyphema. Patient demonstrates intact dentition with no signs of tooth avulsion or fracture, no signs of jaw deformity, no evidence of a LeFort's fracture, with an intact palate, nose and orbital region. He does have an abrasion over the bridge of his nose though. There is no evidence of a nasal septal hematoma. No proptosis. Jaw closes symmetrically. Airway is clear. 4.CVS: +S1/S2, No murmurs or gallops. Peripheral pulses 2+ and equal in all extremities. Brisk capillary refill in all extremities. 5.RESP: Unlabored respiratory effort. Clear to auscultation bilaterally. No wheezes rales or rhonchi 6.GI: Soft, Nontender/Nondistended, No hepatosplenomegaly. No guarding or rebound. 7.MSK: Normocephalic/Atraumatic, Extremities w/o deformity or ttp No cyanosis or clubbing, Normal movement of all extremities no cervical thoracic or lumbar spine tenderness to 8.Skin: Warm, Dry. Mild abrasion over the right lateral elbow. No bleeding. 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 Sensation grossly intact, no focal neurologic deficits. 10.Psych: (AAO) x3. Appropriate mood and affect Course Vital Signs Vital signs: Vital Signs Temperature 36.6 C 07/12/21 06:44 Pulse 90 07/12/21 06:44 Respiratory Rate 23 07/12/21 06:44 Blood Pressure 123/63 07/12/21 06:44 Pulse Oximetry 92 07/12/21 06:44 Temperature 36.6 C 07/12/21 06:44 Temperature Source Tympanic 07/12/21 06:44 Pulse 90 07/12/21 06:44 Respiratory Rate 23 07/12/21 06:44 Blood Pressure 123/63 07/12/21 06:44 Pulse Oximetry 92 07/12/21 06:44 Oxygen Delivery Method Room Air 07/12/21 06:44 Oxygen Flow Rate 0 07/12/21 06:44 Pain Level 0 07/12/21 06:44 Sign Out Sign Out Data: Sign Out Comment: Metastatic prostate cancer, follow-up today, 3 days of vomiting, weakness, cough. Follow-up on labs and imaging. Last updated by Khai Estevez DO at 07/12/21 07:04
[2021-07-12 07:07] LABS: Source Nasal/Nares
[2021-07-12] MEDS: Normal Saline 1,000 ML 1000 ML IV (07:10)
[2021-07-12 07:11] LABS: Abs Immature Grans 0.08 10^3/uL (0.0-0.06); Basophils % 0.1; HCT 28.7 % (40.0-50.0); HGB 9.6 g/dL (13.5-17.5); Immature Grans % 0.6; MCH 30.7 pg (27.0-33.0); MCHC 33.4 % (32.0-36.0); MCV 91.7 fL (80-95); MPV 8.9 fL (8.0-11.0); Monocytes % 8.4; Neutrophils % 85.9; Nucleated RBC 0 %; Platelet Count 185 10^3/uL (130-400); RBC 3.13 10^6/uL (4.36-5.78); RDW 13.8 % (11.8-14.1); RDW-SD 46.5 fL; WBC 14.13 10^3/uL (4.4-10.8)
[2021-07-12 07:24] LABS: Absolute Basophil Count 0.01 10^3/uL (0.0-0.2); Absolute Lymphocyte Count 0.71 10^3/uL (1.2-3.4); Absolute Monocyte Count 1.19 10^3/uL (0.1-0.8); Absolute Neutrophil Count 12.14 10^3/uL (1.2-6.7)
[2021-07-12 07:32] LABS: ALT 30 U/L (16-63); AST 116 U/L (15-37); Albumin 2.3 g/dL (3.4-5.0); Alkaline Phosphatase 122 U/L (46-116); Anion Gap 10.5 mmol/L (3-11); BUN 24 mg/dL (7-18); Bilirubin, Total 2.3 mg/dL (0.2-1.0); CO2 23.5 mmol/L (21.0-32.0); CREATININE 1.1 mg/dL (0.70-1.30); Calcium 8.3 mg/dL (8.5-10.1); Chloride 97 mmol/L (98-107); Glucose 158 mg/dL (74-106); Lipase 33 U/L (73-393); Potassium 3.5 mmol/L (3.5-5.1); Sodium 131 mmol/L (136-145); Total Protein 6.5 g/dL (6.4-8.2); Troponin I < 50 ng/L (<or=60)
[2021-07-12 07:43] LABS: COVID-19 PCR Negative (Negative)
[2021-07-12 07:56] LABS: Bilirubin, Direct 0.7 mg/dL (0.0-0.2)
[2021-07-12] MEDS: Omnipaque 350 MG/ML 100 ML BTL IJ (08:17)
[2021-07-12] MEDS: Normal Saline Flush 10 ML SYR IVP (08:18)
--- NOTE | 2021-07-12 08:31 | DI.VRAD_ITS ---
PROCEDURE INFORMATION: Exam: CT Head Without Contrast Exam date and time: 07/12/2021 7:49 AM Age: 80 years old Clinical indication: Injury or trauma; Other: Fell, hit head and face/nose; Blunt trauma (contusions or hematomas) TECHNIQUE: Imaging protocol: Computed tomography of the head without contrast. COMPARISON: NM BONE SCAN WHOLE BODY [facility] 07/04/2019 11:35 AM FINDINGS: Brain: No acute hemorrhage identified. No large territorial areas of hypoattenuation concerning for ischemic infarct identified. No intracranial mass effect. Mild cerebral atrophy consistent with patient's age. Subcortical and periventricular white matter hypoattenuation likely consistent with mild chronic microvascular ischemic disease. Cerebral ventricles: The ventricles are within normal limits. Paranasal sinuses: The visualized sinuses are unremarkable. Mastoid air cells: The visualized mastoid air cells are well aerated. Bones/joints: The osseous structures are intact. Soft tissues: Unremarkable. IMPRESSION: 1. No acute intracranial abnormality. 2. Mild chronic microvascular ischemic disease. PROCEDURE INFORMATION: Exam: CT Maxillofacial Without Contrast Exam date and time: 07/12/2021 7:49 AM Age: 80 years old Clinical indication: Injury or trauma; Other: Fell, hit head and face/nose; Blunt trauma (contusions or hematomas) TECHNIQUE: Imaging protocol: Computed tomography images of the face without contrast. COMPARISON: NM BONE SCAN WHOLE BODY [facility] 07/04/2019 11:35 AM FINDINGS: Orbital cavities: Orbits are normal. Globes are unremarkable. Bones/joints: Degenerative changes in the cervical spine. Partially visualized anterior cervical spinal fixation hardware noted. Multilevel bilateral neural foraminal narrowing noted. Degenerative changes in the temporomandibular joints. Paranasal sinuses: The paranasal sinuses are clear without fluid levels or mucosal thickening. Mastoid air cells: The visualized mastoid air cells are well aerated. Soft tissues: Unremarkable. Brain: The visualized brain parenchyma appears normal. IMPRESSION: 1. No maxillofacial injury identified. 2. Degenerative changes in the cervical spine and temporomandibular joints. Dictated and Authenticated by: Amadou Loco MD. Ordering:DEQUAN Ridley MD
[2021-07-12 08:43] LABS: Bilirubin Negative (Negative); Blood Small (Negative); Clarity Clear (Clear); Glucose Negative (Negative); Ketones Trace mg/dL (Negative); Leukocyte Esterase Negative (Negative); Nitrite Negative (Negative); Urobilinogen 0.2 EU/dL (Up TO 0.2); pH 5.5 (5-8)
[2021-07-12 08:55] LABS: Bacteria Negative HPF (Negative); C & S Indicated? No; Casts Negative LPF (Negative); Crystals Negative HPF (Negative); Epithelial Cells Few HPF (Negative); Mucus Moderate (Negative); RBC 0-2 HPF (0-2); WBC 0-2 HPF (0-5)
--- NOTE | 2021-07-12 09:01 | DI.VRAD_ITS ---
PROCEDURE INFORMATION: Exam: CTA Chest With Contrast Exam date and time: 07/12/2021 7:56 AM Age: 80 years old Clinical indication: Other: Active cancer, SOB, cough, hypoxic, fall TECHNIQUE: Imaging protocol: Computed tomographic angiography of the chest with contrast. 3D rendering (Not supervised by radiologist): MIP and/or 3D reconstructed images were created by the technologist. Contrast material: OMNIPAQUE 350; Contrast volume: 100 ml; Contrast route: INTRAVENOUS (IV); COMPARISON: CT CHEST PE CTA 01/08/2019 4:43 PM FINDINGS: Limitations: Image quality is degraded by artifact from the patient's arms, which were not elevated during imaging. Tubes, catheters and devices: Ventral right upper chest wall port. Pulmonary arteries: No filling defects in the central, lobar, or proximal segmental pulmonary arteries to suggest pulmonary emboli. Aorta: Normal caliber thoracic aorta without aneurysm or dissection. Mild atherosclerotic mural calcification. Lungs: There has been interval worsening of masslike consolidation in the lingula which is contiguous with confluent/coalescent alveolar opacities in the left lower lobe and posterior left upper lobe which radiate towards the hilum. There is extensive reticulonodular increased density throughout the left lower lobe and to a slightly lesser extent in the left lower lobe, also progressed/worsened since 06/01/2021. There is diffuse peribronchial soft tissue thickening throughout the left hemithorax. The appearance is consistent with interval worsening of extensive lymphangitic spread of tumor. There is a 1.2 cm solid nodule in the left upper lung which is inseparable from the superior aspect of the left major fissure (series 6, image 195), increased in size from 0.9 cm on 06/01/2021 and now contains a central lucency, suspected central necrosis. Pleural spaces: No pleural effusions. No pneumothorax. Heart: Heart size is normal. No pericardial effusion. Lymph nodes: There has been interval worsening/enlargement mediastinal and hilar lymphadenopathy since 06/01/2021. Some customer support representative short axis measurements include a 2.9 cm subcarinal lymph node which previously measured 1.5 cm, a 2 cm right hilar lymph node which previously measured 1 cm, and a 1.8 cm right hilar lymph node which previously measured 1.2 cm. There is diffuse peribronchovascular soft tissue thickening at the left hilum consistent with neoplastic infiltration. No pathologically enlarged axillary lymph nodes. Bones/joints: The bones are diffusely demineralized. There are bridging anterior endplate osteophytes throughout the thoracic spine compatible with diffuse idiopathic skeletal hyperostosis. There is a subacute mild anterior wedge deformity of the T11 vertebral body, not significantly changed. There is mild chronic loss of height of the T12 vertebral body. Soft tissues: Unremarkable. Other findings: None. IMPRESSION: 1. No evidence of pulmonary emboli. 2. Interval worsening/increase in extensive neoplastic infiltration of the left lung since 06/01/2021; see discussion above. 3. Interval worsening of mediastinal and right hilar lymphadenopathy since 06/01/2021. PROCEDURE INFORMATION: Exam: CT Angiography Abdomen With Contrast Exam date and time: 07/12/2021 7:56 AM Age: 80 years old Clinical indication: Other: Active cancer, SOB, cough, hypoxic, fall TECHNIQUE: Imaging protocol: Computed tomographic angiography images of the abdomen with intravenous contrast material. 3D rendering (Not supervised by radiologist): MIP and/or 3D reconstructed images were created by the technologist. Contrast material: OMNIPAQUE 350; Contrast volume: 100 ml; Contrast route: INTRAVENOUS (IV); COMPARISON: 1. CT CHEST/ABD/PEL W 06/06/2020 9:[address] CHEST PE CTA 01/08/2019 4:43 PM FINDINGS: Aorta: Normal caliber abdominal aorta with moderate atherosclerotic mural calcification. No dissection or aneurysm. Celiac trunk and mesenteric arteries: The celiac, superior mesenteric, and inferior mesenteric arteries are patent. No high-grade stenosis at the origins of the vessels. Renal arteries: Bilateral renal arteries are patent. There is atherosclerotic calcification of the left renal artery origin without high-grade stenosis. Liver: There is a new 4 cm x 3.1 cm x 3.3 cm lobulated subcapsular collection containing gas in the right hepatic lobe immediately adjacent to the gallbladder, most compatible with abscess. There are multiple small hypoattenuating foci scattered throughout the liver, some which are suspected to represent cysts though others measure 5 mm or less and are too small to characterize, not significantly changed. Gallbladder and bile ducts: There is new slight central intrahepatic biliary ductal dilatation. The common bile duct is mildly dilated, measuring up to 9 mm in diameter (previously 6 mm). The gallbladder is distended, and there is faint haziness the pericholecystic fat. The appearance raises suspicion for acute cholecystitis. Pancreas: Unremarkable. Spleen: Unremarkable. The spleen is normal in size. Adrenals: Normal. No mass. Kidneys and ureters: Normal. No hydronephrosis. Normal and symmetric renal enhancement. No hydronephrosis or hydroureter. Two cortical cysts are identified in the right kidney, the larger measuring up to 3.3 cm in the posterior upper pole. Stomach and bowel: Unremarkable. No obstruction. No mucosal thickening. The stomach is nondilated. The small and large bowel are normal in caliber. There are scattered diverticula in the colon, without pericolonic inflammatory changes to suggest diverticulitis. Appendix: A normal nondilated appendix is identified. Lymph nodes: Unremarkable. No enlarged lymph nodes. Intraperitoneal space: Unremarkable. No free air. No significant fluid collection. Reproductive: The prostate gland is again not identified and is presumed surgically absent. Bones/joints: No acute fractures are identified. Advanced multilevel spondylosis in the lower thoracic and lumbar spine. Subacute mild compression deformity at T11. Mild chronic loss of height of the T12 vertebral body. Postsurgical changes from previous posterior fusion at L5-S1. Bilateral hip and sacroiliac osteoarthritis. There are mottled foci of gas both within and immediately surrounding the lateral right 8th rib (see series 16, images 28-32) and in the lateral right 8th intercostal space (series 16, images 30-32 and series 14, images 124-127) with surrounding soft tissue thickening and fluid density. This unusual appearance is presumed to represent a localized gas-forming infection. Soft tissues: The bilateral obturator and gluteal arteries are again noted to be chronically occluded, not significantly changed. Other findings: The bilateral common, internal, and external iliac arteries and the common femoral arteries are patent, with moderate atherosclerotic mural calcification. IMPRESSION: 1. No evidence of aneurysm or dissection in the abdominal aorta. 2. Findings suspicious for early acute cholecystitis; see discussion above. There is a 4 cm x 3.1 cm x 3.3 cm subcapsular fluid and gas collection in the right hepatic lobe adjacent to the gallbladder fossa, most compatible with abscess. 3. Abnormal soft tissue thickening and soft tissue emphysema in the inferolateral right chest wall with foci of intraosseous gas in the lateral right 8th rib. This unusual appearance is highly suspicious for a gas-forming infection. 4. Multiple additional stable chronic and incidental/nonemergent findings are discussed in the body of the report. THIS REPORT CONTAINS FINDINGS THAT MAY BE CRITICAL TO PATIENT CARE. The findings were verbally communicated via telephone conference at 9:00 AM EDT on 07/12/[address] Johnson. The findings were acknowledged and understood. Dictated and Authenticated by: Chel Campbell MD. Ordering:DEQUAN Ridley MD
--- NOTE | 2021-07-12 09:24 | W.SURGCON ---
Date of service: 07/12/21 Time of Service: 10:51 Assessment and Plan Assessment and plan (1) Acute cholecystitis: Status: Acute Assessment and plan: -Possibly ascending cholangitis, most certainly needs his gallbladder drained -Recommend transfer to higher level of care where he can be seen by GI if ERCP for possible ERCP as well as IR for percutaneous cholecystostomy tube as patient is not a good surgical candidate -Start IV antibiotics, recommend Rocephin/Flagyl or Zosyn -[facility] at capacity, [facility] accepted patient; case was discussed with the hospitalist who also recommended transfer as patient's clinical condition began to deteriorate (2) Cancer of prostate: Status: Chronic (3) DNR (do not resuscitate): Status: Acute (4) Fall: Status: Acute (5) Acute dehydration: Status: Acute History of Present Illness Narrative: 80 year old male with complex medical history including metastatic prostate cancer currently on chemotherapy who was brought to the ER via ambulance after a fall this morning. He reports vomiting multiple times over the last several days and having loose stool. According to friend who is with him, this began after he ate a salad and got a piece of lettuce stuck in his throat several days ago. He denies fevers, chills, or any abdominal discomfort. Basic labs done in the ER revealed a leukocytosis of 14k and some mild electrolyte dyscrasias. Alkaline phosphatase, total bilirubin and AST were also elevated. CT scans of his chest abdomen and pelvis were done and revealed a distended and infected gallbladder with adjacent abscess. I was consulted to see the patient in regard to these findings. 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 Cottrell Lung metastasis Essential hypertension (Acute 08/10/13) FRS 30 % Medical History Age-related nuclear cataract of left eye (10/09/15) Age-related nuclear cataract of right eye (10/09/15) Allergic rhinitis Back pain Benign neoplasm of colon (05/03/11) 2007 [facility] [place]; colonoscopy 2013 Dr Nova [facility] [place] Carpal tunnel syndrome (09/19/13) L [facility] [place] 09/14/13 Cerumen impaction Cervical spinal stenosis (09/15/17) Conductive hearing loss, external ear DDD (degenerative disc disease), cervical (09/15/17) Disorder of sacrum Elevated cholesterol Epistaxis (07/29/16) GERD (gastroesophageal reflux disease) HLD (hyperlipidemia) HTN (hypertension) Hypertriglyceridemia (02/28/15) TG 690, Cardiology and patient elect to treat IFG (impaired fasting glucose) IFG (impaired fasting glucose) (02/23/13) Lumbosacral spondylosis without myelopathy Prostate cancer Right hand weakness Sacroiliac joint dysfunction of right side Shoulder pain Skin lesion of right leg Surgical History S/P cervical discectomy (06/13/18) Anterior discectomy and instrumented fusion C5-6 S/P lumbar spinal fusion 1986 and 1989 S/P prostatectomy (~03/2003) Status post lumbar spinal fusion (~10/2005) C5 Family History Mother , age 91 Cancer Father , age 64 Cancer Sister No problems noted. Sister , age 43 Cancer Sister Diabetes Brother , age 70 Cancer Diabetes Brother No problems noted. Son No problems noted. Maternal Grandfather , age 72 No problems noted. Paternal Grandfather No problems noted. Maternal Grandmother , age 80 No problems noted. Paternal Grandmother , age 54 Diabetes Heart disease Social History Smoking/Tobacco Use Status: Never Second Hand Exposure: Yes Smoking risk assessment performed?: Yes Alcohol Intake: former Drug use: Never Caregiver/Support person: Yes Pets and animals: Yes Pets and animals: cat(s) Sexually active: No Do you think of yourself as: straight/heterosexual What is your relationship status?: How often do you talk on the phone with friends or family?: decline to answer How often do you get together with friends or relatives?: never How often do you attend congregation or jew services?: decline to answer Do you belong to any clubs or organized social groups?: no Panel score (0-1 are the most socially isolated patients): 1 Debra/Confucianist: None Seatbelt use: always Helmet use: No Drive intox 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 Do you feel safe at home: Yes Do you feel safe in your relationship?: Yes Victim of physical abuse: No Victim of emotional abuse: No Victim of sexual abuse: No Exam Const General: cooperative, comfortable, no acute distress and frail appearing Nutritional Appearance: thin HENMT Head: normal to inspection, normocephalic and atraumatic Ears: hearing grossly impaired Resp Effort & Inspection: normal respiratory effort, able to speak in complete sentences, no audible wheezes, not labored, no respiratory distress and no use of accessory muscles Cardio Rate: tachycardic Rhythm: regular rhythm GI Inspection: normal to inspection and scaphoid Palpation: soft, not firm, no guarding, not rigid and nontender Percussion: normal to percussion Neuro General: patient alert, patient awake and patient oriented x3 Results Last Vital Signs Temp 101.5 F H 07/12/21 08:22 Pulse 132 H 07/12/21 09:01 Resp 35 H 07/12/21 09:01 BP 144/93 H 07/12/21 09:01 Pulse Ox 97 07/12/21 09:01 Labs Result diagrams: 07/12/21 07:00 07/12/21 07:00 Labs: Laboratory Results - last 24 hr 07/12/21 07/12/21 07/12/21 07:00 07:00 07:00 WBC 14.13 H RBC 3.13 L Hgb 9.6 L Hct 28.7 L MCV 91.7 MCH 30.7 MCHC 33.4 RDW 13.8 Plt Count 185 MPV 8.9 Immature Gran % 0.6 Neutrophils % 85.9 Lymphocytes % 5.0 Monocytes % 8.4 Eosinophils % 0.0 Basophils % 0.1 Nucleated RBC % 0 Absolute Neutrophils 12.14 H Absolute Lymphocytes 0.71 L Absolute Monocytes 1.19 H Absolute Eosinophils 0.00 Absolute Basophils 0.01 Sodium 131 L Potassium 3.5 Chloride 97 L Carbon Dioxide 23.5 Anion Gap 10.5 BUN 24 H Creatinine 1.1 Estimated GFR/1.73 m2 >= 60.00 Glucose 158 H Calcium 8.3 L Total Bilirubin 2.3 H Conjugated Bilirubin AST 116 H ALT 30 Alkaline Phosphatase 122 H Troponin I < 50 Total Protein 6.5 Albumin 2.3 L Lipase 33 Urine Color Urine Clarity Urine pH Ur Specific [place] Urine Protein Urine Ketones Urine Blood Urine Nitrite Urine Bilirubin Urine Urobilinogen Ur Leukocyte Esterase Urine RBC Urine WBC Ur Epithelial Cells Urine Crystals Urine Bacteria Urine Casts Urine Mucus Ur Culture Indicated? Urine Glucose COVID-19 Source Nasal/Nares SARS-CoV-2 (PCR) Negative 07/12/21 07/12/21 07:06 08:40 WBC RBC Hgb Hct MCV MCH MCHC RDW Plt Count MPV Immature Gran % Neutrophils % Lymphocytes % Monocytes % Eosinophils % Basophils % Nucleated RBC % Absolute Neutrophils Absolute Lymphocytes Absolute Monocytes Absolute Eosinophils Absolute Basophils Sodium Potassium Chloride Carbon Dioxide Anion Gap BUN Creatinine Estimated GFR/1.73 m2 Glucose Calcium Total Bilirubin Conjugated Bilirubin 0.7 H AST ALT Alkaline Phosphatase Troponin I Total Protein Albumin Lipase Urine Color Yellow Urine Clarity Clear Urine pH 5.5 Ur Specific [place] 1.020 Urine Protein 30 H Urine Ketones Trace H Urine Blood Small H Urine Nitrite Negative Urine Bilirubin Negative Urine Urobilinogen 0.2 Ur Leukocyte Esterase Negative Urine RBC 0-2 Urine WBC 0-2 Ur Epithelial Cells Few Urine Crystals Negative Urine Bacteria Negative Urine Casts Negative Urine Mucus Moderate Ur Culture Indicated? No Urine Glucose Negative COVID-19 Source SARS-CoV-2 (PCR)
[2021-07-12] MEDS: Acetaminophen 325 MG TAB 650 MG PO (09:31)
[2021-07-12 09:32] LABS: Lactate 1.9 mmol/L (0.6-1.4)
[2021-07-12] MEDS: PIPERACILLIN/TAZO 4.5 GM in Normal Saline 100 ML IVPB (09:32)
[2021-07-12] MEDS: Lactated Ringers 1,000 ML 1000 ML IV (10:21)
[2021-07-12] MEDS: Lactated Ringers 1,000 ML 150 ML IV (11:21)
[2021-07-12 12:32] LABS: Troponin I < 50 ng/L (<or=60)
--- NOTE | 2021-07-14 13:40 | NUR.NOTE ---
Nursing Note: Faxed to [facility] Medical ICU the preliminary and final blood culture results. Shelia Key [phone] P [phone]
== END 2021-07-12 12:14 | disposition still patient (30) ==
PROVIDERS: Student in an Organized Health Care Education/Training Program; Emergency Provider Student in an Organized Health Care Education/Training Program; PCP Family Medicine
DX: A41.9 Sepsis, unspecified organism (principal); R65.21 Severe sepsis with septic shock; K75.0 Abscess of liver; L02.213 Cutaneous abscess of chest wall; K81.0 Acute cholecystitis; R53.1 Weakness; R06.02 Shortness of breath; R05.1 Acute cough; W18.39XA Other fall on same level, initial encounter; E86.0 Dehydration
CPT/HCPCS: 36410; 36415; 71275; 74177; 80053; 83690; 87040; 87635; 93005; 96361; 96365; 96367; 99291; 70450; 70486; 81003; 81015; 82248; 83605; 84484; 85025; 93010; J2543; J3490

== ENCOUNTER → 2021-07-15 00:39 | Outpatient (CLI) | payer MEDICARE, SELFPAY | PROVIDERS: PCP Family Medicine; Visit Provider Internal Medicine Hematology & Oncology ==

== ENCOUNTER → 2021-07-16 02:02 | Outpatient (CLI) | payer MEDICARE, SELFPAY | PROVIDERS: PCP Family Medicine; Visit Provider Internal Medicine Hematology & Oncology ==

== ENCOUNTER 2021-09-02 18:16 | Outpatient (REF) | payer MEDICARE, SELFPAY ==
[2021-09-02 19:14] LABS: Anion Gap 12.9 mmol/L (3-11); BUN 13 mg/dL (7-18); CO2 22.1 mmol/L (21.0-32.0); CREATININE 0.8 mg/dL (0.70-1.30); Calcium 8.1 mg/dL (8.5-10.1); Chloride 101 mmol/L (98-107); Glucose 81 mg/dL (74-106); Sodium 136 mmol/L (136-145)
== END 2021-09-02 18:17 | disposition home or self-care (01) ==
LOC: LBN 18:16
PROVIDERS: PCP Family Medicine; Visit Provider Family Medicine
DX: U07.1 COVID-19 (principal)
CPT/HCPCS: 80048

== ENCOUNTER → 2021-09-30 01:57 | Outpatient (CLI) | payer MEDICARE, SELFPAY | PROVIDERS: PCP Family Medicine; Visit Provider Internal Medicine Hematology & Oncology ==